=== PATIENT | female | born 1995 | race African-American/Black ===

== ENCOUNTER 2020-07-25 09:50 | Outpatient (REF) | payer OTHER, SELFPAY ==
[2020-07-25 13:45] LABS: Syphilis Screen Nonreactive (Nonreactive)
[2020-07-25 14:20] LABS: CT PCR NOT DETECTED (Not Detect.); NG PCR NOT DETECTED (Not Detect.)
[2020-07-30 08:34] LABS: HBS Num1 1.86 mIU/mL (0-7.99); HBc Num1 0.05 S/CO (0.00-0.79); HBsAGNum1 0.16 S/CO (0.00-0.99); HIV AB/AG Nonreactive (Nonreactive); HIV Num 1 0.07 S/CO (0.00-0.99); Hepatitis B Core Antibody Nonreactive (Nonreactive); Hepatitis B Surface Antigen Negative (Negative); ~Hepatitis B Surface Antibody NONREACTIVE (Nonreactive)
[2020-07-30 09:41] LABS: ~HepC Num1 0.07 S/CO (0.00-0.79); ~Hepatitis C Antibody Nonreactive (Nonreactive)
[2020-07-30 10:26] LABS: HPV mRNA E6/E7 Not Detected (Not Detected)
== END 2020-07-25 09:51 | disposition home or self-care (01) ==
LOC: HO.LAB 09:50
PROVIDERS: PCP Internal Medicine; Visit Provider Advanced Practice Midwife
DX: Z01.411 Encounter for gynecological examination (general) (routine) with abnormal findings (principal); Z11.3 Encounter for screening for infections with a predominantly sexual mode of transmission; N64.4 Mastodynia; Z87.42 Personal history of other diseases of the female genital tract
CPT/HCPCS: 86704; 86706; 86780; 86803; 87340; 87389; 87491; 87591; 87624; 87625; 88142; 99395

== ENCOUNTER 2020-07-26 08:45 | Outpatient (REF) | payer OTHER, SELFPAY | END 2020-07-26 08:46 | disposition home or self-care (01) | LOC: HO.LAB 08:45 | PROVIDERS: Visit Provider Advanced Practice Midwife | DX: R79.89 Other specified abnormal findings of blood chemistry (principal) ==

== ENCOUNTER 2020-07-30 13:33 | Outpatient (REF) | payer OTHER, SELFPAY ==
--- NOTE | 2020-07-30 | US_ITS ---
EXAMINATION: US DIAGNOSTIC ULTRASOUND BREAST, RIGHT CLINICAL INFORMATION: 24-year-old female with right breast pain 10:00 position for 3 weeks. Palpable area noted at clinical exam in area of symptoms. No discharge. Family history breast cancer in maternal aunt. No prior right breast imaging. COMPARISON: Contralateral left breast ultrasound 07/18/2019. TECHNIQUE: Ultrasound right breast is targeted to the area of concern upper outer quadrant. Grayscale imaging and color Doppler are performed without and with harmonics. FINDINGS: There is no focal suspicious finding. There is no cystic or solid mass, architectural abnormality, duct ectasia, or edema in the soft tissue planes. Results are discussed with the patient at time of visit. IMPRESSION: Unremarkable targeted right breast ultrasound. ASSESSMENT: BI-RADS 1: Negative RECOMMENDATION: 1. Patient should be managed based on the clinical impression. If clinically indicated, further evaluation may be considered with surgical consult. Decision to proceed with biopsy should be based on clinical grounds and degree of clinical concern. 2. Otherwise, routine annual screening mammography, beginning age 40, or earlier as clinical risk factors warrant. This patient's information was entered into a reminder system with a target due date for their next breast imaging.
== END 2020-07-30 13:34 | disposition home or self-care (01) ==
LOC: HO.MAMMO 13:33
PROVIDERS: Visit Provider Advanced Practice Midwife
DX: N64.4 Mastodynia (principal)
CPT/HCPCS: 76642

== ENCOUNTER 2021-06-29 21:38 | Emergency (ER) | payer OTHER, SELFPAY ==
[2021-06-29 22:34] VITALS: BP 107/61; PULSE 58; RESP 16; TEMP 36.8; O2SAT 96; BMI 32.1
--- NOTE | 2021-06-30 00:45 | ED.ABDPAIN ---
HPI - Abdominal Pain General Chief Complaint: Abdominal Pain Stated Complaint: Abdominal pain Time Seen by Provider: 06/30/21 00:45 Source: patient Mode of arrival: ambulatory History of Present Illness HPI narrative: 25-year-old female with 2 month history of epigastric/periumbilical pain that is intermittently associated with burning and nausea with some chills but otherwise denies any fever or vomiting and denies any diarrhea. Otherwise, she has not been worked up for this and denies any urinary symptoms. LMP 06/19. Related Data Home Medications Medication Instructions Recorded Confirmed cetirizine 10 mg tablet 10 mg PO DAILY PRN 07/25/20 01/15/21 Previous Rx's Medication Instructions Recorded escitalopram oxalate 10 mg tablet 10 mg PO DAILY 30 Days #30 tab 01/21/21 famotidine 40 mg tablet 40 mg PO DAILY PRN 30 Days #30 tab 01/21/21 hydroxyzine HCl 25 mg tablet 25 mg PO Q6H PRN 30 Days #120 tab 01/21/21 topiramate 25 mg tablet 25 mg PO BEDTIME 30 Days #30 tab 01/21/21 Allergies Allergy/AdvReac Type Severity Reaction Status Date / Time amoxicillin [From AUGMENTIN] Allergy Unknown HIVES Verified 01/15/21 15:46 bee pollen [Bee Stings] Allergy Unknown SWELLING Verified 01/15/21 15:46 cephalexin [CEPHALEXIN] Allergy Unknown HIVES Verified 01/15/21 15:46 clavulanic acid Allergy Unknown HIVES Verified 01/15/21 15:46 [From AUGMENTIN] Review of Systems Review of Systems Pertinent positives and negatives as stated in HPI 10 point review of systems is otherwise negative. Physical Exam Vital Signs: Vital Signs: Last Vital Signs Temp 98.3 F 06/29/21 22:34 Pulse 58 06/29/21 22:34 Resp 16 06/29/21 22:34 BP 107/61 06/29/21 22:34 Pulse Ox 96 06/29/21 22:34 Body Mass Index 32.1 VITAL SIGNS: Reviewed. GENERAL: Well developed, well nourished, in no acute distress. HEAD: Normocephalic/atraumatic EYES: PERRLA, EOMI OROPHARYNX: no oral lesions noted, posterior pharynx clear LUNGS: Normal breath sounds. SpO2<96> CARDIOVASCULAR: Regular rate and rhythm without noted murmurs ABDOMEN: Soft, tenderness in epigastrium as well as left lower quadrant without rebound, non-distended with bowel sounds. SKIN: Inspection of the skin reveals no rashes NEUROLOGIC: Alert and oriented x 4. Course Course Course Narrative: 25-year-old female with history and clinical presentation suggestive of possible gastritis/ulcer as location and history are less consistent with gallbladder or pancreas pathology. 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 Patient wishes to leave and is otherwise hemodynamically stable and despite discussing with the patient any risks she wishes to follow-up with her primary care provider on Thursday morning. Discharge Plan Discharge Clinical Impression: Abdominal discomfort Patient Disposition: Elopement Additional Instructions: Return to the ER for acute worsening of symptoms. Prescriptions: No Action famotidine 40 mg tablet 40 mg PO DAILY PRN (Reason: heartburn) 30 Days Qty: 30 RF: 5 escitalopram oxalate 10 mg tablet 10 mg PO DAILY 30 Days Qty: 30 RF: 3 hydroxyzine HCl 25 mg tablet 25 mg PO Q6H PRN (Reason: anxiety) 30 Days Qty: 120 RF: 3 topiramate 25 mg tablet 25 mg PO BEDTIME 30 Days Qty: 30 RF: 3 cetirizine 10 mg tablet 10 mg PO DAILY PRNRF: 0 Referrals: Tom Lucero MD [Primary Care Provider] - 2 days [facility] Past Medical History Source: nursing notes reviewed Medical History Anxiety GERD without esophagitis Migraine Obesity (BMI 30-39.9) Pseudotumor cerebri Skin abscess Surgical History Hx of gastric bypass Family History Family History Mother Cervical cancer Family history of stomach cancer Social History Social History Alcohol intake: never Advance Directives: No Advance Directives Information Provided: No Patient : No Gender identity: Female
--- NOTE | 2021-06-30 01:08 | PC.NURSE ---
PT LEFT ER AFTER SPEAKING WITH MD.
== END 2021-06-30 01:00 | disposition left against medical advice (07) ==
PROVIDERS: Emergency Provider Student in an Organized Health Care Education/Training Program; PCP Internal Medicine
DX: R10.9 Unspecified abdominal pain (principal)
CPT/HCPCS: 99283

== ENCOUNTER 2021-07-15 11:42 | Outpatient (REF) | payer OTHER, SELFPAY ==
[2021-07-15 13:21] LABS: Alanine Aminotransferase 9 U/L (0-31); Albumin Level 4.1 g/dL (3.5-5.0); Alkaline Phosphatase 31 U/L (39-117); Amylase 50 U/L (28-100); Anion Gap 12 (12-20); Aspartate Amino Transferase 15 U/L (5-31); Bilirubin Direct < 0.2 mg/dL (0.0-0.5); Bilirubin Total 0.3 mg/dL (0.0-1.0); Blood Urea Nitrogen 10 mg/dL (9-16); Calcium 9.4 mg/dL (8.4-10.2); Carbon Dioxide 25 mmol/L (22-29); Chloride 106 mmol/L (96-108); Cholesterol 149 mg/dL; Estimated Glomerular Filt Rate > 60; Glucose Random 84 mg/dL (60-115); HDL Cholesterol 50 mg/dL; LDL Cholesterol Calculated 92 mg/dl; Lipase 34 U/L (8-78); Potassium 4.6 mmol/L (3.3-5.1); Sodium 138 mmol/L (135-145); Total Protein 6.9 g/dL (6.5-8.0); Triglycerides 35 mg/dL
== END 2021-07-15 11:43 | disposition home or self-care (01) ==
LOC: HO.LAB 11:42
PROVIDERS: PCP Internal Medicine; Visit Provider Nurse Practitioner Family
DX: R10.13 Epigastric pain (principal); E78.00 Pure hypercholesterolemia, unspecified
CPT/HCPCS: 36415; 80048; 80061; 80076; 82150; 83690

== ENCOUNTER 2021-07-23 08:15 | Outpatient (REF) | payer OTHER, SELFPAY ==
--- NOTE | ~2021-07-23 | US_ITS ---
EXAMINATION: US ABDOMEN COMPLETE CLINICAL INFORMATION: Epigastric pain with nausea and vomiting x2 months. Right upper quadrant radiation pain with palpation. COMPARISON: None TECHNIQUE: Real-time imaging of the abdominal viscera. FINDINGS: PANCREAS: Normal. ABDOMINAL AORTA: The proximal, mid, and distal segments are normal in caliber. INFERIOR VENA CAVA: Visualized portions are normal. LIVER: Normal. The liver is normal in size. The liver contour is normal. Parenchymal echogenicity is normal. No focal hepatic lesion. There is no intrahepatic biliary duct dilatation seen. GALLBLADDER: Normal. The gallbladder is physiologically distended without evidence of stones, sludge, polyps, wall thickening or pericholecystic fluid. COMMON BILE DUCT: Normal in caliber measuring 0.2 cm in diameter. RIGHT KIDNEY: Normal. No hydronephrosis. No renal calculi or focal parenchymal lesions. The kidney measures 10.0 cm in maximum dimension. LEFT KIDNEY: There is a 4 x 5 mm echogenic lesion in the lower pole of the left kidney suggestive of an angiomyolipoma. There is a 2 mm echogenic density in the midpole with twinkle artifact suggestive of a stone. No hydronephrosis or focal parenchymal lesions. The kidney measures 10.7 cm in maximum dimension. SPLEEN: Normal. The spleen measures 11.9 cm in maximum dimension. FREE FLUID: None. US/US abdomen complete IMPRESSION: Normal-appearing liver and gallbladder. Question small left renal stone and 4 x 5 mm angiomyolipoma.
== END 2021-07-23 08:16 | disposition home or self-care (01) ==
LOC: HO.HMGCX 08:15
PROVIDERS: PCP Internal Medicine; Visit Provider Nurse Practitioner Family
DX: R10.13 Epigastric pain (principal); R10.11 Right upper quadrant pain; R11.2 Nausea with vomiting, unspecified
CPT/HCPCS: 76700

== ENCOUNTER 2021-08-08 09:18 | Outpatient (REF) | payer OTHER, SELFPAY ==
--- NOTE | ~2021-08-08 | CT_ITS ---
EXAMINATION: CT ABDOMEN WITHOUT AND WITH CONTRAST CLINICAL INFORMATION: Benign lipomatous neoplasm of the kidney COMPARISON: Previous abdominal ultrasound 07/23/2021 TECHNIQUE: Contiguous axial thin section helical images of the abdomen were performed before and after the administration of oral contrast and 85 mL of Omnipaque 350 intravenous contrast. The data set was reformatted in the coronal and sagittal planes and reviewed on an independent workstation. This CT examination was performed using dose optimization techniques as appropriate, variously including the following: *Automated exposure control *Adjustment of mA and/or kV according to patient size (this includes techniques or standardized protocols for targeted exams where dose is matched to indication/reason for exam; i.e. extremities or head) *Use of iterative reconstruction technique DLP: 599 mGy-cm FINDINGS: LUNG BASES: The lung bases are clear. LIVER, GALLBLADDER, AND BILIARY TREE: Unremarkable PANCREAS: Unremarkable SPLEEN: Unremarkable ADRENAL GLANDS AND KIDNEYS: There is a 4 mm low-attenuation lesion in the lower pole of the left kidney. This has negative Hounsfield units suggestive of a small angiomyolipoma. Kidneys are otherwise unremarkable. The adrenal glands are unremarkable. BOWEL LOOPS: There are postsurgical changes from gastric bypass. Visualized small and large bowel is unremarkable. LYMPH NODES: Normal. VASCULAR: Unremarkable. 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 Postoperative changes from gastric bypass.
[2021-08-08] MEDS: iohexoL 350 MG/ML 100 ML INFUS..BTL IV (10:44)
== END 2021-08-08 09:19 | disposition home or self-care (01) ==
LOC: HO.CT 09:18
PROVIDERS: PCP Internal Medicine; Visit Provider Nurse Practitioner Family
DX: D17.71 Benign lipomatous neoplasm of kidney (principal); R10.13 Epigastric pain
CPT/HCPCS: 74170; Q9967

== ENCOUNTER 2021-08-23 10:36 | Outpatient (AMB) | payer OTHER, SELFPAY ==
[2021-08-23 10:51] VITALS: BP 118/70; PULSE 62; TEMP 35.9; O2SAT 98; BMI 31.3
--- NOTE | 2021-08-23 10:51 | A.OFFPC_ITS ---
Vital Signs 08/23/21 10:51 Height 5 ft 3 in Weight 177 lb BMI 31.3 BP 118/70 Pulse 62 Pulse Source Pulse Oximeter Temp 96.6 F L Pulse Oximetry (%) 98 Oxygen Delivery Method Room Air Intake Visit Reasons: Annual PE, migraine, anxiety, GERD Allergies amoxicillin [From AUGMENTIN] Allergy (Unknown, Verified 06/28/23 13:31) HIVES bee pollen [Bee Stings] Allergy (Unknown, Verified 06/28/23 13:31) SWELLING cephalexin [CEPHALEXIN] Allergy (Unknown, Verified 06/28/23 13:31) HIVES clavulanic acid [From AUGMENTIN] Allergy (Unknown, Verified 06/28/23 13:31) HIVES Medication List - Last Reconciled 08/23/21 by Tom Lucero MD acetaminophen 500 mg PO Q6H PRN aripiprazole 5 mg PO DAILY omeprazole 20 mg PO BID Tobacco use date assessed: 08/23/21 HPI Annual PE, migraine, anxiety, GERD HPI Details Patient comes in today for her annual physical examination States that she has been experiencing frequent migraine headaches lately She denies any dizziness Denies any chest pains, no SOB Still has on and off nausea and vomiting, especially when she has increased headaches States that she also continues to experience recurrent epigastric pains even though she has been taking her Omeprazole BID, although her Omeprazole has helped somewhat No change in bowel habits noted Denies any acute urinary symptoms PFSH Medical History Insomnia Major depression, recurrent GERD without esophagitis Obesity (BMI 30-39.9) Pseudotumor cerebri Migraine Anxiety Skin abscess Surgical History Hx of gastric bypass (~11/30/18) Family History Mother Cervical cancer Family history of stomach cancer Substance use disorder Other Mental health disorder Social History Household Members: Spouse and Children Housing: House Alcohol intake: never Patient Tobacco Use Status: Never used Tobacco e-Cigarette/Vaping Use: Never Used Second Hand Smoke Exposure: No Substance Use Type: Marijuana service: No Current occupational status: employed 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 1. Little interest or pleasure in doing things: not at all 2. Feeling down, depressed, or hopeless: not at all 3. Trouble falling or staying asleep, or sleeping too much: not at all 4. Feeling tired or having little energy: not at all 5. Poor appetite or overeating: not at all 6. Feeling bad about yourself - or that you are a failure or have let yourself or your family down: not at all 7. Trouble concentrating on things, such as reading the newspaper or watching television: not at all 8. Moving or speaking so slowly that other people could have noticed. Or the opposite - being so fidgety or restless that you have been moving around a lot more than usual: not at all 9. Thoughts that you would be better off or of hurting yourself in some way: not at all Total score: 0 Depression Screening Interpretation: Negative 54442 - PHQ-9 Billing: Yes Source: Developed by Drs. Lester Martinez, Janis Grace, Jaspreet Harding and colleagues, with an educational jersey from [employer]. Thrive Questionnaire Date Thrive assessed: 08/23/21 I am a: Patient What is your living situation today?: I have a steady place to live Within the past 12 months, did the food you bought not last and you didn't have the money to get more?: Never true Within the past 12 months, did you worry whether your food would run out before you got money to buy more?: Never true Do you have trouble paying for medicines?: No Do you have trouble getting transportation to medical appointments?: No Do you have trouble paying your heating and electricity bill?: No Do you have trouble taking care of your child, family member or friend?: No Do you have trouble with day-to-day activities such as bathing, preparing meals, shopping, managing finances, etc.?: No Are you currently unemployed and looking for a job?: No Are you interested in more education?: No Currently or been in a relationship where the following occur: no concerns reported AUDIT C Alcohol Use Questionnaire (AUDIT-C) 1. How often do you have a drink containing alcohol?: Never 3. How often do you have six or more drinks on one occasion?: Never Total Score: 0 Score Reviewed/Action Taken: Yes JOVANNA-7 AMB Questionnaire JOVANNA-7 Date JOVANNA - 7 assessed: 08/23/21 Feeling nervous, anxious, or on edge: 0 = Not at all Not being able to stop or control worryin = Not at all Worrying too much about different things: 0 = Not at all Trouble relaxin = Not at all Being so restless that it is hard to sit still: 0 = Not at all Becoming easily annoyed or irritable: 0 = Not at all Feeling afraid as if something awful might happen: 0 = Not at all Total JOVANNA-7 score (0-4 normal; 5-9 mild; 10-14 moderate; 15-21 severe): 0 Source: Developed by Drs. Lester Martinez, Janis Grace, Jaspreet Harding and colleagues, with an educational jersey from [employer]. Review of Systems Const Denies chills, Denies fatigue, Denies fever(s), Reports headache(s) (on and off) and Denies malaise Eyes Denies blurry vision, Denies change in vision, Denies irritation and Denies itchy eyes ENT Denies dysphagia, Denies dizziness, Denies otalgia, Reports headache(s) (on and off), Denies nasal congestion, Denies neck pain, Denies odynophagia, Denies sinus pain and Denies sore throat Card Denies chest pain, Denies rapid heart rate, Denies irregular heart rhythm, Denies palpitations and Denies dyspnea Resp Denies chest congestion, Denies cough, Denies dyspnea and Denies wheezing GI Reports abdominal pain (epigastric, on and off), Denies bloating, Denies constipation, Denies dysphagia, Denies heartburn, Denies diarrhea, Reports nausea (at times, especially when headaches are increased), Denies odynophagia and Reports vomiting (occasionally) Denies hematuria, Denies urinary frequency, Denies dysuria, Denies urinary incontinence and Denies urinary urgency Musc Denies back pain, Denies arthralgias, Denies joint swelling, Denies muscle weakness and Denies neck pain Skin/Breast Denies breast pain, Denies breast mass, Denies change in pigmentation, Denies le sions, Denies rash and Denies unusual bruising Neuro Denies dizziness, Reports headache(s) (on and off) and Denies paresthesias Psych Denies anxiety and Denies depression Endo Denies fatigue and Denies palpitations [place]/Lymph Denies easy bruising Aller/Immun Denies itchy eyes and Denies wheezing Physical exam (Primary Care) Vital Signs: Last Vital Signs Temp 96.6 F L 08/23/21 10:51 Pulse 62 08/23/21 10:51 BP 118/70 08/23/21 10:51 Pulse Ox 98 08/23/21 10:51 Oxygen Delivery Method Room Air 08/23/21 10:51 BMI result Body Mass Index 31.3 Tobacco/Smoking Status: Tobacco use Status Tobacco use date assessed 08/23/21 08/23/21 10:56 Patient Tobacco Use Status Never used Tobacco 08/23/21 10:56 e-Cigarette/Vaping Use Never Used 08/23/21 10:56 PHQ-9: PHQ-9 Score PHQ-9: Total score 0 08/23/21 11:34 Depression Screening Interpretation: Negative Thrive Assessment: Date of Thrive Assessment Date Thrive assessed 08/23/21 08/23/21 10:56 Currently or been in a relationship where the following occur: no concerns reported Const General: no acute distress, alert and awake Orientation/consciousness: patient oriented x3 HENMT Head: Yes normocephalic and Yes atraumatic Ears: external ears normal, TM's normal bilaterally and EAC's normal General nose exam: No nasal discharge present Face and sinus: Yes normal facial exam and Yes sinuses nontender Teeth and gingiva: dentition normal Throat: Yes posterior oropharynx normal and Yes tonsils normal (no TP congestion) Eyes Eyelids: Yes eyelids normal Conjunctivae: conjunctivae normal Pupils: Equal, round and reactive pupils present EOM: EOMs intact bilaterally Neck Neck: Yes no lymphadenopathy and Yes supple Thyroid: Thyroid normal Resp Auscultation: clear to auscultation bilaterally, no rales and no wheezes Cardio Rate: regular rate Rhythm: regular rhythm Heart sounds: no murmurs GI Palpation (GI): Soft to palpation, Tenderness to palpation present (GI) in the epigastrum, no guarding, No hepatosplenomegaly present and No Rebound tenderness present Auscultation: normal bowel sounds General: Yes no CVA tenderness Back/Spine/Pelvis Back: no CVA tenderness Thoracic/Lumbar Spine: thoracic and lumbar spine normal to inspection Skin Lesions: no lesions Rashes: no rashes Neuro General: patient oriented x3, moves all extremities, no focal motor deficits and CN's II-XI intact bilaterally Cranial nerves: Yes Equal, round and reactive pupils present Cognition (Neuro): normal cognition Gait exam (Neuro): Normal gait present Extrem General: Yes no clubbing, cyanosis or edema Office Procedures Flu Questionnaire Does the patient have a severe egg allergy?: No Does the patient have severe life threatening allergies?: No Does the patient have a fever or illness today?: No Has the patient ever had Guillain-[place] Syndrome?: No Has the patient ever had any past reaction to a flu shot?: No Immunizations flu vacc [id number] 6mos up(PF) 60 mcg(15 mcgx4)/0.5 mL IM syringe Performing Provider: Tom Lucero MD [facility] Documented (not given) by: PUJA Mendez on 08/23/21 10:56 Reason Not Given: Patient Refused Assessment and Plan Assessment & Plan (1) Annual physical exam: Code(s): Z00.00 - Encounter for general adult medical examination without abnormal findings Plan: Check labs (2) Abdominal pain: Code(s): R10.9 - Unspecified abdominal pain Qualifiers: Abdominal location: epigastric Qualified Code(s): R10.13 - Epigastric pain Plan: Reinforced dietary restrictions Continue Omeprazole 40 mg QD; will start her additionally on Carafate 1 gm QID Follow up with GI as scheduled (3) Migraine: Code(s): G43.909 - Migraine, unspecified, not intractable, without status migrainosus Qualifiers: Intractability: not intractable Migraine type: unspecified Status migrainosus presence: without status migrainosus Qualified Code(s): G43.909 - Migraine, unspecified, not intractable, without status migrainosus Plan: Reinforced avoidance of migraine triggers Will start patient on Topiramate 25 mg Q HS for migraine headache prophylaxis (4) Insomnia: Code(s): G47.00 - Insomnia, unspecified Qualifiers: Insomnia type: unspecified Qualified Code(s): G47.00 - Insomnia, unspecified Plan: Sleep hygiene reinforced Continue Trazodone 50 mg Q HS PRN (5) Bipolar 2 disorder, major depressive episode: Code(s): F31.81 - Bipolar II disorder Plan: Continue Risperidone 0.5 mg Q HS Follow up with psychiatry as scheduled (6) Obesity (BMI 30-39.9): Code(s): E66.9 - Obesity, unspecified Plan: Reinforced diet/exercise as tolerated/lose weight Plan Follow up in 3 months Orders: Orders UA CC w/rflx Micro + Cult 08/28/21 Z00.00 - Encounter for general adult medical examination without abnormal findings, R10.9 - Unspecified abdominal pain TSH reflex Free T4 08/28/21 Z00.00 - Encounter for general adult medical exami nation without abnormal findings Influenza [id number] Immunization 08/23/21 Z23 - Encounter for immunization Complete Blood Count Auto Diff 08/28/21 Z00.00 - Encounter for general adult medical examination without abnormal findings Medications: New topiramate 25 mg PO BEDTIME 30 tabs 3RF 30 days G43.909 - Migraine, unspecified, not intractable, without status migrainosus sucralfate (Carafate) 1 g PO QIDACHS 120 tabs 3RF 30 days R10.9 - Unspecified abdominal pain Coding Level of Care Code Est Pt Prev Care 18-39y([id number]) Diagnoses Annual physical exam Z00.00 Epigastric pain R10.13 Abdominal location: epigastric Migraine without status migrainosus, not intractable, unspecified migraine type G43.909 Intractability: not intractable Migraine type: unspecified Status migrainosus presence: without status migrainosus Insomnia, unspecified type G47.00 Insomnia type: unspecified Bipolar 2 disorder, major depressive episode F31.81 Obesity (BMI 30-39.9) E66.9 Additional Codes PHQ-9 - 82837 - PHQ-9 Billing: Yes ([id number])
== END 2021-08-23 11:51 | disposition home or self-care (01) ==
LOC: HO.HMGH 10:36
PROVIDERS: PCP Internal Medicine; Visit Provider Internal Medicine
DX: Z00.00 Encounter for general adult medical examination without abnormal findings (principal); R10.13 Epigastric pain; G43.909 Migraine, unspecified, not intractable, without status migrainosus; F31.81 Bipolar II disorder; G47.00 Insomnia, unspecified; E66.9 Obesity, unspecified; Z68.31 Body mass index [BMI] 31.0-31.9, adult; Z23 Encounter for immunization; R10.9 Unspecified abdominal pain
CPT/HCPCS: 99395

== ENCOUNTER 2021-08-28 09:57 | Outpatient (REF) | payer OTHER, SELFPAY ==
[2021-08-28 11:19] LABS: MANUAL DIFF FLAG NO
[2021-08-28 11:55] LABS: Basophils Absolute Auto 0.1 X10*3/uL (0.0-0.2); Basophils Percent Auto 1.1 % (0-2); Eosinophils Absolute Auto 0.1 X10*3/uL (0.0-0.4); Eosinophils Percent Auto 2.5 % (0-4); Hematocrit 38.3 % (37.0-47.0); Hemoglobin 12.4 g/dl (12.0-16.0); Imm Gran Abs Auto 0.01 X10*3/uL (0.00-0.03); Imm Gran Pct Auto 0.2 % (0.0-0.4); Lymphocytes Absolute Auto 1.9 X10*3/uL (1.2-4.9); Lymphocytes Percent Auto 36.2 % (20-40); Mean Corpuscular HGB Conc 32.4 g/dl (31.0-35.0); Mean Corpuscular Volume 92.7 fL (80.0-98.0); Mean Platelet Volume 11.4 fL (9.4-12.3); Monocytes Absolute Auto 0.5 X10*3/uL (0.1-1.2); Monocytes Percent Auto 9.8 % (2-11); Neutrophils Absolute Auto 2.7 x10*3/uL (2.0-8.3); Neutrophils Percent Auto 50.2 % (45-73); Platelet Count 199 X10*3/uL (160-400); Red Blood Count 4.13 X10*6/uL (4.20-5.50); Red Cell Distribution Width 12.9 % (11.0-16.0); White Blood Count 5.3 X10*3/uL (4.8-10.8)
[2021-08-28 11:59] LABS: Appearance Urine CLEAR; Color Urine YELLOW; Glucose Urine UA NEG (NEG); Leukocyte Esterase Urine NEG (NEG); Nitrite Urine NEG (NEG); Specific Gravity - Urine 1.025 (1.005-1.025); Urine Blood NEG (NEG); Urine Ketones 5 MG/DL (NEG); Urine Protein NEG (NEG-TRACE)
[2021-08-28 12:39] LABS: HIV AB/AG Nonreactive (Nonreactive); HIV Num 1 0.06 S/CO (0.00-0.99)
[2021-08-28 12:47] LABS: Syphilis Screen Nonreactive (Nonreactive)
[2021-08-29 10:56] LABS: BV Int Neg Control Negative (Negative); BV Int Pos Control Positive (Positive)
== END 2021-08-28 09:58 | disposition home or self-care (01) ==
LOC: HO.LAB 09:57
PROVIDERS: Advanced Practice Midwife; PCP Internal Medicine; Referring Provider Internal Medicine; Visit Provider Advanced Practice Midwife
DX: Z00.00 Encounter for general adult medical examination without abnormal findings (principal); Z11.3 Encounter for screening for infections with a predominantly sexual mode of transmission; Z11.4 Encounter for screening for human immunodeficiency virus [HIV]; N89.8 Other specified noninflammatory disorders of vagina; R10.9 Unspecified abdominal pain
CPT/HCPCS: 36415; 81003; 84443; 85025; 86780; 87389; 87480; 87510; 87660

== ENCOUNTER 2022-08-08 11:45 | Outpatient (RCR) | payer OTHER, SELFPAY ==
[2022-08-08 12:15] VITALS: BMI 31.6
--- NOTE | 2022-08-08 13:30 | PC.ADMIT ---
Patient is a 26 year old female who was referred to [facility] by her PCP's office d/t increased sxs of depression and passive SI, no plan or intent to kill herself. Patient struggling with suicidal thoughts. Denied suicidal thoughts at present. Asked patient who she could reach out to when having these thoughts and she stated she could call crisis. Patient has a long history of self harming behavior, last cut herself last month. She also reports a, bad relationship with food and restricts her food intake at times and other times purges when she eats too much. Patient is at [facility] to learn healthier coping skills to deal with her emotions. Patient wants to learn more about herself while in the program and stated she wants to be happy. Patient is alert and oriented x4. Calm and cooperative. Medications reconciled with patient and patient's pharmacy.
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
--- NOTE | 2022-08-12 09:32 | PC.NURSE ---
Patient came in this morning and c/o a cough. Patient advised to get Covid tested at [facility] and take the day off. PHP team is aware.
--- NOTE | 2022-08-12 14:09 | PM.EVENT ---
Event Note Date of Service: 08/12/22 Event Note: Patient currently out with COVID. One month prescription sent in for Risperdal and trazodone. Patient already had a 1 month supply of Lamictal titration.
--- NOTE | 2022-08-15 08:34 | HO.PHPIOP ---
The client decided that she is too anxious to continue in PHP and requested a referral for outpatient tx. I made the referral to [facility] . She is set with an appointment for Eric Curtis [facility] 08/29, and Mayur Huddleston 09/15 and 10/05
== END 2022-08-12 23:59 | disposition home or self-care (01) ==
LOC: HO.PHPA 11:45
PROVIDERS: Visit Provider Psychiatry & Neurology Psychiatry
DX: F31.81 Bipolar II disorder (principal); Z91.51 Personal history of suicidal behavior
CPT/HCPCS: 90792; 90853

== ENCOUNTER 2022-08-12 08:59 | Outpatient (REF) | payer OTHER, SELFPAY ==
[2022-08-12 09:25] LABS: COVID-19 Test Positive (Negative)
== END 2022-08-12 09:00 | disposition home or self-care (01) ==
LOC: HO.LAB 08:59
PROVIDERS: Visit Provider Internal Medicine
DX: Z20.822 Contact with and (suspected) exposure to COVID-19 (principal)
CPT/HCPCS: 87635; C9803

== ENCOUNTER 2022-09-02 10:56 | Outpatient (REF) | payer OTHER, SELFPAY ==
[2022-09-03 13:57] LABS: BV Int Neg Control Negative (Negative); BV Int Pos Control Positive (Positive)
== END 2022-09-02 10:57 | disposition home or self-care (01) ==
LOC: HO.LNP 10:56
PROVIDERS: Visit Provider Advanced Practice Midwife
DX: Z01.419 Encounter for gynecological examination (general) (routine) without abnormal findings (principal)
CPT/HCPCS: 87480; 87510; 87660

== ENCOUNTER 2022-09-02 11:16 | Outpatient (REF) | payer OTHER, SELFPAY ==
[2022-09-02 11:32] LABS: MANUAL DIFF FLAG NO
[2022-09-02 11:59] LABS: Basophils Percent Auto 0.8 % (0-2); Eosinophils Absolute Auto 0.1 X10*3/uL (0.0-0.4); Eosinophils Percent Auto 2.1 % (0-4); Hematocrit 40.2 % (37.0-47.0); Hemoglobin 13.1 g/dl (12.0-16.0); Imm Gran Abs Auto 0.06 X10*3/uL (0.00-0.03); Imm Gran Pct Auto 1.1 % (0.0-0.4); Lymphocytes Absolute Auto 1.3 X10*3/uL (1.2-4.9); Lymphocytes Percent Auto 24.7 % (20-40); Mean Corpuscular HGB Conc 32.6 g/dl (31.0-35.0); Mean Corpuscular Hemoglobin 29.7 pg (27.0-33.0); Mean Corpuscular Volume 91.2 fL (80.0-98.0); Mean Platelet Volume 11.4 fL (9.4-12.3); Monocytes Absolute Auto 0.5 X10*3/uL (0.1-1.2); Monocytes Percent Auto 9.9 % (2-11); Neutrophils Absolute Auto 3.2 x10*3/uL (2.0-8.3); Neutrophils Percent Auto 61.4 % (45-73); Platelet Count 200 X10*3/uL (160-400); Red Blood Count 4.41 X10*6/uL (4.20-5.50); Red Cell Distribution Width 13.1 % (11.0-16.0); White Blood Count 5.2 X10*3/uL (4.8-10.8)
[2022-09-02 12:43] LABS: HBc Num1 0.05 S/CO (0.00-0.79); HIV AB/AG Nonreactive (Nonreactive); HIV Num 1 0.06 S/CO (0.00-0.99); Hepatitis B Core Antibody Nonreactive (Nonreactive); ~HepC Num1 0.08 S/CO (0.00-0.79); ~Hepatitis C Antibody Nonreactive (Nonreactive)
[2022-09-02 12:55] LABS: Alanine Aminotransferase 8 U/L (0-31); Albumin Level 4.2 g/dL (3.5-5.0); Alkaline Phosphatase 39 U/L (39-117); Anion Gap 11 (12-20); Aspartate Amino Transferase 13 U/L (5-31); Bilirubin Total 0.5 mg/dL (0.0-1.0); Blood Urea Nitrogen 15 mg/dL (9-16); Calcium 9.1 mg/dL (8.4-10.2); Carbon Dioxide 25 mmol/L (22-29); Chloride 108 mmol/L (96-108); Cholesterol 153 mg/dL; Estimated Glomerular Filt Rate > 60; Glucose Fasting 85 mg/dL (60-99); HDL Cholesterol 52 mg/dL; LDL Cholesterol Calculated 95 mg/dl; Potassium 4.9 mmol/L (3.3-5.1); Sodium 139 mmol/L (135-145); Triglycerides 32 mg/dL
[2022-09-02 13:05] LABS: Appearance Urine Clear; Color Urine Yellow; Glucose Urine UA Negative (Negative); Leukocyte Esterase Urine Negative (Negative); Nitrite Urine Negative (Negative); Urine Blood Negative (Negative); Urine Ketones Negative (Negative); Urine Protein Negative (Neg-Trace)
[2022-09-02 16:39] LABS: Vitamin D 25-OH Total 27.6 ng/mL (>30)
[2022-09-02 17:19] LABS: CT PCR NOT DETECTED (Not Detect.); NG PCR NOT DETECTED (Not Detect.)
[2022-09-03 07:09] LABS: Syphilis Screen Nonreactive (Nonreactive)
== END 2022-09-02 11:17 | disposition home or self-care (01) ==
LOC: HO.LAB 11:16
PROVIDERS: Absent Provider Internal Medicine; PCP Internal Medicine; Visit Provider Advanced Practice Midwife
DX: Z00.00 Encounter for general adult medical examination without abnormal findings (principal); Z11.3 Encounter for screening for infections with a predominantly sexual mode of transmission; Z11.4 Encounter for screening for human immunodeficiency virus [HIV]; E55.9 Vitamin D deficiency, unspecified; R30.0 Dysuria; E78.00 Pure hypercholesterolemia, unspecified; K21.9 Gastro-esophageal reflux disease without esophagitis; G43.909 Migraine, unspecified, not intractable, without status migrainosus; F33.9 Major depressive disorder, recurrent, unspecified; E66.9 Obesity, unspecified; Z20.2 Contact with and (suspected) exposure to infections with a predominantly sexual mode of transmission
CPT/HCPCS: 36415; 80053; 80061; 81003; 82306; 84443; 85025; 86704; 86780; 86803; 87389; 87491; 87591

== ENCOUNTER 2023-01-02 08:15 | Outpatient (REF) | payer OTHER, SELFPAY ==
[2023-01-03 12:52] LABS: BV Int Neg Control Negative (Negative); BV Int Pos Control Positive (Positive)
== END 2023-01-02 08:16 | disposition home or self-care (01) ==
LOC: HO.LNP 08:15
PROVIDERS: PCP Internal Medicine; Visit Provider Advanced Practice Midwife
DX: R10.2 Pelvic and perineal pain (principal); N93.0 Postcoital and contact bleeding; N76.0 Acute vaginitis
CPT/HCPCS: 87480; 87510; 87660; 99212

== ENCOUNTER 2023-05-28 13:27 | Outpatient (REF) | payer OTHER, SELFPAY ==
[2023-05-29 03:20] LABS: HBS Num1 1.38 mIU/mL (0-7.99); HBc Num1 0.18 S/CO (0.00-0.79); HBsAGNum1 0.33 S/CO (0.00-0.99); Hepatitis B Core Antibody Nonreactive (Nonreactive); Hepatitis B Surface Antigen Negative (Negative); ~Hepatitis B Surface Antibody NONREACTIVE (Nonreactive)
[2023-06-01 21:34] LABS: Rubella IgG Antibody 5.82 Index
[2023-06-02 17:23] LABS: Rubeola IgG (Measles) >300.00 AU/mL
== END 2023-05-28 13:28 | disposition home or self-care (01) ==
LOC: HO.LAB 13:27
PROVIDERS: PCP Internal Medicine; Visit Provider Internal Medicine
DX: Z01.84 Encounter for antibody response examination (principal); Z28.39 Other underimmunization status; Z11.59 Encounter for screening for other viral diseases; Z72.89 Other problems related to lifestyle
CPT/HCPCS: 36415; 86704; 86706; 86735; 86762; 86765; 86787; 87340

== ENCOUNTER 2023-06-15 14:30 | Outpatient (AMB) | payer OTHER, SELFPAY ==
--- NOTE | 2023-06-15 14:56 | AM.OFFVISNUR ---
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 Eligible 06/15/23 Private Coding Diagnoses Assessment & Plan Assessment & Plan Orders: Orders Hepatitis B Adult Immunization Today Z23 - Encounter for immunization
== END 2023-06-15 15:00 | disposition home or self-care (01) ==
PROVIDERS: PCP Internal Medicine; Visit Provider Internal Medicine
DX: Z23 Encounter for immunization (principal)
CPT/HCPCS: 90471; 90746

== ENCOUNTER 2023-06-28 13:07 | Emergency (ER) | payer OTHER, SELFPAY ==
--- NOTE | ~2023-06-28 | XR_ITS ---
EXAMINATION: XR CHEST CLINICAL INFORMATION: Chest pain COMPARISON: None available. TECHNIQUE: 2 views of the chest were obtained. FINDINGS: No significant abnormality is noted involving the heart, lungs, mediastinum, bony thorax or soft tissues. XR/XR chest 2V IMPRESSION: Unremarkable chest examination.
[2023-06-28 13:31] VITALS: BP 144/73; PULSE 64; RESP 19; TEMP 36.6; O2SAT 99; BMI 33.7
--- NOTE | 2023-06-28 13:31 | ED_ITS ---
HPI - General Adult General Chief complaint: General Medical Stated complaint: Vomiting blood Time Seen by Provider: 06/28/23 17:44 Source: patient Mode of arrival: ambulatory Limitations: no limitations History of Present Illness HPI narrative: 27 yo female with history of gastric bypass, GERD/gastritis here with complaints of upper abdominal pain since drinking two miller goose with mahesh jiménezondade with 2 episodes of bright red blood noted in vomit. no black or bloody stools. Patient has had some constipation. No fevers, chills, urinary symptoms, chest pain. Patient reports she has been able to drink some sips of water today. Related Data Previous Rx's Medication Instructions Recorded topiramate 25 mg tablet 25 mg PO BEDTIME 30 days #30 tabs 08/29/22 risperidone 0.5 mg tablet 0.5 mg PO BEDTIME #30 tabs 09/26/22 trazodone 50 mg tablet 50 mg PO BEDTIME PRN sleep #30 tabs 12/22/22 metronidazole 500 mg tablet 500 mg PO Q12H 7 days #14 tabs 01/02/23 omeprazole 40 mg capsule,delayed 40 mg PO DAILY 90 days #90 caps 03/30/23 release Allergies Allergy/AdvReac Type Severity Reaction Status Date / Time amoxicillin [From AUGMENTIN] Allergy Unknown HIVES Verified 06/28/23 13:31 bee pollen [Bee Stings] Allergy Unknown SWELLING Verified 06/28/23 13:31 cephalexin [CEPHALEXIN] Allergy Unknown HIVES Verified 06/28/23 13:31 clavulanic acid Allergy Unknown HIVES Verified 06/28/23 13:31 [From AUGMENTIN] Review of Systems 2 Review of Systems: Yes all other systems are reviewed and are negative Constitutional: Constitutional: Reports no additional constitutional complaints, Denies body ache(s), Denies chills, Denies fever(s), Denies headache(s) and Denies weakness Eyes: Eyes: Reports no additional eye complaints and Denies change in vision ENT: Reports system reviewed and no additional complaints, except as documented, Denies dizziness, Denies headache(s), Denies nasal congestion, Denies nasal discharge and Denies neck pain Cardiovascular: Cardiovascular: Reports no additional cardiovascular complaints, Denies chest pain, Denies leg edema and Denies dyspnea Respiratory: Respiratory: Reports no additional respiratory complaints, Denies cough and Denies dyspnea Gastrointestinal: Gastrointestinal: Reports no additional gastrointestinal complaints, Reports abdominal pain, Denies melena, Denies hematochezia, Denies diarrhea, Reports nausea, Reports vomiting and Reports hematemesis Genitourinary: Genitourinary: Reports no additional female genitourinary complaints and Denies urinary incontinence Musculoskeletal: Musculoskeletal: Reports no additional musculoskeletal complaints, Denies back pain, Denies arthralgias, Denies joint swelling, Denies neck pain, Denies numbness and Denies tingling Integumentary/Breasts: Skin/Breast: Reports system reviewed and no additional complaints, except as docu and Denies rash Neurologic: Reports system reviewed and no additional complaints, except as documented, Denies Abnormal speech present, Denies dizziness, Denies headache(s), Denies numbness, Denies tingling and Denies weakness PMFSH Past Medical History Attestation statement: The following information was validated with the patient. Source: old records reviewed and nursing notes reviewed Medical History Insomnia Major depression, recurrent GERD without esophagitis Obesity (BMI 30-39.9) Pseudotumor cerebri Migraine Anxiety Skin abscess Surgical History Hx of gastric bypass (~11/30/18) Family History Family History Mother Cervical cancer Family history of stomach cancer Substance use disorder Other Mental health disorder Social History Social History Household Members: Spouse and Children Housing: House Alcohol intake: never Patient Tobacco Use Status: Never used Tobacco e-Cigarette/Vaping Use: Never Used Second Hand Smoke Exposure: No Substance Use Type: Marijuana Advance Directives: No Advance Directives Information Provided: Yes service: No Current occupational status: employed 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 Gender identity: Female Physical Exam ED Vital Signs: Vital Signs - 24 hr 06/28/23 13:31 06/28/23 16:43 06/28/23 17:53 Temperature 98 F 97.8 F 98.2 F Pulse Rate 64 55 58 Respiratory Rate 19 18 16 Blood Pressure 144/73 H 113/51 L 122/58 L Pulse Oximetry 99 100 98 Oxygen Delivery Method Room Air Room Air Room Air BMI result Body Mass Index 33.7 Const General: cooperative, healthy appearing, comfortable and no acute distress Orientation/consciousness: patient oriented x3 Limitations: no limitations HENMT Head: Yes normal to inspection Ears: hearing grossly normal bilaterally General nose exam: Normal external nose present Face and sinus: Yes normal facial exam Mouth: Normal oral and palatal mucosa present Throat: Yes posterior oropharynx normal Eyes General: appearance normal, both eyes and all related structures Pupils: Equal, round and reactive pupils present Neck Neck: Yes normal visual inspection Chest Chest palpation & inspection: normal inspection of the chest Resp Effort & Inspection: normal respiratory effort Auscultation: clear to auscultation bilaterally Cardio Rate: regular rate Rhythm: regular rhythm Peripheral pulses: Peripheral pulses 2+ throughout GI Other: [employer]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 Inspection: Yes normal to inspection Palpation (GI): Soft to palpation and nontender Auscultation: normal bowel sounds Rectal Exam - Female: visual inspection normal, normal sphincter tone and heme negative stool Back/Spine/Pelvis Thoracic/Lumbar Spine: thoracic and lumbar spine normal to inspection Skin General skin exam: no rashes or lesions noted Neuro General: patient oriented x3, no focal motor deficits and normal sensation to monofilament Cranial nerves: Yes Equal, round and reactive pupils present Cognition (Neuro): normal cognition Speech: No Abnormal speech present Gait exam (Neuro): Normal gait present Motor exam (neuro): 5/5 motor strength present throughout Extrem General: Yes normal to inspection Course Course Course Narrative: This is an RME: Additional HPI, ROS, PE not included below will be deferred to primary provider. Patient is a 27-year-old female who presents to the emergency department for evaluation of hematemesis. Reports yesterday she had 2 alcoholic beverages, soon after she had vomiting x2 reports doctor and collar with presence of clots. Additionally she is experiencing have chest pain described as a chest tightness. Plan: Labs, EKG, CXR Reevaluation(s) Reevaluation #1: [id number] out to Tabitha LARKIN pending PO trial Medications Administered Discontinued Medications Generic Name Dose Route Start Last Admin Trade Name Freq PRN Reason Stop Dose Admin Al Hydroxide/Mg Hydroxide 30 ml 06/28/23 17:52 06/28/23 18:26 Magnesium Hydrox/Alum Hydrox 30 Ml Oral.Susp PO 06/28/23 17:53 30 ml ONCE ONE Administration Famotidine 20 mg 06/28/23 17:52 06/28/23 18:23 Famotidine/Pf 20 Mg/2 Ml Vial IVPUSH 06/28/23 17:53 20 mg ONCE ONE Administration Sodium Chloride 1,000 mls @ 999 mls/hr 06/28/23 17:52 06/28/23 18:23 Ns IV 06/28/23 18:52 999 mls/hr .Q1H1M STA Administration Lidocaine HCl 15 ml 06/28/23 17:52 06/28/23 18:26 Lidocaine Hcl Viscous 2 % 15 Ml Solution MUCOUS MEM 06/28/23 17:53 15 ml ONCE ONE Administration Medical Decision Making Medical Decision Making [facility] Narrative: 27 yo female with history of gastric bypass, GERD/gastritis here with complaints of upper abdominal pain since drinking two miller goose with mikes hards lemondade with 2 episodes of bright red blood noted in vomit. no black or bloody stools. Patient has had some constipation. No fevers, chills, urinary symptoms, chest pain. Patient reports she has been able to drink some sips of water today. on exam patient has no focal abdominal tenderness. Her vitals are stable. Her stool is brown. Will obtain labs, EKG, UA, urine , occult stool, CXR will place PIV and give famotidine, GI cocktail, IVF Differential Diagnosis Differential Diagnoses: The differential diagnosis associated with the presentation includes gastritis, esophagitis, GERD low concern for GI bleed, PUD, Boerhaave syndrome Admission/Observation Consideration of admission/observation: Escalation of care including admission/observation considered hemoglobin and hematocrit are stable. No additional episodes of hematemesis, stool is brown so low concern for GI bleed. Likely gastritis and patient can be discharged home with recommendations for bland diet and continuing her PPI Lab Data MDM Lab Attestation statement: I reviewed the patient's lab results. 06/28/23 14:15 06/28/23 14:15 Labs: Lab Results 06/28/23 06/28/23 06/28/23 Range/Units 14:15 17:55 18:12 WBC 6.9 (4.8-10.8) X10*3/uL RBC 4.49 (4.20-5.50) X10*6/uL Hgb 13.4 (12.0-16.0) g/dl Hct 40.1 (37.0-47.0) % MCV 89.3 (80.0-98.0) fL MCH 29.8 (27.0-33.0) pg MCHC 33.4 (31.0-35.0) g/dl RDW 12.8 (11.0-16.0) % Plt Count 221 (160-400) X10*3/uL MPV 10.7 (9.4-12.3) fL Immature Gran % (Auto) 0.1 (0.0-0.4) % Neut % (Auto) 69.1 (45-73) % Lymph % (Auto) 18.8 L (20-40) % Warren % (Auto) 8.8 (2-11) % Eos % (Auto) 2.5 (0-4) % Baso % (Auto) 0.7 (0-2) % Lymph # (Auto) 1.3 (1.2-4.9) X10*3/uL Warren # (Auto) 0.6 (0.1-1.2) X10*3/uL Eos # (Auto) 0.2 (0.0-0.4) X10*3/uL Baso # (Auto) 0.1 (0.0-0.2) X10*3/uL Abs Immat Gran (auto) 0.01 (0.00-0.03) X10*3/uL Absolute Neuts (auto) 4.8 (2.0-8.3) x10*3/uL Absolute Nucleated RBC 0.000 (0.0-0.012) X10*3/uL Nucleated RBC % (auto) 0.0 (0.0-0.2) /100WBC Sodium 141 (135-145) mmol/L Potassium 3.8 D (3.3-5.1) mmol/L Chloride 106 (96-108) mmol/L Carbon Dioxide 26 (22-29) mmol/L Anion Gap 13 (12-20) BUN 15 (9-16) mg/dL Creatinine 0.82 (0.5-1.4) mg/dL Estim Creat Clear Calc 105.3 Estimated GFR > 60 Random Glucose 80 (60-115) mg/dL Calcium 9.8 D (8.4-10.2) mg/dL Total Bilirubin 0.5 (0.0-1.0) mg/dL AST 20 (5-31) U/L ALT 17 (0-31) U/L Alkaline Phosphatase 38 L (39-117) U/L Troponin I High Sens < 2.7 (<3.5-17.0) ng/L Total Protein 7.5 (6.5-8.0) g/dL Albumin 4.4 (3.5-5.0) g/dL Lipase 22 (8-78) U/L Urine Color Dark Yellow Urine Appearance Clear Urine pH 5.5 (5.0-9.0) Ur Specific Andrews >= 1.030 H (1.005-1.025) Urine Protein Trace (Neg-Trace) mg/dL Urine Glucose (UA) Negative (Negative) mg/dL Urine Ketones 80 (Negative) mg/dL Urine Blood Negative (Negative) Urine Nitrite Negative (Negative) Ur Leukocyte Esterase Negative (Negative) Urine Test NEGATIVE (NEGATIVE) Stool Occult Blood NEGATIVE (NEGATIVE) Independent Interpretation I performed an independent interpretation of an: EKG and Plain X-Ray Interpretation: I independently reviewed the x-ray and agree with the radiology report I independently viewed the EKG which shows normal sinus rhythm with a rate of 61, normal MA, normal QRS, normal QT Radiology Impression Discussion of test interpretation with radiology: I have reviewed the radiologist's reading. Radiologist Impression: [place] [id number] XRay Report Signed Patient: Stanley Herman MR#: [id number] : 1995 Acct:[id number] Age/Sex: 27 / F ADM Date: 06/28/23 Loc: .ED Attending Dr: Ordering Physician: Tabitha Neff CNP Date of Service: 06/28/23 Procedure(s): XR chest 2V Accession Number(s): [id number] cc: Tom Lucero MD; Tabitha Neff CNP~ EXAMINATION: XR CHEST CLINICAL INFORMATION: Chest pain COMPARISON: None available. TECHNIQUE: 2 views of the chest were obtained. FINDINGS: No significant abnormality is noted involving the heart, lungs, mediastinum, bony thorax or soft tissues. XR/XR chest 2V IMPRESSION: Unremarkable chest examination. Independent Historian Clinical information obtained from an independent historian. History obtained from or confirmed by: Spouse Discharge Plan Discharge Clinical Impression: Gastritis Patient Disposition: Still a Patient Instructions: Gastritis (ED), Diet for Stomach Ulcers and Gastritis (ED) Additional Instructions: Return for worsening symptoms including abdominal pain, additional episodes of vomiting blood, black or bloody stools Prescriptions: No Action risperidone 0.5 mg tablet 0.5 mg PO BEDTIME Qty: 30 0RF trazodone 50 mg tablet 50 mg PO BEDTIME PRN (Reason: sleep) Qty: 30 2RF omeprazole 40 mg capsule,delayed release(DR/EC) 40 mg PO DAILY 90 Days Qty: 90 1RF topiramate 25 mg tablet 25 mg PO BEDTIME 30 Days Qty: 30 3RF metronidazole 500 mg tablet 500 mg PO Q12H 7 Days Qty: 14 0RF Referrals: Tom Lucero MD [Primary Care Provider] - 1 week
--- NOTE | 2023-06-28 13:33 | ECG_ITS ---
Test Reason : CP Blood Pressure : / mmHG Vent. Rate : 061 BPM Atrial Rate : 061 BPM P-R Int : 150 ms QRS Dur : 078 ms QT Int : 428 ms P-R-T Axes : 060 042 059 degrees QTc Int : 430 ms Normal sinus rhythm Normal ECG When compared with ECG of 19-MAY-2020 17:56, QT has lengthened Referred By: Tabitha Neff Electronically Signed By:TEE SUMMERS
[2023-06-28 14:20] LABS: MANUAL DIFF FLAG NO
[2023-06-28 14:21] LABS: Basophils Absolute Auto 0.1 X10*3/uL (0.0-0.2); Basophils Percent Auto 0.7 % (0-2); Eosinophils Absolute Auto 0.2 X10*3/uL (0.0-0.4); Eosinophils Percent Auto 2.5 % (0-4); Hematocrit 40.1 % (37.0-47.0); Hemoglobin 13.4 g/dl (12.0-16.0); Imm Gran Abs Auto 0.01 X10*3/uL (0.00-0.03); Imm Gran Pct Auto 0.1 % (0.0-0.4); Lymphocytes Absolute Auto 1.3 X10*3/uL (1.2-4.9); Lymphocytes Percent Auto 18.8 % (20-40); Mean Corpuscular HGB Conc 33.4 g/dl (31.0-35.0); Mean Corpuscular Hemoglobin 29.8 pg (27.0-33.0); Mean Corpuscular Volume 89.3 fL (80.0-98.0); Mean Platelet Volume 10.7 fL (9.4-12.3); Monocytes Absolute Auto 0.6 X10*3/uL (0.1-1.2); Monocytes Percent Auto 8.8 % (2-11); Neutrophils Absolute Auto 4.8 x10*3/uL (2.0-8.3); Neutrophils Percent Auto 69.1 % (45-73); Platelet Count 221 X10*3/uL (160-400); Red Blood Count 4.49 X10*6/uL (4.20-5.50); Red Cell Distribution Width 12.8 % (11.0-16.0); White Blood Count 6.9 X10*3/uL (4.8-10.8)
[2023-06-28 14:37] LABS: Alanine Aminotransferase 17 U/L (0-31); Albumin Level 4.4 g/dL (3.5-5.0); Alkaline Phosphatase 38 U/L (39-117); Anion Gap 13 (12-20); Aspartate Amino Transferase 20 U/L (5-31); Bilirubin Total 0.5 mg/dL (0.0-1.0); Blood Urea Nitrogen 15 mg/dL (9-16); Calcium 9.8 mg/dL (8.4-10.2); Carbon Dioxide 26 mmol/L (22-29); Chloride 106 mmol/L (96-108); Creatinine Clr Calc Pharmacy 105.3; Estimated Glomerular Filt Rate > 60; Glucose Random 80 mg/dL (60-115); Lipase 22 U/L (8-78); Potassium 3.8 mmol/L (3.3-5.1); Sodium 141 mmol/L (135-145); Total Protein 7.5 g/dL (6.5-8.0)
[2023-06-28 14:47] LABS: Troponin-I High Sensitivity < 2.7 ng/L (<3.5-17.0)
[2023-06-28 16:43] VITALS: BP 113/51; PULSE 55; RESP 18; TEMP 36.6; O2SAT 100
[2023-06-28 17:53] VITALS: BP 122/58; PULSE 58; RESP 16; TEMP 36.8; O2SAT 98
[2023-06-28 18:23] LABS: Appearance Urine Clear; Color Urine Dark Yellow; Glucose Urine UA Negative (Negative); Leukocyte Esterase Urine Negative (Negative); Nitrite Urine Negative (Negative); PH 5.5 (5.0-9.0); Specific Gravity - Urine >= 1.030 (1.005-1.025); Urine Blood Negative (Negative); Urine Ketones 80 mg/dL (Negative); Urine Protein Trace mg/dL (Neg-Trace)
[2023-06-28] MEDS: Famotidine/PF 20 MG/2 ML VIAL IVPUSH (18:23)
[2023-06-28] MEDS: 0.9 % Sodium Chloride 1,000 ML 999 ML IV (18:23)
[2023-06-28 18:26] LABS: OBS Int Ctl Valid YES; OBS1 NEGATIVE (NEGATIVE)
[2023-06-28] MEDS: Lidocaine HCl Viscous 2 % 15 ML SOLUTION MUCOUS MEM (18:26)
[2023-06-28] MEDS: Magnesium Hydrox/Alum Hydrox 30 ML ORAL.SUSP PO (18:26)
[2023-06-28 18:40] LABS: UPreg QC Valid YES; Urine Pregnancy NEGATIVE (NEGATIVE)
[2023-06-28 19:44] VITALS: BP 127/63; PULSE 56; RESP 16; TEMP 37.2; O2SAT 98
== END 2023-06-28 20:23 | disposition home or self-care (01) ==
PROVIDERS: Nurse Practitioner Family; Emergency Provider Emergency Medicine Emergency Medical Services; PCP Internal Medicine
DX: K29.70 Gastritis, unspecified, without bleeding (principal); R11.2 Nausea with vomiting, unspecified; R07.89 Other chest pain; Z79.899 Other long term (current) drug therapy
CPT/HCPCS: 36415; 71046; 80053; 81003; 81025; 82272; 83690; 84484; 85025; 93005; 96361; 96374; 99284

== ENCOUNTER 2023-07-16 08:14 | Outpatient (AMB) | payer OTHER, SELFPAY ==
--- NOTE | 2023-07-16 08:20 | AM.OFFVISNUR ---
Intake Intake Visit Reasons: hep b Allergies amoxicillin [From AUGMENTIN] Allergy (Unknown, Verified 06/28/23 13:31) HIVES bee pollen [Bee Stings] Allergy (Unknown, Verified 06/28/23 13:31) SWELLING cephalexin [CEPHALEXIN] Allergy (Unknown, Verified 06/28/23 13:31) HIVES clavulanic acid [From AUGMENTIN] Allergy (Unknown, Verified 06/28/23 13:31) HIVES Immunizations Recombivax HB (PF) 10 mcg/mL intramuscular suspension Performing Provider: Tom Lucero MD [facility] Administered by: Park Colmenares RN on 07/16/23 08:31 Dose Route Admin Location Dispensed Lot Number Expiration Date [facility] 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
== END 2023-07-16 08:35 | disposition home or self-care (01) ==
PROVIDERS: PCP Internal Medicine; Visit Provider Internal Medicine
DX: Z23 Encounter for immunization (principal)
CPT/HCPCS: 90471; 90746

== ENCOUNTER 2023-09-09 14:41 | Outpatient (AMB) | payer OTHER, SELFPAY ==
[2023-09-09 14:42] VITALS: BP 118/76; PULSE 77; O2SAT 99; BMI 31.8
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
== END 2023-09-09 15:26 | disposition home or self-care (01) ==
PROVIDERS: PCP Internal Medicine; Visit Provider Internal Medicine
DX: Z00.00 Encounter for general adult medical examination without abnormal findings (principal); F33.9 Major depressive disorder, recurrent, unspecified; K11.5 Sialolithiasis; K21.9 Gastro-esophageal reflux disease without esophagitis; K59.00 Constipation, unspecified; G43.909 Migraine, unspecified, not intractable, without status migrainosus; G93.2 Benign intracranial hypertension; Z68.31 Body mass index [BMI] 31.0-31.9, adult; E66.9 Obesity, unspecified; T30.0 Burn of unspecified body region, unspecified degree; G47.00 Insomnia, unspecified; F41.9 Anxiety disorder, unspecified
CPT/HCPCS: 99395

== ENCOUNTER 2023-12-07 12:44 | Outpatient (AMB) | payer OTHER, SELFPAY ==
[2023-12-07 12:48] VITALS: BP 100/78; PULSE 55; O2SAT 99; BMI 33.0
--- NOTE | 2023-12-07 12:48 | A.OFFPC_ITS ---
Vital Signs 12/07/23 12:48 Height 5 ft 3 in Weight 186 lb 4 oz BMI 33.0 BP 100/78 Blood Pressure Location Lt brachial Position Sitting Pulse 55 Pulse Source Pulse Oximeter Pulse Oximetry (%) 99 Oxygen Delivery Method Room Air Intake Visit Reasons: [facility]/ [facility] Mri Technologist Required: No Accompanied by: Self / Same As Patient Allergies amoxicillin [From AUGMENTIN] Allergy (Unknown, Verified 03/02/25 11:12) HIVES bee pollen [Bee Stings] Allergy (Unknown, Verified 03/02/25 11:12) SWELLING cephalexin [CEPHALEXIN] Allergy (Unknown, Verified 03/02/25 11:12) HIVES clavulanic acid [From AUGMENTIN] Allergy (Unknown, Verified 03/02/25 11:12) HIVES Medication List - Last Reconciled 12/07/23 by Tom Lucero MD lamotrigine 25 mg PO DAILY lurasidone 40 mg PO DAILY pantoprazole 40 mg PO DAILY 90 days polyethylene glycol 3350 (Miralax) 17 grams PO DAILY 30 days quetiapine 1/2 to 1 tablet orally 2 times a day PRN; silver sulfadiazine 1% (Silvadene) 1 appl topical TID trazodone 50 mg PO BEDTIME PRN Tobacco use date assessed: 12/07/23 Dental Screening Dental Screen Date: 12/07/23 Did you have a dental visit in the last 12 months?: No Did you have a dental problem in the last 6 months where you did not have access to dental care?: No Was dental information given to patient?: No HPI [facility]/ [facility] HPI Details Patient comes in today for her [facility] follow up visit She was admitted to in-patient psychiatry for about a week at the beginning of the month following a suicide attempt, wherein she took about 20 tablets of Aleve She was brought to the ER at [facility] following her intentional overdose, where her work ups came out okay Patient states that she felt that her life was spiraling out of control and she is just tired of dealing with everything but she feels okay now and has no further intention of self-harm at present States that she currently feels okay and denies any headaches or dizziness Denies any chest pains, no SOB No nausea/vomiting but reports that she has been experiencing on and off epigastric pains lately - states that she is taking her Omeprazole daily but does not feel like it is helping Will try switching her over to Pantoprazole to see if this will help her better No change in bowel habits noted She is also asking for STD testing again today [facility] Medical History Hematoma of left thigh Genetic testing Insomnia Major depression, recurrent GERD without esophagitis Obesity (BMI 30-39.9) Pseudotumor cerebri Migraine Anxiety Skin abscess Surgical History Hx of gastric bypass (~11/30/18) Family History Mother Cervical cancer Family history of stomach cancer Substance use disorder Other Mental health disorder Social History Household Members: Spouse and Children Housing: House Alcohol intake: current Alcohol intake frequency: holidays/special occasions only Patient Tobacco Use Status: Never used Tobacco e-Cigarette/Vaping Use: Never Used Second Hand Smoke Exposure: No Substance Use Type: Marijuana service: No Current occupational status: employed 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 1. Little interest or pleasure in doing things: several days 2. Feeling down, depressed, or hopeless: several days 3. Trouble falling or staying asleep, or sleeping too much: several days 4. Feeling tired or having little energy: several days 5. Poor appetite or overeating: several days 6. Feeling bad about yourself - or that you are a failure or have let yourself or your family down: several days 7. Trouble concentrating on things, such as reading the newspaper or watching television: several days 8. Moving or speaking so slowly that other people could have noticed. Or the opposite - being so fidgety or restless that you have been moving around a lot more than usual: several days 9. Thoughts that you would be better off or of hurting yourself in some way: not at all Total score: 8 Depression Screening Interpretation: Positive Depression Screening Follow-up: Existing condition, In treatment and Follow-up Visit Requested Depression Screening Done: Yes [id number] - PHQ-9 Billing: Yes Source: Developed by Drs. Lester Martinez, Janis Grace, Jaspreet Harding and colleagues, with an educational jersey from [employer]. Thrive Questionnaire Date Thrive assessed: 12/07/23 I am a: Patient What is your living situation today?: I have a steady place to live Within the past 12 months, did the food you bought not last and you didn't have the money to get more?: Never true Within the past 12 months, did you worry whether your food would run out before you got money to buy more?: Never true Do you have trouble paying for medicines?: No Do you have trouble getting transportation to medical appointments?: No Do you have trouble paying your heating and electricity bill?: No Do you have trouble taking care of your child, family member or friend?: No Do you have trouble with day-to-day activities such as bathing, preparing meals, shopping, managing finances, etc.?: No Are you currently unemployed and looking for a job?: No Are you interested in more education?: No Please select the resources that you would like help with: None Currently or been in a relationship where the following occur: no concerns reported THRIVE Score: 0 AUDIT C Alcohol Use Questionnaire (AUDIT-C) 1. How often do you have a drink containing alcohol?: Monthly or less 2. How many drinks containing alcohol do you have on a typical day when you are drinking?: 1 or 2 3. How often do you have six or more drinks on one occasion?: Never Total Score: 1 Score Reviewed/Action Taken: Yes JOVANNA-7 AMB Questionnaire JOVANNA-7 Date JOVANNA - 7 assessed: 12/07/23 Feeling nervous, anxious, or on edge: 3 = Nearly every day Not being able to stop or control worryin = Nearly every day Worrying too much about different things: 3 = Nearly every day Trouble relaxin = Nearly every day Being so restless that it is hard to sit still: 3 = Nearly every day Becoming easily annoyed or irritable: 3 = Nearly every day Feeling afraid as if something awful might happen: 3 = Nearly every day Total JOVANNA-7 score (0-4 normal; 5-9 mild; 10-14 moderate; 15-21 severe): 21 Source: Developed by Drs. Lester Martinez, Janis Grace, Jaspreet Harding and colleagues, with an educational jersey from [employer]. Review of Systems Const Denies chills, Reports fatigue, Denies fever(s) and Denies headache(s) ENT Denies dysphagia, Denies dizziness, Denies otalgia, Denies headache(s), Denies neck pain, Denies odynophagia and Denies sore throat Card Denies chest pain, Denies irregular heart rhythm, Denies palpitations and Denies dyspnea Resp Denies chest congestion, Denies cough and Denies dyspnea GI Reports abdominal pain (on and off, over the epigastric area), Reports constipation (alternating with diarrhea), Denies dysphagia, Denies heartburn, Reports diarrhea (alternating with constipation), Denies nausea, Denies odynophagia and Denies vomiting Denies difficulty voiding, Denies dysuria and Denies urinary urgency Musc Denies back pain and Denies neck pain Skin/Breast Denies pruritus and Denies rash Neuro Denies dizziness, Denies headache(s) and Denies paresthesias Psych Reports anxiety, Reports depression and Denies suicidal ideation Endo Reports fatigue and Denies palpitations Clifton/Lymph Denies easy bruising Physical exam (Primary Care) Vital Signs: Last Vital Signs Pulse 55 12/07/23 12:48 BP 100/78 12/07/23 12:48 Pulse Ox 99 12/07/23 12:48 Oxygen Delivery Method Room Air 12/07/23 12:48 BMI result Body Mass Index 33.0 Tobacco/Smoking Status: Tobacco use Status Tobacco use date assessed 12/07/23 12/07/23 12:50 Patient Tobacco Use Status Never used Tobacco 12/07/23 12:50 e-Cigarette/Vaping Use Never Used 12/07/23 12:50 PHQ-9: PHQ-9 Score PHQ-9: Total score 8 12/07/23 13:25 Depression Screening Interpretation: Positive Depression Screening Follow-up: Existing condition, In treatment and Follow-up Visit Requested Thrive Assessment: Date of Thrive Assessment Date Thrive assessed 12/07/23 12/07/23 12:50 Currently or been in a relationship where the following occur: no concerns reported Const General: no acute distress and alert HENMT Ears: TM's normal bilaterally and EAC's normal Throat: Yes posterior oropharynx normal and Yes tonsils normal (no TP congestion) Neck Neck: Yes supple and No lymphadenopathy Thyroid: Thyroid normal Resp Auscultation: clear to auscultation bilaterally, no crackles, no rales and no wheezes Cardio Rate: regular rate Rhythm: regular rhythm Heart sounds: no murmurs GI Palpation (GI): Soft to palpation, Tenderness to palpation present (GI) (mild) in the epigastrum, no guarding and No Rebound tenderness present Auscultation: normal bowel sounds General: Yes no CVA tenderness Back/Spine/Pelvis Back: no CVA tenderness Thoracic/Lumbar Spine: No lumbar spinal tenderness Skin Rashes: no rashes Extrem General: Yes no clubbing, cyanosis or edema Coding Level of Care Code Est Pt Level 4 (61330) Diagnoses Suicide attempt by drug overdose T50.902A Epigastric pain R10.13 Sialolithiasis K11.5 Constipation, unspecified constipation type K59.00 Constipation type: unspecified constipation type Migraine without status migrainosus, not intractable, unspecified migraine type G43.909 Migraine type: unspecified Status migrainosus presence: without status migrainosus Intractability: not intractable Pseudotumor cerebri G93.2 Insomnia, unspecified type G47.00 Insomnia type: unspecified Anxiety F41.9 Episode of recurrent major depressive disorder, unspecified depression episode severity F33.9 Active/Remission status: currently active Major depression episode severity: unspecified Obesity (BMI 30-39.9) E66.9 Possible exposure to STD Z20.2
== END 2023-12-07 13:28 | disposition home or self-care (01) ==
PROVIDERS: PCP Internal Medicine; Visit Provider Internal Medicine
DX: T50.902A Poisoning by unspecified drugs, medicaments and biological substances, intentional self-harm, initial encounter (principal); R10.13 Epigastric pain; K11.5 Sialolithiasis; K59.00 Constipation, unspecified; G43.909 Migraine, unspecified, not intractable, without status migrainosus; G93.2 Benign intracranial hypertension; G47.00 Insomnia, unspecified; F41.9 Anxiety disorder, unspecified; F33.9 Major depressive disorder, recurrent, unspecified; E66.9 Obesity, unspecified; Z20.2 Contact with and (suspected) exposure to infections with a predominantly sexual mode of transmission
CPT/HCPCS: 99499

== ENCOUNTER 2023-12-07 13:32 | Outpatient (REF) | payer OTHER, SELFPAY ==
[2023-12-07 13:44] LABS: MANUAL DIFF FLAG NO
[2023-12-07 13:52] LABS: Basophils Absolute Auto 0.1 X10*3/uL (0.0-0.2); Basophils Percent Auto 0.8 % (0-2); Eosinophils Absolute Auto 0.2 X10*3/uL (0.0-0.4); Eosinophils Percent Auto 2.4 % (0-4); Hematocrit 39.5 % (37.0-47.0); Hemoglobin 12.9 g/dl (12.0-16.0); Imm Gran Abs Auto 0.02 X10*3/uL (0.00-0.03); Imm Gran Pct Auto 0.3 % (0.0-0.4); Lymphocytes Absolute Auto 1.6 X10*3/uL (1.2-4.9); Lymphocytes Percent Auto 24.5 % (20-40); Mean Corpuscular HGB Conc 32.7 g/dl (31.0-35.0); Mean Corpuscular Hemoglobin 30.1 pg (27.0-33.0); Mean Corpuscular Volume 92.3 fL (80.0-98.0); Mean Platelet Volume 10.5 fL (9.4-12.3); Monocytes Absolute Auto 0.7 X10*3/uL (0.1-1.2); Neutrophils Absolute Auto 4.1 x10*3/uL (2.0-8.3); Platelet Count 234 X10*3/uL (160-400); Red Blood Count 4.28 X10*6/uL (4.20-5.50); Red Cell Distribution Width 13.2 % (11.0-16.0); White Blood Count 6.7 X10*3/uL (4.8-10.8)
[2023-12-07 14:09] LABS: Estimated Average Glucose 97 mg/dL
[2023-12-07 14:15] LABS: Alanine Aminotransferase 16 U/L (0-31); Albumin Level 4.3 g/dL (3.5-5.0); Alkaline Phosphatase 40 U/L (39-117); Anion Gap 10 (12-20); Aspartate Amino Transferase 20 U/L (5-31); Bilirubin Total 0.4 mg/dL (0.0-1.0); Blood Urea Nitrogen 9 mg/dL (9-16); Calcium 9.2 mg/dL (8.4-10.2); Carbon Dioxide 27 mmol/L (22-29); Chloride 105 mmol/L (96-108); Cholesterol 168 mg/dL (<200); Estimated Glomerular Filt Rate > 60; Glucose Fasting 93 mg/dL (60-99); HDL Cholesterol 70 mg/dL (>40); LDL Cholesterol Calculated 91 mg/dL (<100); Potassium 4.8 mmol/L (3.3-5.1); Sodium 137 mmol/L (135-145); Total Protein 7.7 g/dL (6.5-8.0); Triglycerides 39 mg/dL (<150)
[2023-12-07 14:31] LABS: TSH reflex Free T4 0.45 uIU/mL (0.32-4.0); Vitamin D 25-OH Total 22.9 ng/mL (>30)
[2023-12-07 14:46] LABS: Appearance Urine Clear; Color Urine Yellow; Glucose Urine UA Negative (Negative); Leukocyte Esterase Urine Small (1+) (Negative); Nitrite Urine Negative (Negative); PH 7.5 (5.0-9.0); UMIC TRIGGER UACC YES; Urine Blood Negative (Negative); Urine Ketones Negative (Negative); Urine Protein Negative (Neg-Trace)
[2023-12-07 14:56] LABS: Bacteria Urine None Seen (None Seen); Hyaline Casts Urine 0-2 /LPF (0-2); RBC Urine 0-2 /HPF (0-2); UACC Culture Trigger YES; WBC Urine 0-5 /HPF (0-5)
[2023-12-07 16:15] LABS: CT PCR NOT DETECTED (Not Detect.); NG PCR NOT DETECTED (Not Detect.)
[2023-12-08 03:02] LABS: Syphilis Screen Nonreactive (Nonreactive)
[2023-12-08 03:30] LABS: HBS Num1 276.33 mIU/mL (0-7.99); HBc Num1 0.09 S/CO (0.00-0.79); HBsAGNum1 0.39 S/CO (0.00-0.99); HIV AB/AG Nonreactive (Nonreactive); HIV Num 1 0.07 S/CO (0.00-0.99); Hepatitis B Core Antibody Nonreactive (Nonreactive); Hepatitis B Surface Antigen Negative (Negative); ~HepC Num1 0.11 S/CO (0.00-0.79); ~Hepatitis B Surface Antibody REACTIVE (Nonreactive); ~Hepatitis C Antibody Nonreactive (Nonreactive)
== END 2023-12-07 13:33 | disposition home or self-care (01) ==
LOC: HO.LAB 13:32
PROVIDERS: PCP Internal Medicine; Visit Provider Internal Medicine
DX: Z00.00 Encounter for general adult medical examination without abnormal findings (principal); D64.9 Anemia, unspecified; R73.9 Hyperglycemia, unspecified; E78.00 Pure hypercholesterolemia, unspecified; E55.9 Vitamin D deficiency, unspecified; Z20.2 Contact with and (suspected) exposure to infections with a predominantly sexual mode of transmission
CPT/HCPCS: 0353U; 80053; 80061; 81001; 82306; 83036; 84443; 85025; 86704; 86706; 86780; 86803; 87086; 87340; 87389

== ENCOUNTER 2024-01-13 08:28 | Outpatient (AMB) | payer OTHER, SELFPAY ==
--- NOTE | 2024-01-13 08:31 | AM.OFFVISNUR ---
Intake Intake Visit Reasons: Hep-B vaccine Allergies amoxicillin [From AUGMENTIN] Allergy (Unknown, Verified 12/07/23 13:26) HIVES bee pollen [Bee Stings] Allergy (Unknown, Verified 12/07/23 13:26) SWELLING cephalexin [CEPHALEXIN] Allergy (Unknown, Verified 12/07/23 13:26) HIVES clavulanic acid [From AUGMENTIN] Allergy (Unknown, Verified 12/07/23 13:26) HIVES Immunizations Engerix-B (PF) 20 mcg/mL intramuscular suspension Performing Provider: Tom Lucero MD Performing Location: [facility] Administered by: Roxane Pruitt CMA on 01/13/24 08:32 Dose Route Admin Location Dispensed Lot Number Expiration Date [facility] [address] [place] 1 mL IM Left Deltoid 1 mL [id number] 03/06/25 40798-531-42 [employer] VIS Given Date VIS Provided VIS Publication Date 01/13/24 Single Vaccine 23 Eligibility Eligibility Date Funding Source Not [facility] Eligible 01/13/24 Private Coding Assessment & Plan Assessment & Plan Orders: Orders Hepatitis B Adult Immunization Today Z23 - Encounter for immunization
== END 2024-01-13 08:39 | disposition home or self-care (01) ==
PROVIDERS: PCP Internal Medicine; Visit Provider Internal Medicine
DX: Z23 Encounter for immunization (principal)
CPT/HCPCS: 90471; 90746

== ENCOUNTER 2024-01-13 11:33 | Outpatient (REF) | payer OTHER, SELFPAY ==
[2024-01-13 14:28] LABS: Appearance Urine Clear; Color Urine Yellow; Glucose Urine UA Negative (Negative); Leukocyte Esterase Urine Negative (Negative); Nitrite Urine Negative (Negative); Urine Blood Negative (Negative); Urine Ketones Negative (Negative); Urine Protein Negative (Neg-Trace)
[2024-01-14 07:08] LABS: Syphilis Screen Nonreactive (Nonreactive)
[2024-01-14 07:17] LABS: HBS Num1 210.71 mIU/mL (0-7.99); HBc Num1 0.08 S/CO (0.00-0.79); HIV AB/AG Nonreactive (Nonreactive); HIV Num 1 0.05 S/CO (0.00-0.99); Hepatitis B Core Antibody Nonreactive (Nonreactive); Hepatitis B Surface Antigen Negative (Negative); ~HepC Num1 0.14 S/CO (0.00-0.79); ~Hepatitis B Surface Antibody REACTIVE (Nonreactive); ~Hepatitis C Antibody Nonreactive (Nonreactive)
== END 2024-01-13 11:34 | disposition home or self-care (01) ==
LOC: HO.LAB 11:33
PROVIDERS: Visit Provider Internal Medicine
DX: Z11.4 Encounter for screening for human immunodeficiency virus [HIV] (principal); R30.0 Dysuria; Z20.2 Contact with and (suspected) exposure to infections with a predominantly sexual mode of transmission
CPT/HCPCS: 36415; 81003; 86704; 86706; 86780; 86803; 87340; 87389

== ENCOUNTER 2024-01-22 08:46 | Outpatient (AMB) | payer OTHER, SELFPAY ==
--- NOTE | 2024-01-22 08:49 | MHC.OFFVIS ---
Intake Vital Signs 01/22/24 08:50 Height 5 ft 3 in Weight 190 lb BMI 33.7 BP 122/76 Intake Visit Reasons: Annual Intake Note: no concerns Md Physician Dermatologist Required: No Information Interpreted: non-clinical & clinical Recycling Director: Recycling Director Present (Licha Navarro PUJA) Accompanied by: Self / Same As Patient Allergies amoxicillin [From AUGMENTIN] Allergy (Unknown, Verified 01/22/24 08:57) HIVES bee pollen [Bee Stings] Allergy (Unknown, Verified 01/22/24 08:57) SWELLING cephalexin [CEPHALEXIN] Allergy (Unknown, Verified 01/22/24 08:57) HIVES clavulanic acid [From AUGMENTIN] Allergy (Unknown, Verified 01/22/24 08:57) HIVES Is last menstrual period known: Yes Last menstrual period: 01/15/24 HPI HPI Comments History of Present Illness Details She is a premenopausal woman presenting for annual examination. Doing well with no concerns. She tries to eat healthy and stays active with exercise. Regular monthly menses. Currently is sexually active currently female only partner.. She denies vaginal itching and irritation. STI screening offered; she accepts. Had recent testing at [facility] and was treated for mycoplasma with doxycycline. Denies family history of breast, ovarian or colon cancer. Last pap smear 2019, negative. [facility] Medical History (Updated 01/22/24 @ 09:58 by Aurora Lutz CNM) Genetic testing Insomnia Major depression, recurrent GERD without esophagitis Obesity (BMI 30-39.9) Pseudotumor cerebri Migraine Anxiety Skin abscess Surgical History Hx of gastric bypass (~11/30/18) Family History Mother Cervical cancer Family history of stomach cancer Substance use disorder Other Mental health disorder Social History (Updated 01/22/24 @ 10:05 by Aurora Lutz CNM) Household Members: Spouse and Children Housing: House Alcohol intake: never Patient Tobacco Use Status: Never used Tobacco e-Cigarette/Vaping Use: Never Used Second Hand Smoke Exposure: No Substance Use Type: Marijuana service: No Current occupational status: employed 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[employer], 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 Sexual orientation: Bisexual Gender identity: Female Cognitive needs: No Hearing needs: No Vision needs: No Female Reproductive History Menstrual Age of Menarche: 11 Duration of menses: 6-7 days Date of last menstrual period: 01/15/24 Total pregnancies: 7 Full term: 3 Number of Living Children: 3 Ab induced: 2 Ab spontaneous: 2 Date of last pap smear: 07/26/20 Review of Systems Const All systems reviewed & are unremarkable except as noted in HPI and below Reports as per HPI Eyes Reports no additional complaints ENT Reports no additional complaints Card Reports no additional complaints Resp Reports no additional complaints GI Reports as per HPI and Reports no additional complaints Reports as per HPI Musc Reports no additional complaints Skin/Breast Reports as per HPI Neuro Reports no additional complaints Psych Reports no additional complaints Endo Reports no additional complaints Clifton/Lymph Reports no additional complaints Aller/Immun Reports no additional complaints Physical Exam Vital Signs: Last Vital Signs BP 122/76 01/22/24 08:50 BMI result Body Mass Index 33.7 Const General: cooperative, healthy appearing, no acute distress, well developed and alert Orientation/consciousness: patient oriented x3 HEENT Head: Yes normal to inspection Eyes General: appearance normal, both eyes and all related structures Neck Neck: Yes normal visual inspection Thyroid: Thyroid normal Chest Chest palpation & inspection: normal inspection of the chest and other (no puckering, dimpling, peau de orange, retraction, discharge, masses) Breast/axilla inspection: normal inspection of the breasts Breast/axilla palpation: normal palpation of the breasts Resp Effort & Inspection: normal respiratory effort GI Inspection: Yes normal to inspection Palpation (GI): Soft to palpation Rectal Exam - Female: deferred General: Yes bladder normal to palpation External Female Exam: normal external appearance and normal appearance of the urethra Speculum Exam - Vagina: normal appearance of the vagina, normal palpation and normal vaginal discharge Speculum Exam - Cervix: normal appearance of the cervix and normal palpation Bimanual exam- vagina & uterus: normal bimanual exam, normal palpation, uterine size normal, bladder normal to palpation, normal palpation and non-tender Bimanual Exam- Adnexa, other: no masses Skin General skin exam: no rashes or lesions noted Rashes: no rashes Neuro General: patient oriented x3 Cognition (Neuro): normal cognition Extrem General: Yes normal to inspection Psych Attitude: cooperative Thought process: Normal thought process present Assessment & Plan Assessment & Plan (1) Well woman exam with routine gynecological exam: Code(s): Z01.419 - Encounter for gynecological examination (general) (routine) without abnormal findings Plan: Discussed: Current recommendations for pap smears per ASCCP guidelines. Breast awareness and periodic breast exams. Maintain a healthy lifestyle including a well balanced diet and routine exercise. Use condoms for STI and prevention if indicated. Patient verbalizes understanding and agrees to the plan of care. She was given opportunity to ask questions and all questions were answered to the best of my ability. 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 This note is constructed using voice recognition software. While every effort has been made to ensure accuracy, director of housing and energy services errors may have been included. Orders: Orders Pap Smear Today Z01.419 - Encounter for gynecological examination (general) (routine) without abnormal findings Coding Level of Care Code Est Pt Prev Care 18-39y(43787) Diagnoses Well woman exam with routine gynecological exam Z01.419
[2024-01-22 08:50] VITALS: BP 122/76; BMI 33.7
== END 2024-01-22 09:23 | disposition home or self-care (01) ==
PROVIDERS: PCP Internal Medicine; Visit Provider Advanced Practice Midwife
DX: Z01.419 Encounter for gynecological examination (general) (routine) without abnormal findings (principal)
CPT/HCPCS: 99395

== ENCOUNTER 2024-01-22 08:46 | Outpatient (REF) | payer OTHER, SELFPAY ==
[2024-01-28 04:34] LABS: HPV mRNA E6/E7 rflx Not Detected (Not Detected)
== END 2024-01-22 08:47 | disposition home or self-care (01) ==
LOC: HO.LNP 08:46
PROVIDERS: Obstetrics & Gynecology; PCP Internal Medicine; Visit Provider Advanced Practice Midwife
DX: Z01.419 Encounter for gynecological examination (general) (routine) without abnormal findings (principal)
CPT/HCPCS: 87624; 88142; 99395

== ENCOUNTER 2024-06-29 12:26 | Outpatient (REF) | payer OTHER, SELFPAY ==
[2024-06-29 14:26] LABS: Appearance Urine Cloudy; Color Urine Yellow; Glucose Urine UA Negative (Negative); Leukocyte Esterase Urine Negative (Negative); Nitrite Urine Negative (Negative); Urine Blood Negative (Negative); Urine Ketones Negative (Negative); Urine Protein Negative (Neg-Trace)
[2024-06-30 04:34] LABS: Syphilis Screen Nonreactive (Nonreactive)
[2024-06-30 05:03] LABS: HIV AB/AG Nonreactive (Nonreactive); HIV Num 1 0.04 S/CO (0.00-0.99)
== END 2024-06-29 12:27 | disposition home or self-care (01) ==
LOC: HO.LAB 12:26
PROVIDERS: PCP Internal Medicine; Visit Provider Internal Medicine
DX: Z20.2 Contact with and (suspected) exposure to infections with a predominantly sexual mode of transmission (principal); R31.9 Hematuria, unspecified
CPT/HCPCS: 36415; 81003; 86780; 87389

== ENCOUNTER 2024-10-13 14:13 | Outpatient (REF) | payer OTHER, SELFPAY ==
[2024-10-14 08:04] LABS: Syphilis Screen Nonreactive (Nonreactive)
[2024-10-14 08:21] LABS: HBS Num1 > 1000.00 mIU/mL (0-7.99); HBsAGNum1 0.34 S/CO (0.00-0.99); HIV AB/AG Nonreactive (Nonreactive); HIV Num 1 0.06 S/CO (0.00-0.99); Hepatitis B Core Antibody Nonreactive (Nonreactive); Hepatitis B Surface Antigen Negative (Negative); ~HepC Num1 0.08 S/CO (0.00-0.79); ~Hepatitis B Surface Antibody REACTIVE (Nonreactive); ~Hepatitis C Antibody Nonreactive (Nonreactive)
== END 2024-10-13 14:14 | disposition home or self-care (01) ==
LOC: HO.LAB 14:13
PROVIDERS: PCP Internal Medicine; Visit Provider Internal Medicine
DX: Z20.2 Contact with and (suspected) exposure to infections with a predominantly sexual mode of transmission (principal)
CPT/HCPCS: 36415; 86704; 86706; 86780; 86803; 87340; 87389

== ENCOUNTER 2024-10-30 10:47 | Emergency (ER) | payer OTHER, SELFPAY ==
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
[2024-10-30 11:26] VITALS: BP 114/61; PULSE 83; RESP 18; TEMP 36.6; O2SAT 96; BMI 33.1
[2024-10-30 12:18] LABS: Basophils Absolute Auto 0.1 X10*3/uL (0.0-0.2); Eosinophils Absolute Auto 0.1 X10*3/uL (0.0-0.4); Eosinophils Percent Auto 1.5 % (0-4); Hematocrit 37.6 % (37.0-47.0); Hemoglobin 12.5 g/dl (12.0-16.0); Imm Gran Abs Auto 0.03 X10*3/uL (0.00-0.03); Imm Gran Pct Auto 0.4 % (0.0-0.4); Lymphocytes Absolute Auto 1.9 X10*3/uL (1.2-4.9); Lymphocytes Percent Auto 24.3 % (20-40); MANUAL DIFF FLAG NO; Mean Corpuscular HGB Conc 33.2 g/dl (31.0-35.0); Mean Corpuscular Hemoglobin 28.9 pg (27.0-33.0); Mean Corpuscular Volume 86.8 fL (80.0-98.0); Mean Platelet Volume 10.7 fL (9.4-12.3); Monocytes Absolute Auto 0.8 X10*3/uL (0.1-1.2); Monocytes Percent Auto 10.5 % (2-11); Neutrophils Percent Auto 62.3 % (45-73); Platelet Count 208 X10*3/uL (160-400); Red Blood Count 4.33 X10*6/uL (4.20-5.50); Red Cell Distribution Width 14.7 % (11.0-16.0)
[2024-10-30 12:43] LABS: Alanine Aminotransferase 21 U/L (0-31); Albumin Level 4.1 g/dL (3.5-5.0); Alkaline Phosphatase 34 U/L (39-117); Anion Gap 9 (12-20); Aspartate Amino Transferase 35 U/L (5-31); Bilirubin Total 0.4 mg/dL (0.0-1.0); Blood Urea Nitrogen 6 mg/dL (9-16); Calcium 8.9 mg/dL (8.4-10.2); Carbon Dioxide 28 mmol/L (22-29); Chloride 110 mmol/L (96-108); Creatinine Clr Calc Pharmacy 107.8; Estimated Glomerular Filt Rate > 60; Glucose Random 92 mg/dL (60-115); HCG Quantitative < 2 mIU/mL; Potassium 4.5 mmol/L (3.3-5.1); Sodium 142 mmol/L (135-145)
[2024-10-30] MEDS: Cyclobenzaprine HCl 5 MG TABLET PO (15:42)
[2024-10-30] MEDS: Ketorolac Tromethamine 30 MG/ML VIAL IM (15:42)
[2024-10-30 16:00] VITALS: BP 120/77; PULSE 76; RESP 18; TEMP 36.8; O2SAT 97
[2024-10-30] MEDS: iohexoL 350 MG/ML 100 ML INFUS..BTL IV (16:35)
[2024-10-30 18:00] VITALS: BP 123/70; PULSE 81; RESP 18; O2SAT 98
[2024-10-30 18:38] VITALS: BP 123/70; PULSE 81; RESP 18; TEMP -17.7; TEMP 0; O2SAT 98
== END 2024-10-30 18:39 | disposition home or self-care (01) ==
PROVIDERS: Nurse Practitioner Family; Emergency Provider Emergency Medicine; PCP Internal Medicine
DX: S06.0X0A Concussion without loss of consciousness, initial encounter (principal); S70.12XA Contusion of left thigh, initial encounter; R51.9 Headache, unspecified; M25.552 Pain in left hip; M79.604 Pain in right leg; M79.601 Pain in right arm; M79.605 Pain in left leg; V47.5XXA Car driver injured in collision with fixed or stationary object in traffic accident, initial encounter; Y93.89 Activity, other specified; Y92.488 Other paved roadways as the place of occurrence of the external cause; Y99.8 Other external cause status; Z79.899 Other long term (current) drug therapy
CPT/HCPCS: 36415; 70450; 72125; 73060; 73090; 73502; 73701; 80053; 84702; 85025; 96372; 99284; J1885; Q9967

== ENCOUNTER → 2024-10-30 11:31 | Outpatient (BNV) | payer OTHER, SELFPAY | PROVIDERS: PCP Internal Medicine; Visit Provider Radiology Diagnostic Radiology | DX: S70.12XA Contusion of left thigh, initial encounter (principal); S09.90XA Unspecified injury of head, initial encounter; M25.552 Pain in left hip; M79.601 Pain in right arm; M25.511 Pain in right shoulder | CPT/HCPCS: 70450; 72125; 73060; 73090; 73502; 73701 ==

== ENCOUNTER 2024-11-07 13:20 | Outpatient (AMB) | payer OTHER, SELFPAY ==
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
[2024-11-07 13:33] VITALS: BP 120/80; PULSE 72; TEMP 36.2; O2SAT 98; BMI 32.5
== END 2024-11-07 14:22 | disposition home or self-care (01) ==
PROVIDERS: PCP Internal Medicine; Visit Provider Internal Medicine
DX: S40.021A Contusion of right upper arm, initial encounter (principal); S70.12XA Contusion of left thigh, initial encounter; Z04.3 Encounter for examination and observation following other accident; M79.601 Pain in right arm; V89.2XXA Person injured in unspecified motor-vehicle accident, traffic, initial encounter; M79.652 Pain in left thigh

== ENCOUNTER → 2024-11-07 13:20 | Outpatient (BNVA) | payer OTHER, SELFPAY | PROVIDERS: PCP Internal Medicine; Visit Provider Internal Medicine | DX: S40.021D Contusion of right upper arm, subsequent encounter (principal); S70.12XD Contusion of left thigh, subsequent encounter; V89.2XXD Person injured in unspecified motor-vehicle accident, traffic, subsequent encounter | CPT/HCPCS: 99212 ==

== ENCOUNTER 2024-11-11 14:48 | Outpatient (AMB) | payer OTHER, SELFPAY ==
[2024-11-11 14:55] VITALS: BP 104/72; PULSE 99; O2SAT 96; BMI 33.2
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
--- OUTSIDE RECORDS SUMMARY | 2024-11-11 16:10 | XMS_ITS | Encounter Summary ---
Author Organization [facility] Address [address] [place] [address] Care Team Providers Care Loom Setter Name Role Phone Daad Spann MD Primary Care Provider [phone] Jet Rosado MD Primary Care Provider Unav ailable Tom Lucero MD Primary Care Provider Unava ilable Encounter Details Date Type Department Care Team Description 05/13/2014 [facility] Medical Records [address] [place] [id number] Apoorva Duke MD Social History Tobacco Use Types Packs/Day Years Used Date Smoking Tobacco: Never Smokeless Tobacco: Never Alcohol Use Standard Drinks/Week Comments No 0 (1 standard drink = 0.6 oz pur e alcohol) Sex Assigned at Date Recorded Not on file Job Start Date Occupation Industry Not on file Not on file Not on file documented as of this encounter Plan of Treatment Not on file documented as of this encounter Visit Diagnoses Not on filedocumented in this encounter Care Teams Loom Setter Relationship Specialty Start Date End Date Dada Spann MD [address] [place] [id number] PCP - General Internal Medicine 06/23/12 08/19/15 Jet Rosado MD [address] [place] [id number] PCP - General Family Practice 08/20/15 11/04/21 Tom Lucero MD [address] [place] [id number] PCP - General Internal Medicine 11/05/21 documented as of this encounter
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
--- OUTSIDE RECORDS SUMMARY | 2024-11-11 16:10 | XMS_ITS | Encounter Summary ---
Author Organization [facility] Address [address] [place] [address] Care Team Providers Care Straddle Bug Name Role Phone Dada Spann MD Primary Care Provider [phone] Jet Rosado MD Primary Care Provider Unav ailable Tom Lucero MD Primary Care Provider Unava ilable Encounter Details Date Type Department Care Team Description 05/12/2014 [facility] Medical Records [address] [place] [address] Social History Tobacco Use Types Packs/Day Years [...] on filedocumented in this encounter Care Teams Straddle Bug Relationship Specialty Start Date End Date Dada Spann MD [address] [place] [phone] PCP - General Internal Medicine 06/23/12 08/19/15 Jet Rosado MD [address] [place] [phone] PCP - General Family Practice 08/20/15 11/04/21 Tom Lucero MD [address] [place] [phone] PCP - General Internal Medicine 11/05/21 documented as of this encounter
--- OUTSIDE RECORDS SUMMARY | 2024-11-11 16:11 | XMS_ITS | Clinical Summary ---
Author Organization [facility] Address [address] [place] [address] Care Team Providers Care Sliver Machine Operator Name Role Phone Tom Lucero MD Primary Care Provider Unava ilable Allergies Active Allergy Reactions Severity Noted Date Comments Bee Stings Swelling/Edema 01/05/2013 Metronidazole SOB, Wheezing,Rash/Dermatitis 06/2014 Medications No known medications Active Problems Problem Noted Date Blood type O+ NILESH neg 12/05/2014 Pseudotumor cerebri 07/04/2014 Low TSH level 01/05/2013 Overview: Low normal 01/05/2013 0.70 Amenorrhea 01/05/2013 Obesity 09/22/2012 Resolved Problems Problem Noted Date Resolved Date Supervision of other normal 05/04/2014 01/01/2015 Overview: 1. [place] site: [place] 2. Delivery site: [facility] 3. Blood type: B+ 4. Genetic screening: YES Date: 05/16/14 at 8:30 [facility] Result: 1st screen neg (DS & Tri 18 1:10,000 risk). 2nd trimester: Seq screen negative 5. GBS:Negative Date: 11/03/14 6. FOB name: Liam Minshyam 7. Plans A. Epidural or other pain management - plans on going natural B. Labor support identified - C. Tdap due at 36 weeks--Date given: 11/01/14 D. Breast or Bottle feed: breast E. Baby's name - F. Circumcision - yes 8 probable pseudotumor cerebri. On diamox 500 bid Right retinal tear. No merperidine in labor as it increases cerebral blood flow. STOPPPED DIAMOX AGAINST ADVISE OF MFM. IMO update Immunizations Name Administration Dates Next Due Influenza (>6 Months) Split Preservative Free Pixoqau-Wfudc-Ldcenxpj + 10/27/2012 Nblbd-Fquxv-Pfjdmvwb + 10/27/2012 PPD-RBMG 05/15/2015,03/01/2014 Kuakmeq-Laiwr-Hqhkotaz + 10/27/2012 Tdap 11/01/2014,10/25/2012 Varicella Titre-Positive + 10/27/2012 Family History Medical History Relation Name Comments Cervical Cancer Aunt 2 12/2012 from Cx CA per pt. Stroke Aunt 3 Cervical Cancer Mother Stage 3 per pt. Stroke Paternal Grandfather Stroke Uncle 2 Blindness Negative Hx Cataract Negative Hx Glaucoma Negative Hx Macular Degeneration Negative Hx Strabismus Negative Hx Relation Name Status Comments Aunt 1 Aunt 2 Aunt 3 Father Alive Unknown Mother Alive Cervical CA; qu estion of liver CA Paternal Grandfather Sister 1 Alive Sister 2 Alive Sister 3 Alive Sister 4 Alive Sister 5 Alive Uncle 1 Uncle 2 Social History Tobacco Use Types Packs/Day Years Used Date Smoking Tobacco: Never Smokeless Tobacco: Never Alcohol Use Standard Drinks/Week Comments No 0 (1 standard drink = 0.6 oz pur e alcohol) Sex Assigned at Date Recorded Not on file Job Start Date Occupation Industry Not on file Not on file Not on file Last Filed Vital Signs Vital Sign Reading Time Taken Comments Blood Pressure 124/80 12/19/2021 9:06 AM EST Pulse 70 11/06/2021 11:20 AM EST Temperature 36.3 ??C (97.3 ??F) 11/01/2014 8:21 AM ES T Respiratory Rate 16 05/10/2015 1:15 PM EDT Oxygen Saturation 97% 07/03/2014 1:51 PM EDT Inhaled Oxygen Concentration - - Weight 84.8 kg (187 lb) 12/19/2021 9:06 AM EST Height 162.6 cm (5' 4 ) 12/19/2021 9:06 AM EST Body Mass Index 32.1 12/19/2021 9:06 AM EST Plan of Treatment Health Maintenance Due Date Last Done Comments Covid-19 Vaccine (#1) 04/14/1994 TOBACCO CHECK/ADVISE 2011 CERVICAL CANCER SCREENING 2014 CHOLESTEROL SCREENING 02/09/2019 02/09/2014, 013 BASELINE HEALTH EXAM 18-39 05/10/202005/10, 12/19/2013, 10/25/2012 INFLUENZA (#1) 2024 09/01/2014 BMI CHECK/ADVISE 10/19/2024 05/10/2015, 12/19/2013 DEPRESSION SCREENING/FOLLOWUP 10/19/2024, 03/16/2015, 03/16/2015, Additional history exists SOCIAL NEEDS SCREENING 10/19/2024 DTAP/TDAP/TD (3 - Td or Tdap) 11/01/2024 11/01/2014, 10/25/2012 PNEUMOCOCCAL VACCINE FOR HIG H RISK PATIENTS (#1) 2058 Care Teams Sliver Machine Operator Relationship Specialty Start Date End Date Tom Lucero MD PCP - General Internal Medicine 11/05/21
--- OUTSIDE RECORDS SUMMARY | 2024-11-11 16:11 | XMS_ITS | Clinical Summary ---
Author Organization [facility] Address [address] [place] [address] Care Team Providers Care Wet Machine Operator Name Role Phone Tom Lucero MD Primary Care Provider Surgical History Surgery Date Site/Laterality Comments OTHER SURGICAL HISTORY PROCEDURE: DENIES PREVIOUS SURGERY Medical History Medical History Date Comments Obesity 09/22/2012 DX:Obesity Venereal disease, unspecified DX :Venereal disease, unspecified Family History Medical History Relation Name Comments Cervical cancer Aunt 1 12/2012 from Cx [place] per pt. Stroke Aunt 2 Cervical cancer Mother Stage 3 per pt. Stroke Paternal Grandfather Stroke Uncle 1 Blindness Neg Hx Cataracts Neg Hx Glaucoma Neg Hx Macular degeneration Neg Hx Strabismus Neg Hx Relation Name Status Comments Aunt 1 [...] = 0.6 oz pur e alcohol) Sex and Gender Information Value Date Recorded Sex Assigned at Not on file Gender Identity Not on file Sexual Orientation Not on file Obstetrics History Last Filed Vital Signs Vital Sign Reading Time Taken Comments Blood Pressure 124/80 12/19/2021 9:06 AM EST Pulse - - Temperature - - Respiratory Rate - - Oxygen Saturation - - Inhaled Oxygen Concentration - - Weight 84.8 kg (187 lb) 12/19/2021 9:06 AM EST Height 162.6 cm (5' 4 ) 12/19/2021 9:06 AM EST Body Mass Index 32.1 12/19/2021 9:06 AM EST Plan of Treatment Health Maintenance Due Date Last Done Comments Hepatitis B Vaccines (1 of 3 - 19+ 3-dose series) 2012 Cervical Cancer Screening: P ap Smear 2014 Cholesterol Screening (Lipid Panel) 09/27/2022 Depression Screening 09/27/2022 HIV Screening 09/27/2022 Hepatitis C Screening 09/27/2022 Social Influencers of Health Screening 09/27/2022 COVID-19 Vaccine (1 - 2023-2 5 season) 2024 Influenza Vaccine (#1) 2024 09/01/2014 DTaP,Tdap,and Td Vaccines (3 - Td or Tdap) 11/01/2024 11/01/2014, 10/25/2012 HIB Vaccines Aged Out No longer eligi ble based on patient's age to complete this topic HPV Vaccines Aged Out No longer eligi ble based on patient's age to complete this topic Hepatitis A Vaccines Aged Out No long er eligible based on patient's age to complete this topic IPV Vaccines Aged Out No longer eligi ble based on patient's age to complete this topic MMR Vaccines Aged Out No longer eligi ble based on patient's age to complete this topic Meningococcal ACWY Vaccine Aged Out N o longer eligible based on patient's age to complete this topic Pneumococcal Vaccine: Pediatrics (0 to 5 Years) and At-Risk Patients (6 to 64 Years) Aged Out No longer eligible b ased on patient's age to complete this topic RSV Immunization Patients Under 20 months Aged Out No longer eligible b ased on patient's age to complete this topic Varicella Vaccines Aged Out No longer eligible based on patient's age to complete this topic Care Teams Wet Machine Operator Relationship Specialty Start Date End Date Tom Lucero MD [address] [place] [address] [address] [place] PCP - General Internal Medicine 11/05/21
--- OUTSIDE RECORDS SUMMARY | 2024-11-11 16:11 | XMS_ITS | Encounter Summary ---
Author Organization [facility] Address [address] [place] [address] Care Team Providers Care Exercise Manager Name Role Phone Dada Spann MD Primary Care Provider [phone] Jet Rosado MD Primary Care Provider Unav ailable Tom Lucero MD Primary Care Provider Unava ilable Encounter Details Date Type Department Care Team Description 04/20/2015 Night Triage Doc Medical Records [address] [place] [address] Abstract, Provider Social History Tobacco Use Types Packs/Day Years [...] on filedocumented in this encounter Care Teams Exercise Manager Relationship Specialty Start Date End Date Dada Spann MD [address] [place] [phone] PCP - General Internal Medicine 06/23/12 08/19/15 Jet Rosado MD [address] [place] [phone] PCP - General Family Practice 08/20/15 11/04/21 Tom Lucero MD [address] [place] [phone] PCP - General Internal Medicine 11/05/21 documented as of this encounter
--- OUTSIDE RECORDS SUMMARY | 2024-11-11 16:11 | XMS_ITS | Encounter Summary ---
Author Organization [facility] Address [address] [place] [address] Care Team Providers Care Taper And Floater Name Role Phone Dada Spann MD Primary Care Provider [phone] Jet Rosado MD Primary Care Provider Unav ailable Tom Lucero MD Primary Care Provider Unava ilable Reason for Visit * Reason Onset Date Comments REFERRAL 05/30/2014 Encounter Details Date Type Department Care Team Description 05/30/2014 Telephone Adult Medicine - [address] [id number] Dada Spann MD [address] [place] [address] [phone] REFERRAL Social History Tobacco Use Types Packs/Day Years [...] encounter Miscellaneous Notes * Telephone Encounter - Bull Rodriguez L.P.NGricelda - 05/31/2014 1:09 PM EDT [facility] called back with appt for pt -scheduled 06/07/14 at 9 am -pt advised to enter thru [facility]-report from nuchal lucency faxed to [facility]-need to have order placed for referral-routed to Dr Alston * Telephone Encounter - Bull Rodriguez L.P.N. - 05/30/2014 3:26 PM EDT Pt called back-pt had appt 05/16/[address] Huynh's office-requesting report from Lino's office-pt has been waiting for call for appt at [facility]-unsure if records were faxed for review on 05/16/[address] Alston--chart faxed to [facility]- requested u/s copy from 05/16/14 report from Lino's office- * Telephone Encounter - Carolynn Shaw L.P.N. - 05/30/2014 2:48 PM EDT Sent to wrong pool routed to triage * Telephone Encounter - Pari Pope L.P.N. - 05/30/2014 9:11 AM EDT States she is dr alston pt High risk Awaiting ref to [facility] high risk clinic ? Missed appt 05/16? * Telephone Encounter - Socorro Mcintyre - 05/30/2014 9:01 AM EDT Caller requesting call back from provider: Is the caller the patient? YES Reason for call back: Pt is waiting to be referred to [facility] for high risk medication, please call pt Caller offered to speak with the nurse for assistance: YES Response: Patient offered to speak with nurse for assistance and patient agreed. Message forwarded to nurse. documented in this encounter Plan of Treatment Not on file documented as of this encounter Visit Diagnoses Not on filedocumented in this encounter Care Teams Taper And Floater Relationship Specialty Start Date End Date Dada Spann MD [address] [place] [address] PCP - General Internal Medicine 06/23/12 08/19/15 Jet Rosado MD [address] [place] [phone] PCP - General Family Practice 08/20/15 11/04/21 Tom Lucero MD [address] [place] [address] [phone] PCP - General Internal Medicine 11/05/21 documented as of this encounter
--- OUTSIDE RECORDS SUMMARY | 2024-11-11 16:11 | XMS_ITS | Encounter Summary ---
Author Organization [facility] Address [address] [place] [address] Care Team Providers Care Historic Preservationist Name Role Phone Dada Spann MD Primary Care Provider [phone] Jet Rosado MD Primary Care Provider Unav ailable Tom Lucero MD Primary Care Provider Unava ilable Encounter Details Date Type Department Care Team Description 03/30/2015 Satin Finisher Report Medical Records [address] [place] [id number] Giovany Chery MD Social History Tobacco Use Types Packs/Day [...] on filedocumented in this encounter Care Teams Historic Preservationist Relationship Specialty Start Date End Date Dada Spann MD [address] [place] [phone] PCP - General Internal Medicine 06/23/12 08/19/15 Jet Rosado MD [address] [place] [phone] PCP - General Family Practice 08/20/15 11/04/21 Tom Lucero MD [address] [place] [phone] PCP - General Internal Medicine 11/05/21 documented as of this encounter
--- OUTSIDE RECORDS SUMMARY | 2024-11-11 16:11 | XMS_ITS | Encounter Summary ---
Author Organization [facility] Address [address] [place] [address] Care Team Providers Care Change Manager Name Role Phone Dada Spann MD Primary Care Provider [phone] Jet Rosado MD Primary Care Provider Unav ailable Tom Lucero MD Primary Care Provider Unava ilable Encounter Details Date Type Department Care Team Description 06/07/2014 Manager Corporate Responsibility Report Medical Records [address] [place] [address] Liam Hernandes MD Social History Tobacco Use Types Packs/Day [...] on filedocumented in this encounter Care Teams Change Manager Relationship Specialty Start Date End Date Dada Spann MD [address] [place] [phone] PCP - General Internal Medicine 06/23/12 08/19/15 Jet Rosado MD [address] [place] [phone] PCP - General Family Practice 08/20/15 11/04/21 Tom Lucero MD [address] [place] [phone] PCP - General Internal Medicine 11/05/21 documented as of this encounter
--- OUTSIDE RECORDS SUMMARY | 2024-11-11 16:11 | XMS_ITS | Encounter Summary ---
Author Organization [facility] Address [address] [place] [address] Care Team Providers Care Sap Bw Bi Developer Name Role Phone Dada Spann MD Primary Care Provider [phone] Jet Rosado MD Primary Care Provider Unav ailable Tom Lucero MD Primary Care Provider Unava ilable Encounter Details Date Type Department Care Team Description 09/16/2014 Night Triage Doc Medical Records [address] [place] [id number] Abstract, Provider Social History Tobacco Use Types [...] on filedocumented in this encounter Care Teams Sap Bw Bi Developer Relationship Specialty Start Date End Date Dada Spann MD [address] [place] [phone] PCP - General Internal Medicine 06/23/12 08/19/15 Jet Rosado MD [address] [place] [phone] PCP - General Family Practice 08/20/15 11/04/21 Tom Lucero MD [address] [place] [phone] PCP - General Internal Medicine 11/05/21 documented as of this encounter
== END 2024-11-11 15:31 | disposition home or self-care (01) ==
PROVIDERS: PCP Internal Medicine
DX: M79.652 Pain in left thigh (principal); S70.12XD Contusion of left thigh, subsequent encounter; Z04.3 Encounter for examination and observation following other accident

== ENCOUNTER → 2024-11-11 14:48 | Outpatient (BNVA) | payer OTHER, SELFPAY | PROVIDERS: PCP Internal Medicine | DX: M79.652 Pain in left thigh (principal); S70.12XA Contusion of left thigh, initial encounter; S70.12XS Contusion of left thigh, sequela; V89.2XXS Person injured in unspecified motor-vehicle accident, traffic, sequela; Z76.89 Persons encountering health services in other specified circumstances | CPT/HCPCS: 96127; 99212 ==

== ENCOUNTER 2024-12-20 08:59 | Outpatient (REF) | payer OTHER, SELFPAY ==
--- NOTE | ~2024-12-20 | XR_ITS ---
CLINICAL HISTORY: J98.8 - Other specified respiratory disorders 2 view chest x-ray Comparison: None Findings: Lungs are clear without acute infiltrates. No pneumothorax. Heart size normal. No acute bony abnormalities. Impression: No acute processes This document has been electronically signed by: Mark Santiago MD on 12/20/2024 21:17:14
--- NOTE | ~2024-12-20 | XR_ITS ---
CLINICAL HISTORY: R10.9 - Unspecified abdominal pain 1 view abdomen Comparison: None Findings: No significant bowel distention demonstrated. No significant increased stool noted. No free air. No abnormal calcification. No acute bony abnormalities. Impression: No significant abnormalities. This document has been electronically signed by: Mark Santiago MD on 12/20/2024 21:15:38
[2024-12-20 10:25] LABS: MANUAL DIFF FLAG NO
[2024-12-20 11:02] LABS: Basophils Absolute Auto 0.1 X10*3/uL (0.0-0.2); Basophils Percent Auto 1.2 % (0-2); Eosinophils Absolute Auto 0.3 X10*3/uL (0.0-0.4); Eosinophils Percent Auto 4.7 % (0-4); Hematocrit 37.6 % (37.0-47.0); Hemoglobin 11.9 g/dl (12.0-16.0); Imm Gran Abs Auto 0.02 X10*3/uL (0.00-0.03); Imm Gran Pct Auto 0.4 % (0.0-0.4); Lymphocytes Percent Auto 35.1 % (20-40); Mean Corpuscular HGB Conc 31.6 g/dl (31.0-35.0); Mean Corpuscular Hemoglobin 28.4 pg (27.0-33.0); Mean Corpuscular Volume 89.7 fL (80.0-98.0); Mean Platelet Volume 11.2 fL (9.4-12.3); Monocytes Absolute Auto 0.5 X10*3/uL (0.1-1.2); Monocytes Percent Auto 9.1 % (2-11); Neutrophils Absolute Auto 2.8 x10*3/uL (2.0-8.3); Neutrophils Percent Auto 49.5 % (45-73); Platelet Count 239 X10*3/uL (160-400); Red Blood Count 4.19 X10*6/uL (4.20-5.50); Red Cell Distribution Width 14.2 % (11.0-16.0); White Blood Count 5.7 X10*3/uL (4.8-10.8)
[2024-12-20 11:04] LABS: Urine Cytology See Pathology rpt
[2024-12-20 11:12] LABS: Appearance Urine Clear; Color Urine Dark Yellow; Glucose Urine UA Negative (Negative); Leukocyte Esterase Urine Negative (Negative); Nitrite Urine Negative (Negative); Specific Gravity - Urine 1.025 (1.005-1.025); Urine Blood Negative (Negative); Urine Ketones Negative (Negative); Urine Protein Negative (Neg-Trace)
--- OUTSIDE RECORDS SUMMARY | 2024-12-20 11:29 | XMS_ITS | Encounter Summary ---
Author Organization [facility] Address [address] [place] [address] Care Team Providers Care Pm Technician Name Role Phone Dada Spann MD Primary Care Provider Jet Rosado MD Primary Care Provider Unav ailable Tom Lucero MD Primary Care Provider Unava ilable Encounter Details Date Type Department Care Team Description 05/12/2014 [facility] Medical Records [address] [place] [id number] Giovany Chery MD Social History Tobacco Use [...] on filedocumented in this encounter Care Teams Pm Technician Relationship Specialty Start Date End Date Dada Spann MD [address] [place] [id number] PCP - General Internal Medicine 06/23/12 08/19/15 Jet Rosado MD [address] [place] [id number] PCP - General Family Practice 08/20/15 11/04/21 Tom Lucero MD [address] [place] [id number] PCP - General Internal Medicine 11/05/21 documented as of this encounter
--- OUTSIDE RECORDS SUMMARY | 2024-12-20 11:29 | XMS_ITS | Encounter Summary ---
Author Organization [facility] Address [address] [place] [address] Care Team Providers Care Network Desktop Support Specialist Name Role Phone Dada Spann MD Primary Care Provider [phone] Jet Rosado MD Primary Care Provider Unav ailable Tom Lucero MD Primary Care Provider Unava ilable Encounter Details Date Type Department Care Team Description 04/20/2015 Night Triage Doc Medical Records [address] [place] [id number] Abstract, Provider Social History Tobacco Use Types [...] on filedocumented in this encounter Care Teams Network Desktop Support Specialist Relationship Specialty Start Date End Date Dada Spann MD [address] [place] [id number] PCP - General Internal Medicine 06/23/12 08/19/15 Jet Rosado MD [address] [place] [id number] PCP - General Family Practice 08/20/15 11/04/21 Tom Lucero MD [address] [place] [id number] PCP - General Internal Medicine 11/05/21 documented as of this encounter
--- OUTSIDE RECORDS SUMMARY | 2024-12-20 11:29 | XMS_ITS | Encounter Summary ---
Author Organization [facility] Address [address] [place] [address] Care Team Providers Care Dial Mounter Name Role Phone Tom Lucero MD Primary Care Provider Unasofia ilrox Encounter Details Date Type Department Care Team Description 11/13/2021 Orders Only Medical Records [address] [place] [address] Jean-Pierre Azul MD [address] [place] [address] [address] [place] [address] Social History Tobacco Use Types Packs/Day Years Used Date Smoking Tobacco: Never Smokeless Tobacco: Never Alcohol Use Standard Drinks/Week Comments No 0 (1 standard drink = 0.6 oz pur e alcohol) Sex Assigned at Date Recorded Not on file Job Start Date Occupation Industry Not on file Not on file Not on file COVID-19 Exposure Response Date Recorded In the last month, have you been in contact with someone who was confirmed or suspected to have Coronavirus / COVID-19? No / Unsure 11/06/2021 11:13 AM EST documented as of this encounter Plan of Treatment Not on file documented as of this encounter Procedures Procedure Name Priority Date/Time Associated Diagnosis Comments OUTSIDE PATHOLOGY Routine 11/11/2021 OUTSIDE LAB Routine 11/09/2021 documented in this encounter Results * OUTSIDE PATHOLOGY (11/11/2021) Jean-Pierre Azul MD OUTSIDE LAB * OUTSIDE LAB (11/09/2021) Jean-Pierre Azul MD LAB documented in this encounter Visit Diagnoses Not on filedocumented in this encounter Care Teams Dial Mounter Relationship Specialty Start Date End Date Tom Lucero MD PCP - General Internal Medicine 11/05/21 documented as of this encounter
--- OUTSIDE RECORDS SUMMARY | 2024-12-20 11:29 | XMS_ITS | Clinical Summary ---
Author Organization [facility] Address [address] [place] [address] Care Team Providers Care Civil Engineering Specialist Name Role Phone Tom Lucero MD Primary [...] age to complete this topic Care Teams Civil Engineering Specialist Relationship Specialty Start Date End Date Tom Lucero MD [address] [place] [address] [address] [place] PCP - General Internal Medicine 11/05/21
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
--- OUTSIDE RECORDS SUMMARY | 2024-12-20 11:29 | XMS_ITS | Encounter Summary ---
Author Organization [facility] Address [address] [place] [address] Care Team Providers Care Dye Expert Name Role Phone Dada Spann MD Primary Care Provider [phone] Jet Rosado MD Primary Care Provider Unav ailable Tom Lucero MD Primary Care Provider Unava ilable Encounter Details Date Type Department Care Team Description 09/16/2014 Night Triage Doc Medical Records [address] [place] [address] Abstract, Provider Social History Tobacco Use Types [...] on filedocumented in this encounter Care Teams Dye Expert Relationship Specialty Start Date End Date Dada Spann MD [address] [place] [address] PCP - General Internal Medicine 06/23/12 08/19/15 Jet Rosado MD [address] [place] [address] PCP - General Family Practice 08/20/15 11/04/21 Tom Lucero MD [address] [place] [address] PCP - General Internal Medicine 11/05/21 documented as of this encounter
--- OUTSIDE RECORDS SUMMARY | 2024-12-20 11:29 | XMS_ITS | Clinical Summary ---
Author Organization [facility] Address [address] [place] [address] Care Team Providers Care Senior Associate Name Role Phone Tom Lucero MD Primary [...] normal 05/04/2014 01/01/2015 Overview: 1. [facility] site: [place] 2. Delivery site: [facility] 3. Blood type: B+ 4. Genetic screening: YES Date: 05/16/14 at 8:30 [facility] Result: 1st screen neg (DS & [...] Due Influenza (>6 Months) Split Preservative Free Ocdvedy-Tmqzg-Fvygdesc + 10/27/2012 Ayiaa-Xhusp-Rpqewifm + 10/27/2012 PPD-RBMG 05/15/2015,03/01/2014 Ihlpnan-Wtaus-Bjcfbklt + 10/27/2012 Tdap 11/01/2014,10/25/2012 Varicella Titre-Positive + [...] H RISK PATIENTS (#1) 2058 Care Teams Senior Associate Relationship Specialty Start Date End Date Tom Lucero MD PCP - General Internal Medicine 11/05/21
--- OUTSIDE RECORDS SUMMARY | 2024-12-20 11:29 | XMS_ITS | Encounter Summary ---
Author Organization [facility] Address [address] [place] [address] Care Team Providers Care Printing Sales Representative Name Role Phone Dada Spann MD Primary Care Provider [phone] Jet Rosado MD Primary Care Provider Unav ailable Tom Lucero MD Primary Care Provider Unava ilable Encounter Details Date Type Department Care Team Description 09/16/2014 [facility] Medical Records [address] [place] [address] Janis Jane CNM Social History Tobacco Use Types Packs/Day Years [...] on filedocumented in this encounter Care Teams Printing Sales Representative Relationship Specialty Start Date End Date Dada Spann MD [address] [place] [address] PCP - General Internal Medicine 06/23/12 08/19/15 Jet Rosado MD [address] [place] [address] PCP - General Family Practice 08/20/15 11/04/21 Tom Lucero MD [address] [place] [address] PCP - General Internal Medicine 11/05/21 documented as of this encounter
--- OUTSIDE RECORDS SUMMARY | 2024-12-20 11:29 | XMS_ITS | Encounter Summary ---
Author Organization [facility] Address [address] [place] [address] Care Team Providers Care Steel Post Installer Name Role Phone Tom Lucero MD Primary Care Provider Robbin ilrox Encounter Details Date Type Department Care Team Description 11/11/2021 Hospital Medical Records [address] [place] [address] Jean-Pierre Azul MD [address] [place] [address] [address] [place] [address] Social History Tobacco Use Types Packs/Day Years [...] on filedocumented in this encounter Care Teams Steel Post Installer Relationship Specialty Start Date End Date Tom Lucero MD PCP - General Internal Medicine 11/05/21 documented as of this encounter
--- OUTSIDE RECORDS SUMMARY | 2024-12-20 11:29 | XMS_ITS | Encounter Summary ---
Author Organization [facility] Address [address] [place] [address] Care Team Providers Care Senior Technical Business Analyst Name Role Phone Dada Spann MD Primary Care Provider [phone] Jet Rosado MD Primary Care Provider Unav ailable Tom Lucero MD Primary Care Provider Unava ilable Reason for Visit * Reason Onset Date Comments REFERRAL 05/30/2014 Encounter Details Date Type Department Care Team Description 05/30/2014 Telephone Adult Medicine - [address] [id number] Dada Spann MD [address] [place] [address] [id number] REFERRAL Social History Tobacco Use Types Packs/Day [...] Rodriguez L.P.NGricelda - 05/31/2014 1:09 PM EDT [facility] called back with appt for pt -scheduled 06/07/14 at 9 am -pt advised to enter thru [place] entrance-report from nuchal lucency faxed to [facility]-need to have order placed for referral-routed to Dr Alston * Telephone Encounter - Bull Rodriguez L.P.N. - 05/30/2014 3:26 PM EDT Pt called back-pt had appt 05/16/[address] Huynh's office-requesting report from Lino's office-pt has been waiting for call for appt at [facility]-unsure if records were faxed for review on 05/16/[address] Alston--chart faxed to [facility]- requested u/s copy from 05/16/14 report from Lino's office- * Telephone Encounter - Carolynn Shaw L.P.N. - 05/30/2014 2:48 PM EDT Sent to wrong pool routed to triage * Telephone Encounter - Pari Pope L.P.N. - 05/30/2014 9:11 AM EDT States she is dr alston pt High risk Awaiting ref to [facility] high risk clinic ? Missed appt 05/16? * Telephone Encounter - Socorro Mcintyre - 05/30/2014 9:01 AM EDT Caller requesting call back from provider: Is the caller the patient? YES Reason for call back: Pt is waiting to be referred to [facility] for high risk medication, please call pt Caller offered to speak with the nurse for assistance: YES Response: Patient offered to speak with nurse for assistance and patient agreed. Message forwarded to nurse. documented in this encounter Plan of Treatment Not on file documented as of this encounter Visit Diagnoses Not on filedocumented in this encounter Care Teams Senior Technical Business Analyst Relationship Specialty Start Date End Date Dada Spann MD [address] [place] [address] PCP - General Internal Medicine 06/23/12 08/19/15 Jet Rosado MD [address] [place] [address] PCP - General Family Practice 08/20/15 11/04/21 Tom Lucero MD [address] [place] [address] PCP - General Internal Medicine 11/05/21 documented as of this encounter
--- OUTSIDE RECORDS SUMMARY | 2024-12-20 11:29 | XMS_ITS | Encounter Summary ---
Author Organization [facility] Address [address] [place] [address] Care Team Providers Care Volunteer Manager Name Role Phone Jet Rosado MD Primary Care Provider Unav ailable Tom Lucero MD Primary Care Provider Unava ilable Reason for Visit * Reason Onset Date Comments APPOINTMENT 09/06/2021 Encounter Details Date Type Department Care Team Description 09/06/2021 Telephone Gastroenterology - [address] [place] [address] Jerilyn Gagnon DScPAS APPOINTMENT Social History Tobacco Use Types Packs/Day Years [...] encounter Miscellaneous Notes * Telephone Encounter - Socorro Harris - 09/06/2021 9:10 AM EST Received referral from pts pcp at [facility] to schedule a consult DX - Epigastric pain and Abdominal pain. Called pt no answer lvm. Referral in accordion checkout. documented in this encounter Plan of Treatment Not on file documented as of this encounter Visit Diagnoses Not on filedocumented in this encounter Care Teams Volunteer Manager Relationship Specialty Start Date End Date Jet Rosado MD PCP - General Family Practice 08/20/15 11/04/21 Tom Lucero MD PCP - General Internal Medicine 11/05/21 documented as of this encounter
--- OUTSIDE RECORDS SUMMARY | 2024-12-20 11:29 | XMS_ITS | Encounter Summary ---
Author Organization [facility] Address [address] [place] [address] Care Team Providers Care Section Leader And Machine Setter Name Role Phone Dada Spann MD Primary Care Provider [phone] Jet Rosado MD Primary Care Provider Unav ailable Tom Luecro MD Primary Care Provider Unava ilable Encounter Details Date Type Department Care Team Description 05/13/2014 [facility] Medical Records [address] [place] [address] Apoorva Duke MD Social History Tobacco Use [...] on filedocumented in this encounter Care Teams Section Leader And Machine Setter Relationship Specialty Start Date End Date Dada Spann MD [address] [place] [address] PCP - General Internal Medicine 06/23/12 08/19/15 Jet Rosado MD [address] [place] [address] PCP - General Family Practice 08/20/15 11/04/21 Tom Lucero MD [address] [place] [address] PCP - General Internal Medicine 11/05/21 documented as of this encounter
[2024-12-20 11:40] LABS: Alanine Aminotransferase 16 U/L (0-31); Alkaline Phosphatase 41 U/L (39-117); Anion Gap 8 (12-20); Aspartate Amino Transferase 20 U/L (5-31); Bilirubin Total 0.2 mg/dL (0.0-1.0); Blood Urea Nitrogen 14 mg/dL (9-16); Calcium 8.7 mg/dL (8.4-10.2); Carbon Dioxide 28 mmol/L (22-29); Chloride 109 mmol/L (96-108); Cholesterol 169 mg/dL (<200); Estimated Glomerular Filt Rate > 60; Glucose Fasting 85 mg/dL (60-99); HDL Cholesterol 61 mg/dL (>40); LDL Cholesterol Calculated 102 mg/dL (<100); Potassium 4.4 mmol/L (3.3-5.1); Sodium 141 mmol/L (135-145); Total Protein 7.1 g/dL (6.5-8.0); Triglycerides 34 mg/dL (<150)
[2024-12-20 11:55] LABS: TSH reflex Free T4 0.58 uIU/mL (0.32-4.0)
== END 2024-12-20 09:00 | disposition home or self-care (01) ==
LOC: HO.XRAY 08:59
PROVIDERS: PCP Internal Medicine; Visit Provider Internal Medicine
DX: Z00.00 Encounter for general adult medical examination without abnormal findings (principal); R10.9 Unspecified abdominal pain; R10.11 Right upper quadrant pain; R30.0 Dysuria; R31.1 Benign essential microscopic hematuria; E78.00 Pure hypercholesterolemia, unspecified; E55.9 Vitamin D deficiency, unspecified; D64.9 Anemia, unspecified; J98.8 Other specified respiratory disorders; K21.9 Gastro-esophageal reflux disease without esophagitis; Z13.30 Encounter for screening examination for mental health and behavioral disorders, unspecified; R07.89 Other chest pain; K59.00 Constipation, unspecified; G43.909 Migraine, unspecified, not intractable, without status migrainosus; G93.2 Benign intracranial hypertension; G47.00 Insomnia, unspecified; F41.9 Anxiety disorder, unspecified; F31.81 Bipolar II disorder; E66.9 Obesity, unspecified; K11.5 Sialolithiasis; Z68.33 Body mass index [BMI] 33.0-33.9, adult
CPT/HCPCS: 36415; 71046; 74018; 80053; 80061; 81003; 82306; 84443; 85025; 88112; 96127

== ENCOUNTER 2024-12-20 08:59 | Outpatient (AMB) | payer OTHER, SELFPAY ==
[2024-12-20 09:13] VITALS: BP 120/78; PULSE 65; O2SAT 99; BMI 33.6
--- NOTE | 2024-12-20 09:13 | A.OFFPC_ITS ---
Vital Signs 12/20/24 09:13 Height 5 ft 3 in Weight 189 lb 8 oz BMI 33.6 BP 120/78 Blood Pressure Location Lt brachial Position Sitting Pulse 65 Pulse Source Pulse Oximeter Pulse Oximetry (%) 99 Oxygen Delivery Method Room Air Intake Visit Reasons: PE and med review Rn Procedures Required: No Accompanied by: Self / Same As Patient Allergies amoxicillin [From AUGMENTIN] Allergy (Unknown, Verified 12/20/24 09:23) HIVES bee pollen [Bee Stings] Allergy (Unknown, Verified 12/20/24 09:23) SWELLING cephalexin [CEPHALEXIN] Allergy (Unknown, Verified 12/20/24 09:23) HIVES clavulanic acid [From AUGMENTIN] Allergy (Unknown, Verified 12/20/24 09:23) HIVES Medication List - Last Reconciled 12/20/24 by Tom Lucero MD pantoprazole 40 mg PO DAILY 90 days Tobacco use date assessed: 12/20/24 Dental Screening Dental Screen Date: 12/20/24 Did you have a dental visit in the last 12 months?: No Did you have a dental problem in the last 6 months where you did not have access to dental care?: No Was dental information given to patient?: No HPI PE and med review HPI Details Patient comes in today for her annual physical examination States that she has been experiencing recurrent RUQ abdominal pain and on and off right flank pain for the past 2 weeks Also notes (+) alternating diarrhea and constipation lately but states that she has at least a bowel movement every day (+) on and off heartburns - is currently taking Pantoprazole, which she states has helped a lot She denies any headaches or dizziness Denies any chest pains but has noticed that she has been wheezing at times lately Relates that she has been feeling some chest tightness occasionally recently and has noticed that she feels very tired all the time, even after a 10 to 12 hours of sleep overnight Also reports noticing the presence of some trace blood in her urine about 2 weeks ago and that her right flank pains seem to get worse at times when she is urinating Her last pap smear and gynecology exam was in January 2024 - pap was negative; her next gynecology appt is on 01/24/2025 [facility] Medical History Hematoma of left thigh Genetic testing Insomnia Major depression, recurrent GERD without esophagitis Obesity (BMI 30-39.9) Pseudotumor cerebri Migraine Anxiety Skin abscess Surgical History Hx of gastric bypass (~11/30/18) Family History Mother Cervical cancer Family history of stomach cancer Substance use disorder Other Mental health disorder Social History Household Members: Spouse and Children Housing: House Alcohol intake: current Alcohol intake frequency: holidays/special occasions only Patient Tobacco Use Status: Never used Tobacco e-Cigarette/Vaping Use: Never Used Second Hand Smoke Exposure: No Substance Use Type: Marijuana service: No Current occupational status: employed 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 2. Feeling down, depressed, or hopeless: not at all 3. Trouble falling or staying asleep, or sleeping too much: more than half the days 4. Feeling tired or having little energy: more than half the days 5. Poor appetite or overeating: more than half the days 6. Feeling bad about yourself - or that you are a failure or have let yourself or your family down: not at all 7. Trouble concentrating on things, such as reading the newspaper or watching television: more than half the days 8. Moving or speaking so slowly that other people could have noticed. Or the opposite - being so fidgety or restless that you have been moving around a lot more than usual: not at all 9. Thoughts that you would be better off or of hurting yourself in some way: not at all Depression Screening Interpretation: Negative Depression Screening Done: Yes 12456 - PHQ-9 Billing: Yes Source: Developed by Drs. Lester Martinez, Janis Grace, Jaspreet Harding and colleagues, with an educational jersey from [employer]. Thrive Questionnaire Date Thrive assessed: 12/20/24 I am a: Patient What is your living situation today?: I have a steady place to live Within the past 12 months, did the food you bought not last and you didn't have the money to get more?: Never true Within the past 12 months, did you worry whether your food would run out before you got money to buy more?: Never true Do you have trouble paying for medicines?: No Do you have trouble getting transportation to medical appointments?: No Do you have trouble paying your heating and electricity bill?: No Do you have trouble taking care of your child, family member or friend?: No Do you have trouble with day-to-day activities such as bathing, preparing meals, shopping, managing finances, etc.?: No Are you currently unemployed and looking for a job?: No Are you interested in more education?: No Please select the resources that you would like help with: None Currently or been in a relationship where the following occur: No concerns reported THRIVE Score: 0 AUDIT C Alcohol Use Questionnaire (AUDIT-C) 1. How often do you have a drink containing alcohol?: 2-4 times a month 2. How many drinks containing alcohol do you have on a typical day when you are drinking?: 1 or 2 3. How often do you have six or more drinks on one occasion?: Never Total Score: 2 Score Reviewed/Action Taken: Yes JOVANNA-7 AMB Questionnaire JOVANNA-7 Date JOVANNA - 7 assessed: 12/20/24 Feeling nervous, anxious, or on edge: 0 = Not at all Not being able to stop or control worryin = Not at all Worrying too much about different things: 0 = Not at all Trouble relaxin = Several days Being so restless that it is hard to sit still: 0 = Not at all Becoming easily annoyed or irritable: 1 = Several days Feeling afraid as if something awful might happen: 0 = Not at all Total JOVANNA-7 score (0-4 normal; 5-9 mild; 10-14 moderate; 15-21 severe): 2 Source: Developed by Drs. Lester Martinez, Janis Grace, Jaspreet Harding and colleagues, with an educational jersey from [employer]. Review of Systems Const Denies chills, Reports fatigue, Denies fever(s), Denies headache(s) and Denies malaise Eyes Denies blurry vision, Denies change in vision, Denies irritation and Denies itchy eyes ENT Denies dysphagia, Denies dizziness, Denies otalgia, Denies headache(s), Denies nasal congestion, Denies neck pain, Denies odynophagia, Denies sinus pain and Denies sore throat Card Denies chest pain, Denies rapid heart rate, Denies irregular heart rhythm, Denies palpitations and Reports dyspnea (lately) Resp Denies chest congestion (but chest feels tight at times), Denies cough, Reports dyspnea (lately) and Reports wheezing (occasionally lately) GI Reports abdominal pain (RUQ, on and off), Denies bloating, Reports constipation (alternating with diarrhea), Denies dysphagia, Reports heartburn (Pantoprazole helping), Reports diarrhea (alternating with constipation), Denies nausea, Denies odynophagia and Denies vomiting Details: (+) right flank pain Reports hematuria (a couple of weeks ago), Denies urinary frequency, Denies dysuria, Denies urinary incontinence and Denies urinary urgency Musc Reports back pain (over the right flank), Denies arthralgias, Denies joint swelling, Denies muscle weakness and Denies neck pain Skin/Breast Denies breast pain, Denies breast mass, Denies change in pigmentation, Denies lesions, Denies rash and Denies unusual bruising Neuro Denies dizziness, Denies headache(s) and Denies paresthesias Psych Denies anxiety and Denies depression Endo Reports fatigue and Denies palpitations Clifton/Lymph Denies easy bruising Aller/Immun Denies itchy eyes and Reports wheezing (occasionally lately) Physical exam (Primary Care) Vital Signs: Last Vital Signs Pulse 65 12/20/24 09:13 BP 120/78 12/20/24 09:13 Pulse Ox 99 12/20/24 09:13 Oxygen Delivery Method Room Air 12/20/24 09:13 BMI result Body Mass Index 33.6 Tobacco/Smoking Status: Tobacco use Status Tobacco use date assessed 12/20/24 12/20/24 09:19 Patient Tobacco Use Status Never used Tobacco 12/20/24 09:19 e-Cigarette/Vaping Use Never Used 12/20/24 09:19 Depression Screening Interpretation: Negative Thrive Assessment: Date of Thrive Assessment Date Thrive assessed 12/20/24 12/20/24 09:19 Currently or been in a relationship where the following occur: No concerns reported Const General: no acute distress, alert and awake Orientation/consciousness: patient oriented x3 [facility] Head: Yes normocephalic and Yes atraumatic Ears: external ears normal, TM's normal bilaterally and EAC's normal General nose exam: No nasal discharge present Face and sinus: Yes normal facial exam and Yes sinuses nontender Teeth and gingiva: dentition normal Throat: Yes posterior oropharynx normal and Yes tonsils normal (no TP congestion) Eyes Eyelids: Yes eyelids normal Conjunctivae: conjunctivae normal Pupils: Equal, round and reactive pupils present EOM: EOMs intact bilaterally Neck Neck: Yes supple and No lymphadenopathy Thyroid: Thyroid normal Resp Auscultation: no crackles, no rales, no wheezes and diminished lung sounds (significantly) bilateral Cardio Rate: regular rate Rhythm: regular rhythm Heart sounds: no murmurs GI Palpation (GI): Soft to palpation, Tenderness to palpation present (GI) in the RUQ, no guarding, not rigid, No hepatosplenomegaly present and No Rebound tenderness present Auscultation: normal bowel sounds General: Yes CVA tenderness on the right Back/Spine/Pelvis Back: CVA tenderness Thoracic/Lumbar Spine: No lumbar spinal tenderness Skin Lesions: no lesions Rashes: no rashes Neuro General: patient oriented x3, moves all extremities, no focal motor deficits and CN's II-XI intact bilaterally Cranial nerves: Yes Equal, round and reactive pupils present Cognition (Neuro): normal cognition Gait exam (Neuro): Normal gait present Extrem General: Yes no clubbing, cyanosis or edema Coding Level of Care Code Est Pt Prev Care 18-39y(40016) Diagnoses Annual physical exam Z00.00 RUQ abdominal pain R10.11 Acute right flank pain R10.9 GERD without esophagitis K21.9 Sensation of chest tightness R07.89 Sialolithiasis K11.5 Constipation, unspecified constipation type K59.00 Constipation type: unspecified constipation type Migraine without status migrainosus, not intractable, unspecified migraine type G43.909 Migraine type: unspecified Status migrainosus presence: without status migrainosus Intractability: not intractable Pseudotumor cerebri G93.2 Insomnia, unspecified type G47.00 Insomnia type: unspecified Anxiety F41.9 Bipolar 2 disorder, major depressive episode F31.81 Obesity (BMI 30-39.9) E66.9 Additional Codes PHQ-9 - 29095 - PHQ-9 Billing: Yes ([id number]) Assessment & Plan Assessment & Plan (1) Annual physical exam: Code(s): Z00.00 - Encounter for general adult medical examination without abnormal findings Category: Medical Plan: Check labs She is up-to-date with her yearly gynecology exam and pap smear (2) RUQ abdominal pain: Code(s): R10.11 - Right upper quadrant pain Category: Medical Plan: Will send patient for some labs THERESA for further evaluation Will also send her for abdominal US for further evaluation (3) Acute right flank pain: Code(s): R10.9 - Unspecified abdominal pain Category: Medical Plan: Will check urinalysis Will also send patient for KUB for further evaluation (4) GERD without esophagitis: Code(s): K21.9 - Gastro-esophageal reflux disease without esophagitis Category: Medical Plan: Dietary restrictions reinforced Continue Pantoprazole 40 mg QD S/P EGD at [facility] in November 11, 2021 and had Bx and testing done for H. pyl nadia, which were reportedly negative Follow up with GI as scheduled (5) Sensation of chest tightness: Code(s): R07.89 - Other chest pain Category: Medical Plan: Patient denies any history of asthma and any recent cough/cold symptoms Will send her for chest x-rays for further evaluation (6) Sialolithiasis: Code(s): K11.5 - Sialolithiasis Category: Medical Plan: Reports (+) Hx of recurrent salivary gland stones, which she states she has to clear out often She was previously referred to ENT for further evaluation and management and was supposedly recommended to try using a Water Pik regularly to see if this can be controlled Follow up with ENT as scheduled (7) Constipation: Code(s): K59.00 - Constipation, unspecified Category: Medical Qualifiers: Constipation type: unspecified constipation type Qualified Code(s): K59.00 - Constipation, unspecified Plan: Patient is encouraged again to increase her oral fluids and dietary fiber Continue Miralax 17 gm QD (8) Migraine: Code(s): G43.909 - Migraine, unspecified, not intractable, without status migrainosus Category: Medical Qualifiers: Migraine type: unspecified Status migrainosus presence: without status migrainosus Intractability: not intractable Qualified Code(s): G43.909 - Migraine, unspecified, not intractable, without status migrainosus Plan: Controlled lately She was previously taking Topiramate 25 mg once a day at bedtime and Amerge 2.5 mg 1 tablet once a day as needed as instructed but she stopped taking these on her own a while ago as she does not want to take any prescription medications regularly Follow-up with Neurology at [facility] as scheduled (9) Pseudotumor cerebri: Code(s): G93.2 - Benign intracranial hypertension Category: Medical Plan: Follow up with [facility] Neurology as scheduled (10) Insomnia: Code(s): G47.00 - Insomnia, unspecified Category: Medical Qualifiers: Insomnia type: unspecified Qualified Code(s): G47.00 - Insomnia, unspecified Plan: Sleep hygiene reinforced She was taking Trazodone 50 mg Q HS PRN in the past but she also self- discontinued the medication - states that she has been doing okay so far since she stopped taking all of her previous prescriptions except for her Pantoprazole (11) Anxiety: Code(s): F41.9 - Anxiety disorder, unspecified Category: Medical Plan: Follow up with psychiatry as scheduled; also continues to follow up with her counselor / therapist regularly (12) Bipolar 2 disorder, major depressive episode: Code(s): F31.81 - Bipolar II disorder Category: Medical Plan: She used to take Lamotrigine 25 mg 2 tablets QD and Risperidone 0.5 mg Q HS but she self-discontinued these a while back and reports no increase in her depression since Follow up with psychiatry as scheduled (13) Obesity (BMI 30-39.9): Code(s): E66.9 - Obesity, unspecified Category: Medical Plan: Reinforced diet/exercise as tolerated/lose weight S/P gastric bypass surgery by Dr. Muñoz in 2019 Plan Follow up in 3 months Orders: Orders Complete Blood Count Auto Diff Today D64.9 - Anemia, unspecified, Z00.00 - Encounter for general adult medical examination without abnormal findings Lipid Panel Today E78.00 - Pure hypercholesterolemia, unspecified, Z00.00 - Encounter for general adult medical examination without abnormal findings Vitamin D 25-OH Total Today E55.9 - Vitamin D deficiency, unspecified, Z00.00 - Encounter for general adult medical examination without abnormal findings Urine Cytology Today R31.1 - Benign essential microscopic hematuria, Z00.00 - Encounter for general adult medical examination without abnormal findings XR chest 2V Today J98.8 - Other specified respiratory disorders XR KUB Today R10.9 - Unspecified abdominal pain US abdomen complete Today R10.11 - Right upper quadrant pain, R10.9 - Unspecified abdominal pain Comprehensive Delton. Panel Fast Today E78.00 - Pure hypercholesterolemia, unspecified, Z00.00 - Encounter for general adult medical examination without abnormal findings TSH reflex Free T4 Today E78.00 - Pure hypercholesterolemia, unspecified, Z00.00 - Encounter for general adult medical examination without abnormal findings UA CC w/rflx Micro + Cult Today R30.0 - Dysuria, Z00.00 - Encounter for general adult medical examination without abnormal findings
--- OUTSIDE RECORDS SUMMARY | 2024-12-20 09:46 | XMS_ITS | Clinical Summary ---
Author Organization [employer] [facility] Address [address] [place] [address] Care Team Providers Care Fish Hatchery Manager Name Role Phone Tom Lucero MD Primary [...] drink = 0.6 oz pur e alcohol) Comments Unknown Sex and Gender Information Value Date Recorded Sex Assigned at Not on file Legal Sex Female 12:07 PM EST Gender Identity Not on file Sexual Orientation [...] patient's age to complete this topic Meningococcal B Vacine Aged Out No lo nger eligible based on patient's age to complete [...] age to complete this topic Care Teams Fish Hatchery Manager Relationship Specialty Start Date End Date Tom Lucero MD [address] [place] [address] [address] [place] PCP - General Internal Medicine 11/05/21
== END 2024-12-20 09:36 | disposition home or self-care (01) ==
PROVIDERS: PCP Internal Medicine; Visit Provider Internal Medicine
DX: Z00.00 Encounter for general adult medical examination without abnormal findings (principal); R10.11 Right upper quadrant pain; R10.9 Unspecified abdominal pain; F31.81 Bipolar II disorder; K21.9 Gastro-esophageal reflux disease without esophagitis; R07.89 Other chest pain; K11.5 Sialolithiasis; K59.00 Constipation, unspecified; G43.909 Migraine, unspecified, not intractable, without status migrainosus; G93.2 Benign intracranial hypertension; G47.00 Insomnia, unspecified; F41.9 Anxiety disorder, unspecified

== ENCOUNTER → 2024-12-20 10:27 | Outpatient (BNV) | payer OTHER, SELFPAY | PROVIDERS: PCP Internal Medicine; Visit Provider Radiology Diagnostic Radiology | DX: J98.8 Other specified respiratory disorders (principal); R10.9 Unspecified abdominal pain | CPT/HCPCS: 71046; 74018 ==

== ENCOUNTER 2025-01-19 09:28 | Outpatient (REF) | payer OTHER, SELFPAY ==
--- NOTE | ~2025-01-19 | US_ITS ---
EXAMINATION: US ABDOMEN HISTORY: R10.9 - Unspecified abdominal pain TECHNIQUE: Real-time grayscale ultrasound imaging of the abdomen was performed and images were reviewed. COMPARISON: Comparison is made with the prior examination dated 08/02/2021. FINDINGS: Liver: The right lobe of the liver measures 15.7 cm in size. The left lobe of the liver measures 9.7 cm in size. The liver demonstrates mildly increased echotexture, consistent with steatosis. No focal mass or intrahepatic biliary ductal dilatation is identified. There is normal hepatopedal flow in the portal vein. Gallbladder and biliary tree: The gallbladder is unremarkable, without evidence of calculi, wall thickening, or pericholecystic fluid. There is no sonographic Sutton sign. The common bile duct is normal in caliber measuring 2 mm. Kidneys: The right kidney measures 9.6 cm in length and demonstrates multiple 2 mm nonobstructing calculi in the interpolar region. There is no hydronephrosis or mass. The left kidney measures 10.2 cm in length and again demonstrates a 5 mm echogenic lesion at the upper pole which likely represents an angiomyolipoma. Pancreas: The pancreas is largely obscured by bowel gas. Spleen: The spleen is normal in size and contour, measuring 11.8 cm in length. Abdominal aorta and inferior vena cava: The visualized portions of the abdominal aorta and inferior vena cava are normal in caliber. There is no free fluid in the abdomen. US/US abdomen complete IMPRESSION: 1. Hepatomegaly and mild hepatic steatosis. 2. Right nephrolithiasis as described. 3. 5 mm left renal angiomyolipoma. Electronically signed by: Lester Segovia MD 01/19/2025 10:38 AM EDT
--- OUTSIDE RECORDS SUMMARY | 2025-01-19 09:57 | XMS_ITS | Encounter Summary ---
Author Organization [facility] Address [address] [place] [address] Care Team Providers Care Adult Parole Officer Name Role Phone Dada Spann MD Primary Care Provider Jet Rosado MD Primary Care Provider Unav ailable Tom Lucero MD Primary Care Provider Unava ilable Reason for Visit * Reason Onset Date Comments Orders Call 02/28/2014 TB test Encounter Details Date Type Department Care Team Description 02/28/2014 Telephone Adult Medicine - [address] [address] Dada Spann MD [address] [place] [address] Orders Call (TB test) Social History Tobacco Use Types Packs/Day Years Used Date Smoking Tobacco: Never Alcohol Use Standard Drinks/Week Comments Yes 0 (1 standard drink = 0.6 oz pur e alcohol) Sex Assigned at Date Recorded Not on file Job Start Date Occupation Industry Not on file Not on file Not on file documented as of this encounter Miscellaneous Notes * Telephone Encounter - Roxane Fall M.A. - 02/28/2014 8:46 AM EDT Orders pending, please review and sign. 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 Please advise documented in this encounter Plan of Treatment Not on file documented as of this encounter Results * TB INTRADERMAL TEST (03/01/2014 11:17 AM EDT) PPD Induration (PPD) 0mm 03/01/2014 11:1 7 AM EDT Dada Spann MD LAB documented in this encounter Visit Diagnoses Diagnosis Screening examination for pulmonary tuberculosis- Primary documented in this encounter Care Teams Adult Parole Officer Relationship Specialty Start Date End Date Dada Spann MD [address] [place] [address] PCP - General Internal Medicine 06/23/12 08/19/15 Jet Rosado MD [address] [place] [address] PCP - General Family Practice 08/20/15 11/04/21 Tom Lucero MD [address] [place] [address] PCP - General Internal Medicine 11/05/21 documented as of this encounter
--- OUTSIDE RECORDS SUMMARY | 2025-01-19 09:57 | XMS_ITS | Encounter Summary ---
Author Organization [facility] Address [address] [place] [address] Care Team Providers Care Matzo Forming Machine Operator Name Role Phone Dada Spann MD Primary Care Provider [phone] Jet Rosado MD Primary Care Provider Unav ailable Tom Lucero MD Primary Care Provider Unava ilable Encounter Details Date Type Department Care Team Description 05/12/2014 [facility] Medical Records [address] [place] [address] Social History Tobacco Use Types Packs/Day Years [...] on filedocumented in this encounter Care Teams Matzo Forming Machine Operator Relationship Specialty Start Date End Date Dada Spann MD [address] [place] [address] PCP - General Internal Medicine 06/23/12 08/19/15 Jet Rosado MD [address] [place] [address] PCP - General Family Practice 08/20/15 11/04/21 Tom Lucero MD [address] [place] [address] PCP - General Internal Medicine 11/05/21 documented as of this encounter
--- OUTSIDE RECORDS SUMMARY | 2025-01-19 09:57 | XMS_ITS | Encounter Summary ---
Author Organization [facility] Address [address] [place] [address] Care Team Providers Care Car Pincher Name Role Phone Dada Spann MD Primary Care Provider [phone] Jet Rosado MD Primary Care Provider Unav ailable Tom Lucero MD Primary Care Provider Unava ilable Encounter Details Date Type Department Care Team Description 09/16/2014 [facility] Medical Records [address] [place] [address] Janis Jane CNM Social History Tobacco Use [...] on filedocumented in this encounter Care Teams Car Pincher Relationship Specialty Start Date End Date Dada Spann MD [address] [place] [address] PCP - General Internal Medicine 06/23/12 08/19/15 Jet Rosado MD [address] [place] [address] PCP - General Family Practice 08/20/15 11/04/21 Tom Lucero MD [address] [place] [address] PCP - General Internal Medicine 11/05/21 documented as of this encounter
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
--- OUTSIDE RECORDS SUMMARY | 2025-01-19 09:58 | XMS_ITS | Clinical Summary ---
Demographics Address [address] [place] [address] Home Phone Mobile Phone Email Address Email Address Preferred Language en Marital Status Single Baptist Affiliation Unknown Race Unknown Ethnic Group or Author Organization [employer] [facility] ity Address [address] [place] [address] Care Team Providers Care Intelligence Officer Basic Name Role Phone Tom Lucero MD Primary Care Provider [phone] Surgical History Surgery Date Site/Laterality Comments OTHER [...] Vaccine (1 - 2023-2 5 season) 2024 DTaP,Tdap,and Td Vaccines (3 - Td or Tdap) 11/01/2024 11/01/2014, 10/25/2012 Influenza Vaccine (Season Ended) 2025 09/01/2014 HIB Vaccines Aged Out No longer eligi [...] age to complete this topic Care Teams Intelligence Officer Basic Relationship Specialty Start Date End Date Tom Lucero MD [address] [place] [address] [address] [place] PCP - General Internal Medicine 11/05/21
--- OUTSIDE RECORDS SUMMARY | 2025-01-19 09:58 | XMS_ITS | Encounter Summary ---
Author Organization [facility] Address [address] [place] [address] Care Team Providers Care Book Jogger Name Role Phone Jet Rosado MD Primary Care Provider Unav ailable Tom Lucero MD Primary Care Provider Unava ilable Reason for Visit * Reason Onset Date Comments APPOINTMENT 09/06/2021 Encounter Details Date Type Department Care Team Description 09/06/2021 Telephone Gastroenterology - [address] [place] [address] Jerilyn Gagnon DScPAS APPOINTMENT Social [...] EST Received referral from pts pcp at [facility] to schedule a consult DX - Epigastric pain and Abdominal pain. Called pt no answer lvm. Referral in accordion checkout. documented in this encounter Plan of Treatment Not on file documented as of this encounter Visit Diagnoses Not on filedocumented in this encounter Care Teams Book Jogger Relationship Specialty Start Date End Date Jet Rosado MD PCP - General Family Practice 08/20/15 11/04/21 Tom Lucero MD PCP - General Internal Medicine 11/05/21 documented as of this encounter
--- OUTSIDE RECORDS SUMMARY | 2025-01-19 09:58 | XMS_ITS | Encounter Summary ---
Author Organization [facility] Address [address] [place] [address] Care Team Providers Care Molecular Physicist Name Role Phone Tom Lucero MD Primary Care Provider Unasofia ilrox Encounter Details Date Type Department Care Team Description 11/13/2021 Orders Only Medical Records [address] [place] [address] Jean-Pierre Azul MD [address] [place] [address] [address] [place] [address] Social History Tobacco Use Types Packs/Day Years [...] on filedocumented in this encounter Care Teams Molecular Physicist Relationship Specialty Start Date End Date Tom Lucero MD PCP - General Internal Medicine 11/05/21 documented as of this encounter
--- OUTSIDE RECORDS SUMMARY | 2025-01-19 09:58 | XMS_ITS | Encounter Summary ---
Author Organization [facility] Address [address] [place] [address] Care Team Providers Care Cover Maker Name Role Phone Dada Spann MD Primary Care Provider [phone] Jet Rosado MD Primary Care Provider Unav ailable Tom Lucero MD Primary Care Provider Unava ilable Encounter Details Date Type Department Care Team Description 03/30/2015 Footwear Factory Worker Report Medical Records [address] [place] [address] Giovany Chery MD Social History Tobacco Use [...] on filedocumented in this encounter Care Teams Cover Maker Relationship Specialty Start Date End Date Dada Spann MD [address] [place] [address] 538[address] PCP - General Internal Medicine 06/23/12 08/19/15 Jet Rosado MD [address] [place] [address] 21404 PCP - General Family Practice 08/20/15 11/04/21 Tom Lucero MD [address] [place] [address] 07393 PCP - General Internal Medicine 11/05/21 documented as of this encounter
--- OUTSIDE RECORDS SUMMARY | 2025-01-19 09:58 | XMS_ITS | Encounter Summary ---
Author Organization [facility] Address [address] [place] [address] Care Team Providers Care Licensed Psychologist Manager Name Role Phone Dada Spann MD Primary Care Provider [phone] Jet Rosado MD Primary Care Provider Unav ailable Tom Lucero MD Primary Care Provider Unava ilable Encounter Details Date Type Department Care Team Description 06/21/2014 Director Maternal Child Report Medical Records [address] [place] [id number] Giovany Chery MD Social History Tobacco Use [...] on filedocumented in this encounter Care Teams Licensed Psychologist Manager Relationship Specialty Start Date End Date Dada Spann MD [address] [place] [address] PCP - General Internal Medicine 06/23/12 08/19/15 Jet Rosado MD [address] [place] [address] 58751 PCP - General Family Practice 08/20/15 11/04/21 Tom Lucero MD [address] [place] [address] 78173 PCP - General Internal Medicine 11/05/21 documented as of this encounter
--- OUTSIDE RECORDS SUMMARY | 2025-01-19 09:58 | XMS_ITS | Encounter Summary ---
Author Organization [facility] Address [address] [place] [address] Care Team Providers Care Brick Chimney Supervisor Name Role Phone Dada Sapnn MD Primary Care Provider Jet Rosado MD Primary Care Provider Unav ailable Tom Lucero MD Primary Care Provider Unava ilable Encounter Details Date Type Department Care Team Description 05/08/2014 Transfer Records Medical Records [address] [place] [id number] Abstract, Provider Social History Tobacco Use Types [...] on filedocumented in this encounter Care Teams Brick Chimney Supervisor Relationship Specialty Start Date End Date Dada Spann MD [address] [place] [address] 33237 PCP - General Internal Medicine 06/23/12 08/19/15 Jet Rosado MD [address] [place] [address] 58853 PCP - General Family Practice 08/20/15 11/04/21 Tom Lucero MD [address] [place] [address] 11201 PCP - General Internal Medicine 11/05/21 documented as of this encounter
--- OUTSIDE RECORDS SUMMARY | 2025-01-19 09:58 | XMS_ITS | Encounter Summary ---
Author Organization [facility] Address [address] [place] [address] Care Team Providers Care Material Control Associate Name Role Phone Dada Spann MD Primary Care Provider [phone] Jet Rosado MD Primary Care Provider Unav ailable Tom Lucero MD Primary Care Provider Unava ilable Reason for Visit * Reason Onset Date Comments REFERRAL 05/30/2014 Encounter Details Date Type Department Care Team Description 05/30/2014 Telephone Adult Medicine - [address] [phone] Dada Spann MD [address] [place] [address] [phone] REFERRAL Social History Tobacco Use Types Packs/Day [...] Rodriguez L.P.NGricelda - 05/31/2014 1:09 PM EDT [facility] called back with appt for pt -scheduled 06/07/14 at 9 am -pt advised to enter thru [facility] [facility]-report from nuchal lucency faxed to [facility]-need to have order placed for referral-routed to Dr Alston * Telephone Encounter - Bull Rodriguez L.P.N. - 05/30/2014 3:26 PM EDT Pt called back-pt had appt 05/16/[address] Huynh's office-requesting report from Lino's office-pt has been waiting for call for appt at [facility]-unsure if records were faxed for review on 05/16/[address] Alston--chart faxed to [facility]- requested u/s copy from 05/16/14 report from Lino's office- * Telephone Encounter - Carolynn Shaw L.P.N. - 05/30/2014 2:48 PM EDT Sent to wrong pool routed to triage * Telephone Encounter - Pari Pope L.P.N. - 05/30/2014 9:11 AM EDT States she is dr alston pt High risk Awaiting ref to [facility] ? Missed appt 05/16? * Telephone Encounter - Socorro Mcintyre - 05/30/2014 9:01 AM EDT Caller requesting call back from provider: Is the caller the patient? YES Reason for call back: Pt is waiting to be referred to [facility] for high risk medication, please call pt Caller offered to speak with the nurse for assistance: YES Response: Patient offered to speak with nurse for assistance and patient agreed. Message forwarded to nurse. documented in this encounter Plan of Treatment Not on file documented as of this encounter Visit Diagnoses Not on filedocumented in this encounter Care Teams Material Control Associate Relationship Specialty Start Date End Date Dada Spann MD [address] [place] [address] PCP - General Internal Medicine 06/23/12 08/19/15 Jet Rosado MD [address] [place] [address] 31336 PCP - General Family Practice 08/20/15 11/04/21 Tom uLcero MD [address] [place] [address] 89427 PCP - General Internal Medicine 11/05/21 documented as of this encounter
--- OUTSIDE RECORDS SUMMARY | 2025-01-19 09:58 | XMS_ITS | Encounter Summary ---
Author Organization [facility] Address [address] [place] [address] Care Team Providers Care Camp Maintenance Supervisor Name Role Phone Dada Spann MD Primary Care Provider [phone] Jet Rosado MD Primary Care Provider Unav ailable Tom Lucero MD Primary Care Provider Unava ilable Reason for Visit * Reason Onset Date Comments Bleeding During 06/03/2014 Encounter Details Date Type Department Care Team Description 06/03/2014 Telephone Adult Medicine [address] [address] Dada Spann MD [address] [place] [address] 15475 Bleeding During Social History Tobacco Use Types Packs/Day Years [...] encounter Miscellaneous Notes * Telephone Encounter - Hilario Valencia MD - 06/05/2014 7:44 PM EDT Ordered referral fax to [facility] * Telephone Encounter - Naomi Maldonado - 06/03/2014 8:06 AM EDT 16 weeks for 2nd child ... Starting bleeding last night...with cramping. Message to Nneka Enriquez (8:40 a.m.) documented in this encounter Plan of Treatment Not on file documented as of this encounter Visit Diagnoses Not on filedocumented in this encounter Care Teams Camp Maintenance Supervisor Relationship Specialty Start Date End Date Dada Spann MD [address] [place] [address] PCP - General Internal Medicine 06/23/12 08/19/15 Jet Rosado MD [address] [place] [address] 65349 PCP - General Family Practice 08/20/15 11/04/21 Tom Lucero MD [address] [place] [address] 79348 PCP - General Internal Medicine 11/05/21 documented as of this encounter
--- OUTSIDE RECORDS SUMMARY | 2025-01-19 09:58 | XMS_ITS | Encounter Summary ---
Author Organization [facility] Address [address] [place] [address] Care Team Providers Care National Accounts Sales Name Role Phone Dada Spann MD Primary Care Provider [phone] Jet Rosado MD Primary Care Provider Unav ailable Tom Lucero MD Primary Care Provider Unava ilable Encounter Details Date Type Department Care Team Description 04/20/2015 Night Triage Doc Medical Records [address] [place] [phone] Abstract, Provider Social History Tobacco Use Types [...] on filedocumented in this encounter Care Teams National Accounts Sales Relationship Specialty Start Date End Date Dada Spann MD [address] [place] [address] PCP - General Internal Medicine 06/23/12 08/19/15 Jet Rosado MD [address] [place] [address] 61050 PCP - General Family Practice 08/20/15 11/04/21 Tom Lucero MD [address] [place] [address] 89661 PCP - General Internal Medicine 11/05/21 documented as of this encounter
--- OUTSIDE RECORDS SUMMARY | 2025-01-19 09:58 | XMS_ITS | Encounter Summary ---
Author Organization [facility] Address [address] [place] [address] Care Team Providers Care Air Hammer Operator Name Role Phone Dada Spann MD Primary Care Provider [phone] Jet Rosado MD Primary Care Provider Unav ailable Tom Lucero MD Primary Care Provider Unava ilable Encounter Details Date Type Department Care Team Description 09/16/2014 Night Triage Doc Medical Records [address] [place] [id number] Abstract, Provider Social History Tobacco Use Types [...] on filedocumented in this encounter Care Teams Air Hammer Operator Relationship Specialty Start Date End Date Dada Spann MD [address] [place] [address] PCP - General Internal Medicine 06/23/12 08/19/15 Jet Rosado MD [address] [place] [address] 14428 PCP - General Family Practice 08/20/15 11/04/21 Tom Lucero MD [address] [place] [address] 95227 PCP - General Internal Medicine 11/05/21 documented as of this encounter
--- OUTSIDE RECORDS SUMMARY | 2025-01-19 09:58 | XMS_ITS | Encounter Summary ---
Author Organization [facility] Address [address] [place] [address] Care Team Providers Care Embedded Systems Software Engineer Name Role Phone Dada Spann MD Primary Care Provider [phone] Jet Rosado MD Primary Care Provider Unav ailable Tom Lucero MD Primary Care Provider Unava ilable Reason for Visit * Reason Onset Date Comments Eye Exam 12/22/2012 Encounter Details Date Type Department Care Team Description 12/22/2012 Telephone Eye Services-[address] [address] Naomi Ocampo, CHARLES Eye Exam Social History Tobacco Use Types Packs/Day Years Used Date Smoking Tobacco: Never Alcohol Use Standard Drinks/Week Comments Yes 0 (1 standard drink = 0.6 oz pur e alcohol) Sex Assigned at Date Recorded Not on file Job Start Date Occupation Industry Not on file Not on file Not on file documented as of this encounter Miscellaneous Notes * Telephone Encounter - Lavern Shannon - 12/22/2012 11:17 AM EST [facility] LEFT TO SCHEDULE EYE EXAM AFTER 12/22/13 documented in this encounter Plan of Treatment Not on file documented as of this encounter Visit Diagnoses Not on filedocumented in this encounter Care Teams Embedded Systems Software Engineer Relationship Specialty Start Date End Date Dada Spann MD [address] [place] [address] PCP - General Internal Medicine 06/23/12 08/19/15 Jet Rosado MD [address] [place] [address] PCP - General Family Practice 08/20/15 11/04/21 Tom Lucero MD [address] [place] [address] PCP - General Internal Medicine 11/05/21 documented as of this encounter
== END 2025-01-19 09:29 | disposition home or self-care (01) ==
LOC: HO.US 09:28
PROVIDERS: PCP Internal Medicine; Visit Provider Internal Medicine
DX: R10.9 Unspecified abdominal pain (principal); R10.11 Right upper quadrant pain
CPT/HCPCS: 76700

== ENCOUNTER → 2025-01-19 09:31 | Outpatient (BNV) | payer OTHER, SELFPAY | PROVIDERS: PCP Internal Medicine; Visit Provider Radiology Diagnostic Radiology | DX: R16.0 Hepatomegaly, not elsewhere classified (principal); N20.0 Calculus of kidney; D17.71 Benign lipomatous neoplasm of kidney | CPT/HCPCS: 76700 ==

== ENCOUNTER 2025-03-02 10:15 | Outpatient (REF) | payer OTHER, SELFPAY ==
--- OUTSIDE RECORDS SUMMARY | 2025-03-02 12:39 | XMS_ITS | Encounter Summary ---
Author Organization [facility] Address [address] [place] [address] Care Team Providers Care Rip Machine Operator Name Role Phone Dada Spann MD Primary Care Provider [phone] Jet Rosado MD Primary Care Provider Unav ailable Tom Lucero MD Primary Care Provider Unava ilable Encounter Details Date Type Department Care Team Description 06/07/2014 Sign Artist Report Medical Records [address] [place] [address] Liam Hernandes MD Social History Tobacco Use [...] on filedocumented in this encounter Care Teams Rip Machine Operator Relationship Specialty Start Date End Date Dada Spann MD [address] [place] [id number] PCP - General Internal Medicine 06/23/12 08/19/15 Jet Rosado MD [address] [place] [phone] PCP - General Family Practice 08/20/15 11/04/21 Tom Lucero MD [address] [place] [id number] PCP - General Internal Medicine 11/05/21 documented as of this encounter
--- OUTSIDE RECORDS SUMMARY | 2025-03-02 12:39 | XMS_ITS | Encounter Summary ---
Author Organization [facility] Address [address] [place] [address] Care Team Providers Care Whipper Beater Name Role Phone Dada Spann MD Primary Care Provider [phone] eJt Rosado MD Primary Care Provider Unav ailable Tom Lucero MD Primary Care Provider Unava ilable Encounter Details Date Type Department Care Team Description 05/08/2014 Transfer Records Medical Records [address] [place] [id number] Abstract, Provider Social History Tobacco Use Types [...] on filedocumented in this encounter Care Teams Whipper Beater Relationship Specialty Start Date End Date Dada Spann MD [address] [place] [id number] PCP - General Internal Medicine 06/23/12 08/19/15 Jet Rosado MD [address] [place] [id number] PCP - General Family Practice 08/20/15 11/04/21 Tom Lucero MD [address] [place] [phone] PCP - General Internal Medicine 11/05/21 documented as of this encounter
--- OUTSIDE RECORDS SUMMARY | 2025-03-02 12:39 | XMS_ITS | Encounter Summary ---
Author Organization [facility] Address [address] [place] [address] Care Team Providers Care Ocean Export Account Manager Name Role Phone Dada Spann MD Primary Care Provider [phone] Jet Rosado MD Primary Care Provider Unav ailable Tom Lucero MD Primary Care Provider Unava ilable Reason for Visit * Reason Onset Date Comments TEST RESULTS 03/21/2014 Encounter Details Date Type Department Care Team Description 03/21/2014 Telephone OBGYN - [facility] [address] [place] [address] Mitul Galicia CNM TEST RESULTS Social History Tobacco Use Types Packs/Day Years Used Date Smoking Tobacco: Never Alcohol Use Standard Drinks/Week Comments Yes 0 (1 standard drink = 0.6 oz pur e alcohol) Sex Assigned at Date Recorded Not on file Job Start Date Occupation Industry Not on file Not on file Not on file documented as of this encounter Miscellaneous Notes * Telephone Encounter - Nneka Linares M.A. - 03/21/2014 12:58 PM EDT Pt aware of message below and would like to take the pills. The risks and benefits of this medication were discussed with the patient. The patient has been advised to abstain from use of alcohol or vinegar based products while taking this medication. The patient understands the potential side effects and basic interactions of this medication. The patient isasked to call our office if they begin to experience any difficulties with this medication. Please fax to her pharmacy * Telephone Encounter - Nneka Linares M.A. - 03/21/2014 12:57 PM EDT Message copied by NNEKA LINARES M.A. on ThuMar 21, 2014 12:57 PM ------ Message from: MITUL GALICIA Created: ThuMar 20, 2014 4:55 PM Please ask patient if she wants gel or pills for BV Both are OK in documented in this encounter Plan of Treatment Not on file documented as of this encounter Visit Diagnoses Not on filedocumented in this encounter Care Teams Ocean Export Account Manager Relationship Specialty Start Date End Date Dada Spann MD [address] [place] [phone] PCP - General Internal Medicine 06/23/12 08/19/15 Jet Rosado MD [address] [place] [phone] PCP - General Family Practice 08/20/15 11/04/21 Tom Lucero MD [address] [place] [id number] PCP - General Internal Medicine 11/05/21 documented as of this encounter
--- OUTSIDE RECORDS SUMMARY | 2025-03-02 12:39 | XMS_ITS | Encounter Summary ---
Author Organization [facility] Address [address] [place] [address] Care Team Providers Care Mechanic Name Role Phone Dada Spann MD Primary Care Provider [phone] Jet Rosado MD Primary Care Provider Unav ailable Tom Lucero MD Primary Care Provider Unava ilable Encounter Details Date Type Department Care Team Description 05/13/2014 [facility] Medical Records [address] [place] [address] Apoorva Duke MD Social History Tobacco Use [...] on filedocumented in this encounter Care Teams Mechanic Relationship Specialty Start Date End Date Dada Spann MD [address] [place] [phone] PCP - General Internal Medicine 06/23/12 08/19/15 Jet Rosado MD [address] [place] [id number] PCP - General Family Practice 08/20/15 11/04/21 Tom Lucero MD [address] [place] [phone] PCP - General Internal Medicine 11/05/21 documented as of this encounter
--- OUTSIDE RECORDS SUMMARY | 2025-03-02 12:39 | XMS_ITS | Encounter Summary ---
Author Organization [facility] Address [address] [place] [address] Care Team Providers Care Analytical Chemistry Teacher Name Role Phone Dada Spann MD Primary Care Provider Jet Rosado MD Primary Care Provider Unav ailable Tom Lucero MD Primary Care Provider Unava ilable Reason for Visit * Reason Onset Date Comments Bleeding During 06/03/2014 Encounter Details Date Type Department Care Team Description 06/03/2014 Telephone Adult Medicine [address] [address] Dada Spann MD [address] [place] [id number] Bleeding During Social History Tobacco Use Types [...] on filedocumented in this encounter Care Teams Analytical Chemistry Teacher Relationship Specialty Start Date End Date Dada Spann MD [address] [place] [phone] PCP - General Internal Medicine 06/23/12 08/19/15 Jet Rosado MD [address] [place] [phone] PCP - General Family Practice 08/20/15 11/04/21 Tom Lucero MD [address] [place] [id number] PCP - General Internal Medicine 11/05/21 documented as of this encounter
--- OUTSIDE RECORDS SUMMARY | 2025-03-02 12:39 | XMS_ITS | Encounter Summary ---
Author Organization [facility] Address [address] [place] [address] Care Team Providers Care Sales And Marketing Specialist Name Role Phone Dada Spann MD Primary Care Provider [phone] Jet Rosado MD Primary Care Provider Unav ailable Tom Lucero MD Primary Care Provider Unava ilable Encounter Details Date Type Department Care Team Description 09/16/2014 [facility] Medical Records [address] [place] [address] Janis Jane CNM Social History Tobacco Use [...] on filedocumented in this encounter Care Teams Sales And Marketing Specialist Relationship Specialty Start Date End Date Dada Spann MD [address] [place] [address] PCP - General Internal Medicine 06/23/12 08/19/15 Jet Rosado MD [address] [place] [address] PCP - General Family Practice 08/20/15 11/04/21 Tom Lucero MD [address] [place] [address] PCP - General Internal Medicine 11/05/21 documented as of this encounter
--- OUTSIDE RECORDS SUMMARY | 2025-03-02 12:39 | XMS_ITS | Encounter Summary ---
Author Organization [facility] Address [address] [place] [address] Care Team Providers Care Studio Manager Name Role Phone Dada Spann MD Primary Care Provider [phone] Jet Rosado MD Primary Care Provider Unav ailable Tom Lucero MD Primary Care Provider Unava ilable Encounter Details Date Type Department Care Team Description 05/12/2014 [facility] Medical Records [address] [place] [address] Social History Tobacco Use Types Packs/Day Years [...] on filedocumented in this encounter Care Teams Studio Manager Relationship Specialty Start Date End Date Dada Spann MD [address] [place] [address] PCP - General Internal Medicine 06/23/12 08/19/15 Jet Rosado MD [address] [place] [address] PCP - General Family Practice 08/20/15 11/04/21 Tom Lucero MD [address] [place] [address] PCP - General Internal Medicine 11/05/21 documented as of this encounter
--- OUTSIDE RECORDS SUMMARY | 2025-03-02 12:39 | XMS_ITS | Encounter Summary ---
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 Please advise documented in this encounter Plan of Treatment Not on file documented as of this encounter Results * TB INTRADERMAL TEST (03/01/2014 11:17 AM EDT) PPD Induration (PPD) 0mm 03/01/2014 11:1 7 AM EDT Dada Spann MD LAB documented in this encounter Visit Diagnoses Diagnosis Screening examination for pulmonary tuberculosis- Primary documented in this encounter Care Teams Dope Dry House Operator Relationship Specialty Start Date End Date Dada Spann MD [address] [place] [address] PCP - General Internal Medicine 06/23/12 08/19/15 Jet Rosado MD [address] [place] [address] PCP - General Family Practice 08/20/15 11/04/21 Tom Lucero MD [address] [place] [address] PCP - General Internal Medicine 11/05/21 documented as of this encounter
--- OUTSIDE RECORDS SUMMARY | 2025-03-02 12:40 | XMS_ITS | Encounter Summary ---
Author Organization [facility] Address [address] [place] [address] Care Team Providers Care Transition Lead Name Role Phone Tom Lucero MD Primary Care Provider Robbin ilrox Encounter Details Date Type Department Care Team Description 11/11/2021 Hospital Medical Records [address] [place] [address] Jean-Pierre Azul MD [address] [place] [address] [address] [place] [address] Social History Tobacco Use Types Packs/Day Years [...] on filedocumented in this encounter Care Teams Transition Lead Relationship Specialty Start Date End Date Tom Lucero MD PCP - General Internal Medicine 11/05/21 documented as of this encounter
--- OUTSIDE RECORDS SUMMARY | 2025-03-02 12:40 | XMS_ITS | Encounter Summary ---
Author Organization [facility] Address [address] [place] [address] Care Team Providers Care Modeling Director Name Role Phone Dada Spann MD Primary Care Provider [phone] Jet Rosado MD Primary Care Provider Unav ailable Tom Lucero MD Primary Care Provider Unava ilable Encounter Details Date Type Department Care Team Description 04/20/2015 Night Triage Doc Medical Records [address] [place] [address] Abstract, Provider Social History Tobacco Use Types [...] on filedocumented in this encounter Care Teams Modeling Director Relationship Specialty Start Date End Date Dada Spann MD [address] [place] [address] PCP - General Internal Medicine 06/23/12 08/19/15 Jet Rosado MD [address] [place] [address] PCP - General Family Practice 08/20/15 11/04/21 Tom Lucero MD [address] [place] [address] PCP - General Internal Medicine 11/05/21 documented as of this encounter
--- OUTSIDE RECORDS SUMMARY | 2025-03-02 12:40 | XMS_ITS | Encounter Summary ---
Author Organization [facility] Address [address] [place] [address] Care Team Providers Care Bias Binding Cutter Name Role Phone Jet Rosado MD Primary Care Provider Tom Thomas MD Primary Care Provider Robbin jaeger Encounter Details Date Type Department Care Team Description 08/16/2021 [facility] Report Medical Records [address] [place] [address] Niki Mckoy, RESIDENCY COORDINATOR Social History Tobacco Use Types Packs/Day Years [...] on filedocumented in this encounter Care Teams Bias Binding Cutter Relationship Specialty Start Date End Date Jet Rosado MD PCP - General Family Practice 08/20/15 11/04/21 Tom Lucero MD PCP - General Internal Medicine 11/05/21 documented as of this encounter
--- OUTSIDE RECORDS SUMMARY | 2025-03-02 12:40 | XMS_ITS | Encounter Summary ---
Author Organization [facility] Address [address] [place] [address] Care Team Providers Care Bone Density Technician Name Role Phone Dada Rosales MD Primary Care Provider [phone] Jet Rosado MD Primary Care Provider Unav ailable Tom Lucero MD Primary Care Provider Unava ilable Reason for Visit * Reason Onset Date Comments TEST RESULTS 09/27/2012 Encounter Details Date Type Department Care Team Description 09/27/2012 Telephone Adult Medicine - [address] [address] Dada Rosales MD [address] [place] [address] TEST RESULTS Social History Tobacco Use Types Packs/Day Years Used Date Smoking Tobacco: Never Alcohol Use Standard Drinks/Week Comments Not Asked 0 (1 standard drink = 0.6 oz pur e alcohol) Sex Assigned at Date Recorded Not on file Job Start Date Occupation Industry Not on file Not on file Not on file documented as of this encounter Miscellaneous Notes * Telephone Encounter - Fe Joyner L.P.N. - 09/27/2012 4:39 PM EST Pt read letter of 09/27 * Telephone Encounter - Dada Rosales MD - 09/27/2012 2:56 PM EST Seen by DR Manning * Telephone Encounter - Panfilo Wen - 09/27/2012 12:13 PM EST Inform patient: ANY URGENT OR ABNORMAL RESULTS WIILL RESULT IN A CALL BACK TO THE PATIENT THERESA. Type of test: :XRAYS Date test was performed: 09/22/12 Where was the test performed: [facility] Who ordered this test?: DR. ROSALES Is the doctor here today?: YES Can the message wait until the doctor returns?: NO IF PATIENT'S PCP IS NOT IN INSTRUCT PATIENT THAT THEY WILL RECEIVE A CALL BACK WHEN THE PCP IS IN THE OFFICE NEXT. documented in this encounter Plan of Treatment Not on file documented as of this encounter Visit Diagnoses Not on filedocumented in this encounter Care Teams Bone Density Technician Relationship Specialty Start Date End Date Dada Rosales MD [address] [place] [address] PCP - General Internal Medicine 06/23/12 08/19/15 Jet Rosado MD [address] [place] [address] PCP - General Family Practice 08/20/15 11/04/21 Tom Lucero MD [address] [place] [address] PCP - General Internal Medicine 11/05/21 documented as of this encounter
--- OUTSIDE RECORDS SUMMARY | 2025-03-02 12:40 | XMS_ITS | Encounter Summary ---
Author Organization [facility] Address [address] [place] [address] Care Team Providers Care Ripening Room Operator Name Role Phone Tom Lucero MD Primary Care Provider Robbin jaeger Encounter Details Date Type Department Care Team Description 12/19/2021 Telephone Gastroenterology - [address] [place] [address] Jerilyn Gagnon DScPAS Social History Tobacco Use Types Packs/Day Years [...] have Coronavirus / COVID-19? No / Unsure 12/19/2021 8:43 AM EST documented as of this encounter Plan of Treatment Not on file documented as of this encounter Visit Diagnoses Not on filedocumented in this encounter Care Teams Ripening Room Operator Relationship Specialty Start Date End Date Tom Lucero MD PCP - General Internal Medicine 11/05/21 documented as of this encounter
--- OUTSIDE RECORDS SUMMARY | 2025-03-02 12:40 | XMS_ITS | Encounter Summary ---
Author Organization [facility] Address [address] [place] [address] Care Team Providers Care Shoe Worker Name Role Phone Dada Spann MD Primary Care Provider [phone] Jet Rosado MD Primary Care Provider Unav ailable Tom Lucero MD Primary Care Provider Unava ilable Encounter Details Date Type Department Care Team Description 03/30/2015 Transition Mgr Report Medical Records [address] [place] [address] Giovany Chery MD Social History Tobacco Use [...] on filedocumented in this encounter Care Teams Shoe Worker Relationship Specialty Start Date End Date Dada Spann MD [address] [place] [address] PCP - General Internal Medicine 06/23/12 08/19/15 Jet Rosado MD [address] [place] [address] PCP - General Family Practice 08/20/15 11/04/21 Tom Lucero MD [address] [place] [address] PCP - General Internal Medicine 11/05/21 documented as of this encounter
--- OUTSIDE RECORDS SUMMARY | 2025-03-02 12:40 | XMS_ITS | Encounter Summary ---
Author Organization [facility] Address [address] [place] [address] Care Team Providers Care Liner Man Name Role Phone Dada Spann MD Primary Care Provider [phone] Jet Rosado MD Primary Care Provider Unav ailable Tom Lucero MD Primary Care Provider Unava ilable Encounter Details Date Type Department Care Team Description 11/23/2014 [facility] Medical Records [address] [place] [address] Social History Tobacco Use Types Packs/Day Years [...] on filedocumented in this encounter Care Teams Liner Man Relationship Specialty Start Date End Date Dada Spann MD [address] [place] [address] PCP - General Internal Medicine 06/23/12 08/19/15 Jet Rosado MD [address] [place] [address] PCP - General Family Practice 08/20/15 11/04/21 Tom Lucero MD [address] [place] [address] PCP - General Internal Medicine 11/05/21 documented as of this encounter
--- OUTSIDE RECORDS SUMMARY | 2025-03-02 12:40 | XMS_ITS | Clinical Summary ---
Demographics Address [address] [place] [address] Home Phone Mobile Phone Email Address Email Address Preferred Language en Marital Status Single Cheondoism Affiliation Unknown Race Unknown Ethnic Group or Author Organization [facility] Address [address] [place] [address] Care Team Providers Care Bi Solutions Architect Name Role Phone Tom Lucero MD Primary Care Provider [phone] Surgical History Surgery Date Site/Laterality Comments OTHER [...] age to complete this topic Care Teams Bi Solutions Architect Relationship Specialty Start Date End Date Tom Lucero MD [address] [place] [address] [address] [place] PCP - General Internal Medicine 11/05/21
[2025-03-02 12:54] LABS: TSH reflex Free T4 0.46 uIU/mL (0.32-4.0); Vitamin D 25-OH Total 25.5 ng/mL (>30)
[2025-03-02 12:58] LABS: Syphilis Screen Nonreactive (Nonreactive)
[2025-03-02 12:59] LABS: HBS Num1 731.53 mIU/mL (0-7.99); HBc Num1 0.06 S/CO (0.00-0.79); HBsAGNum1 0.38 S/CO (0.00-0.99); HIV AB/AG Nonreactive (Nonreactive); HIV Num 1 0.43 S/CO (0.00-0.99); Hepatitis B Core Antibody Nonreactive (Nonreactive); ~HepC Num1 0.08 S/CO (0.00-0.79); ~Hepatitis B Surface Antibody REACTIVE (Nonreactive); ~Hepatitis C Antibody Nonreactive (Nonreactive)
[2025-03-02 13:00] LABS: Hepatitis B Surface Antigen Negative (Negative)
[2025-03-02 13:30] LABS: CT PCR NOT DETECTED (Not Detect.); NG PCR NOT DETECTED (Not Detect.)
== END 2025-03-02 10:16 | disposition home or self-care (01) ==
LOC: HO.LAB 10:15
PROVIDERS: PCP Internal Medicine; Visit Provider Internal Medicine
DX: G43.909 Migraine, unspecified, not intractable, without status migrainosus (principal); G93.2 Benign intracranial hypertension; K21.9 Gastro-esophageal reflux disease without esophagitis; R10.30 Lower abdominal pain, unspecified; K11.5 Sialolithiasis; K59.00 Constipation, unspecified; L29.89 Other pruritus; G47.00 Insomnia, unspecified; F41.9 Anxiety disorder, unspecified; F31.81 Bipolar II disorder; E66.9 Obesity, unspecified; Z79.899 Other long term (current) drug therapy; Z20.2 Contact with and (suspected) exposure to infections with a predominantly sexual mode of transmission; Z91.09 Other allergy status, other than to drugs and biological substances; Z00.00 Encounter for general adult medical examination without abnormal findings; E78.00 Pure hypercholesterolemia, unspecified; E55.9 Vitamin D deficiency, unspecified
CPT/HCPCS: 82306; 84443; 86704; 86706; 86780; 86803; 87340; 87389; 87491; 87591; 96127

== ENCOUNTER 2025-03-02 10:15 | Outpatient (AMB) | payer OTHER, SELFPAY ==
--- NOTE | 2025-03-02 10:31 | A.OFFPC_ITS ---
Vital Signs 03/02/25 10:32 Height 5 ft 3 in Weight 179 lb BMI 31.7 BP 102/80 Blood Pressure Location Lt brachial Position Sitting Pulse 99 Pulse Source Pulse Oximeter Pulse Oximetry (%) 98 Oxygen Delivery Method Room Air Intake Visit Reasons: 3 month f/u Intake Note: Patient stated her hands and feet get severely itchy with burning sensation only way to stop it is by taking Benadryl, patient also states when she cough she feel a pain on her lower abdomen and tailbone. Human Resources Operations Specialist Required: No Accompanied by: Self / Same As Patient Allergies amoxicillin [From AUGMENTIN] Allergy (Unknown, Verified 03/02/25 11:12) HIVES bee pollen [Bee Stings] Allergy (Unknown, Verified 03/02/25 11:12) SWELLING cephalexin [CEPHALEXIN] Allergy (Unknown, Verified 03/02/25 11:12) HIVES clavulanic acid [From AUGMENTIN] Allergy (Unknown, Verified 03/02/25 11:12) HIVES Medication List - Last Reconciled 03/02/25 by Tom Lucero MD pantoprazole 40 mg PO DAILY 90 days Tobacco use date assessed: 03/02/25 Dental Screening Dental Screen Date: 03/02/25 Did you have a dental visit in the last 12 months?: No Did you have a dental problem in the last 6 months where you did not have access to dental care?: No Was dental information given to patient?: No HPI 3 month f/u HPI Details Patient comes in today for her follow up visit States that she's had recurrent itching/burning and rash on her hands and feet, which she states occur most often at night - relates that these symptoms started about 2 months ago States that the only way she can get her symptoms to calm down is to take some OTC Benadryl but the symptoms just come back the next day Adds that she still has on and off lower abdominal pain at times - feels that this is sometimes triggered when she coughs Also notes (+) pain over her tailbone area at the same time and is wondering if these are related She had an abdominal US done last month and would like to know how her results came out She denies any fever, headaches or dizziness Denies any chest pains, no SOB No nausea/vomiting and no change in bowel habits noted She would also like to know how her labs done a couple of months ago came out and is also asking to have STD testing done again today She adds that with her recent labs and if there are no issues that would preclude her from doing so, she would like to try going on one of the GLPs to help her lose some weight PFSH Medical History Hematoma of left thigh Genetic testing Insomnia Major depression, recurrent GERD without esophagitis Obesity (BMI 30-39.9) Pseudotumor cerebri Migraine Anxiety Skin abscess Surgical History Hx of gastric bypass (~11/30/18) Family History Mother Cervical cancer Family history of stomach cancer Substance use disorder Other Mental health disorder Social History Household Members: Spouse and Children Housing: House Alcohol intake: current Alcohol intake frequency: holidays/special occasions only Patient Tobacco Use Status: Never used Tobacco e-Cigarette/Vaping Use: Never Used Second Hand Smoke Exposure: No Substance Use Type: Marijuana service: No Current occupational status: employed 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 1. Little interest or pleasure in doing things: not at all 2. Feeling down, depressed, or hopeless: not at all 3. Trouble falling or staying asleep, or sleeping too much: not at all 4. Feeling tired or having little energy: not at all 5. Poor appetite or overeating: not at all 6. Feeling bad about yourself - or that you are a failure or have let yourself or your family down: not at all 7. Trouble concentrating on things, such as reading the newspaper or watching television: not at all 8. Moving or speaking so slowly that other people could have noticed. Or the opposite - being so fidgety or restless that you have been moving around a lot more than usual: not at all 9. Thoughts that you would be better off or of hurting yourself in some way: not at all Total score: 0 Depression Screening Interpretation: Negative Depression Screening Done: Yes 50465 - PHQ-9 Billing: Yes Source: Developed by Drs. Lester Martinez, Janis Grace, Jaspreet Harding and colleagues, with an educational jersey from [email or web address]. Thrive Questionnaire Date Thrive assessed: 03/02/25 I am a: Patient What is your living situation today?: I have a steady place to live Within the past 12 months, did the food you bought not last and you didn't have the money to get more?: Never true Within the past 12 months, did you worry whether your food would run out before you got money to buy more?: Never true Do you have trouble paying for medicines?: No Do you have trouble getting transportation to medical appointments?: No Do you have trouble paying your heating and electricity bill?: No Do you have trouble taking care of your child, family member or friend?: No Do you have trouble with day-to-day activities such as bathing, preparing meals, shopping, managing finances, etc.?: No Are you currently unemployed and looking for a job?: No Are you interested in more education?: No Please select the resources that you would like help with: None Currently or been in a relationship where the following occur: No concerns reported THRIVE Score: 0 AUDIT C Alcohol Use Questionnaire (AUDIT-C) 1. How often do you have a drink containing alcohol?: 2-4 times a month 2. How many drinks containing alcohol do you have on a typical day when you are drinking?: 1 or 2 3. How often do you have six or more drinks on one occasion?: Never Total Score: 2 Score Reviewed/Action Taken: Yes JOVANNA-7 AMB Questionnaire JOVANNA-7 Date JOVANNA - 7 assessed: 03/02/25 Feeling nervous, anxious, or on edge: 0 = Not at all Not being able to stop or control worryin = Not at all Worrying too much about different things: 0 = Not at all Trouble relaxin = Several days Being so restless that it is hard to sit still: 0 = Not at all Becoming easily annoyed or irritable: 1 = Several days Feeling afraid as if something awful might happen: 0 = Not at all Total JOVANNA-7 score (0-4 normal; 5-9 mild; 10-14 moderate; 15-21 severe): 2 Source: Developed by Drs. Lester Martinez, Janis Grace, Jaspreet Harding and colleagues, with an educational jersey from [email or web address]. Review of Systems Const Denies chills, Reports fatigue, Denies fever(s) and Denies headache(s) ENT Denies dysphagia, Denies dizziness, Denies otalgia, Denies headache(s), Denies neck pain, Denies odynophagia and Denies sore throat Card Denies chest pain, Denies irregular heart rhythm, Denies palpitations and Denies dyspnea Resp Denies chest congestion, Denies cough, Denies dyspnea and Denies wheezing GI Reports abdominal pain (on and off, over the lower abdomen), Reports constipation (alternating with diarrhea), Denies dysphagia, Denies heartburn, Reports diarrhea (alternating with constipation), Denies nausea, Denies odynophagia and Denies vomiting Denies difficulty voiding, Denies dysuria and Denies urinary urgency Musc Denies back pain, Denies arthralgias and Denies neck pain Skin/Breast Details: recurrent itching and rash over her hands and feet, most often at night, for the past couple of months - see HPI Neuro Denies dizziness, Denies headache(s) and Denies paresthesias Psych Denies anxiety and Denies depression Endo Reports fatigue and Denies palpitations Clifton/Lymph Denies easy bruising Aller/Immun Denies wheezing Physical exam (Primary Care) Vital Signs: Last Vital Signs Pulse 99 03/02/25 10:32 BP 102/80 03/02/25 10:32 Pulse Ox 98 03/02/25 10:32 Oxygen Delivery Method Room Air 03/02/25 10:32 BMI result Body Mass Index 31.7 Tobacco/Smoking Status: Tobacco use Status Tobacco use date assessed 03/02/25 03/02/25 10:35 Patient Tobacco Use Status Never used Tobacco 03/02/25 10:35 e-Cigarette/Vaping Use Never Used 03/02/25 10:35 PHQ-9: PHQ-9 Score PHQ-9: Total score 0 03/02/25 11:17 Depression Screening Interpretation: Negative Thrive Assessment: Date of Thrive Assessment Date Thrive assessed 03/02/25 03/02/25 10:35 Currently or been in a relationship where the following occur: No concerns reported Const General: no acute distress and alert HENMT Ears: TM's normal bilaterally and EAC's normal Throat: Yes posterior oropharynx normal and Yes tonsils normal (no TP c ongestion) Neck Neck: Yes supple and No lymphadenopathy Thyroid: Thyroid normal Resp Auscultation: clear to auscultation bilaterally, no crackles, no rales and no wheezes Cardio Rate: regular rate Rhythm: regular rhythm Heart sounds: no murmurs GI Palpation (GI): Soft to palpation and nontender Auscultation: normal bowel sounds General: Yes no CVA tenderness Back/Spine/Pelvis Back: no CVA tenderness Thoracic/Lumbar Spine: No lumbar spinal tenderness Skin Rashes: no rashes (no rashes noted on her hands and feet at present) Extrem General: Yes no clubbing, cyanosis or edema Results Reviewed Results Reviewed: Laboratory Tests 10/30/24 12/20/24 12/20/24 12:13 10:20 10:24 WBC 8.0 5.7 Hgb 12.5 11.9 L Hct 37.6 37.6 Plt Count 208 239 Sodium 142 141 Potassium 4.5 4.4 Creatinine 0.78 0.82 Estimated GFR > 60 > 60 Random Glucose 92 Fasting Glucose 85 Calcium 8.9 8.7 AST 35 H 20 ALT 21 16 Triglycerides 34 Cholesterol 169 LDL Cholesterol, Calc 102 H HDL Cholesterol 61 25-OH Vitamin D Total 21.0 L TSH 0.58 Urine pH 6.0 Ur Specific Lacrosse 1.025 Urine Protein Negative Urine Glucose (UA) Negative Urine Blood Negative Urine Nitrite Negative Ur Leukocyte Esterase Negative Coding Level of Care Code Est Pt Level 4 (97028) Diagnoses Migraine without status migrainosus, not intractable, unspecified migraine type G43.909 Migraine type: unspecified Status migrainosus presence: without status migrainosus Intractability: not intractable Pseudotumor cerebri G93.2 GERD without esophagitis K21.9 Lower abdominal pain R10.30 Sialolithiasis K11.5 Constipation, unspecified constipation type K59.00 Constipation type: unspecified constipation type Pruritic erythematous rash L29.89 Insomnia, unspecified type G47.00 Insomnia type: unspecified Anxiety F41.9 Bipolar 2 disorder, major depressive episode F31.81 Obesity (BMI 30-39.9) E66.9 Possible exposure to STD Z20.2 Additional Codes PHQ-9 - 53738 - PHQ-9 Billing: Yes ([id number]) Assessment & Plan Assessment & Plan (1) Migraine: Code(s): G43.909 - Migraine, unspecified, not intractable, without status migrainosus Category: Medical Qualifiers: Migraine type: unspecified Status migrainosus presence: without status migrainosus Intractability: not intractable Qualified Code(s): G43.909 - Migraine, unspecified, not intractable, without status migrainosus Plan: Controlled lately She was previously taking Topiramate 25 mg once a day at bedtime and Amerge 2.5 mg 1 tablet once a day as needed as instructed but she stopped taking these on her own a while ago as she does not want to take any prescription medications regularly Follow-up with Neurology at [facility] as scheduled (2) Pseudotumor cerebri: Code(s): G93.2 - Benign intracranial hypertension Category: Medical Plan: Follow up with [facility] Neurology as scheduled (3) GERD without esophagitis: Code(s): K21.9 - Gastro-esophageal reflux disease without esophagitis Category: Medical Plan: Dietary restrictions reinforced Continue Pantoprazole 40 mg QD S/P EGD at [place] in November 11, 2021 and had Bx and testing done for H. pylori, which were reportedly negative Follow up with GI as scheduled (4) Lower abdominal pain: Code(s): R10.30 - Lower abdominal pain, unspecified Category: Medical Plan: She currently reports (+) on and off lower abdominal pain and would like to know how her abdominal US done last month came out Have reminded patient that she was experiencing on and off RUQ abdominal pain when we ordered her US a few months ago, which is different from her recent complaint of on and off lower abdominal pain Have advised her that her abdominal US came back showing only findings of hepatic steatosis, right non-obstructing nephrolithiasis and a 5 mm left renal angiomyolipoma and none of these help explain her previous RUQ and current lower abdominal pain Discussed that her recent abdominal symptoms may likely be either musculoskeletal or due to bowel gas (?) Results of her labs done a couple of months ago reviewed and discussed with patient - advised that these also do not help explain her recent symptoms (5) Sialolithiasis: Code(s): K11.5 - Sialolithiasis Category: Medical Plan: Reports (+) Hx of recurrent salivary gland stones, which she states she has to clear out often She was previously referred to ENT for further evaluation and management and was supposedly recommended to try using a Water Pik regularly to see if this can be controlled better Follow up with ENT as scheduled (6) Constipation: Code(s): K59.00 - Constipation, unspecified Category: Medical Qualifiers: Constipation type: unspecified constipation type Qualified Code(s): K59.00 - Constipation, unspecified Plan: Patient is encouraged again to increase her oral fluids and dietary fiber Continue Miralax 17 gm QD (7) Pruritic erythematous rash: Code(s): L29.89 - Other pruritus Category: Medical Plan: Have advised patient that her recurrent hand and feet symptoms (rash and itching) that appear to be occurring mostly at night could be due to some allergic reactions (although this would be more generalized and not just limited to her hands and feet) but unless we are able to visualize her rash (which she does not have at present), it would be difficult for us to find out what is causing her symptoms Have advised her to continue taking OTC Benadryl PRN for now Will refer her to [facility] for allergy testing and further evaluation (8) Insomnia: Code(s): G47.00 - Insomnia, unspecified Category: Medical Qualifiers: Insomnia type: unspecified Qualified Code(s): G47.00 - Insomnia, unspecified Plan: Sleep hygiene reinforced She was taking Trazodone 50 mg Q HS PRN in the past but she also self- discontinued the medication - states that she has been doing okay so far since she stopped taking all of her previous prescriptions except for her Pantoprazole (9) Anxiety: Code(s): F41.9 - Anxiety disorder, unspecified Category: Medical Plan: Follow up with psychiatry as scheduled; also continues to follow up with her counselor / therapist regularly (10) Bipolar 2 disorder, major depressive episode: Code(s): F31.81 - Bipolar II disorder Category: Medical Plan: She used to take Lamotrigine 25 mg 2 tablets QD and Risperidone 0.5 mg Q HS but she self-discontinued these a while back and reports no increase in her depression since States that she prefers not to take any medications as much as possible Follow up with psychiatry as scheduled (11) Obesity (BMI 30-39.9): Code(s): E66.9 - Obesity, unspecified Category: Medical Plan: Reinforced diet/exercise as tolerated/lose weight S/P gastric bypass surgery by Dr. Muñoz in 2019 Per request, will try starting her on Zepbound 2.5 mg SQ once a week to help her with weight loss (12) Possible exposure to STD: Code(s): Z20.2 - Contact with and (suspected) exposure to infections with a predominantly sexual mode of transmission Category: Medical Plan: Per request, will also send her again for STD testing Plan Follow up in 3 months Orders: Orders HIV Ab/Ag 03/02/25 Z20.2 - Contact with and (suspected) exposure to infections with a predominantly sexual mode of transmission CT NG by PCR 03/02/25 Z20.2 - Contact with and (suspected) exposure to infections with a predominantly sexual mode of transmission Hepatitis B,C Profile 03/02/25 Z20.2 - Contact with and (suspected) exposure to infections with a predominantly sexual mode of transmission Syphilis Screen 03/02/25 Z20.2 - Contact with and (suspected) exposure to infections with a predominantly sexual mode of transmission Referrals Allergy & Immunology Referral L29.89 - Other pruritus, Z91.09 - Other allergy status, other than to drugs and biological substances Medications: New tirzepatide (weight loss) (Zepbound) for 4 weeks 2.5 mg (0.5 mL) subcut QWEEK 4 weeks 2 mL 0RF E66.9 - Obesity, unspecified
[2025-03-02 10:32] VITALS: BP 102/80; PULSE 99; O2SAT 98; BMI 31.7
--- OUTSIDE RECORDS SUMMARY | 2025-03-02 11:15 | XMS_ITS | Clinical Summary ---
Demographics Address [address] [place] [address] Home Phone Mobile Phone Email Address Email Address Preferred Language en Marital Status Single Latter-Day Affiliation Unknown Race Unknown Ethnic Group or Author Organization [facility] Address [address] [place] [address] Care Team Providers Care Skin Care Technician Name Role Phone Tom Lucero MD Primary Care Provider [phone] Surgical History Surgery Date Site/Laterality Comments OTHER [...] age to complete this topic Meningococcal B Vaccine Aged Out No l onger eligible based on patient's age to complete [...] age to complete this topic Care Teams Skin Care Technician Relationship Specialty Start Date End Date Tom Lucero MD [address] [place] [address] [address] KAE [place] PCP - General Internal Medicine 11/05/21
== END 2025-03-02 11:25 | disposition home or self-care (01) ==
LOC: HO.HMCH 10:16
PROVIDERS: PCP Internal Medicine; Visit Provider Internal Medicine
DX: K21.9 Gastro-esophageal reflux disease without esophagitis (principal); G43.909 Migraine, unspecified, not intractable, without status migrainosus; G93.2 Benign intracranial hypertension; F31.81 Bipolar II disorder; R10.30 Lower abdominal pain, unspecified; K11.5 Sialolithiasis; K59.00 Constipation, unspecified; L29.89 Other pruritus; G47.00 Insomnia, unspecified; F41.9 Anxiety disorder, unspecified; E66.9 Obesity, unspecified; Z20.2 Contact with and (suspected) exposure to infections with a predominantly sexual mode of transmission

== ENCOUNTER 2025-03-15 08:20 | Outpatient (REF) | payer OTHER, SELFPAY ==
--- OUTSIDE RECORDS SUMMARY | 2025-03-15 08:36 | XMS_ITS | Encounter Summary ---
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 Please advise documented in this encounter Plan of Treatment Not on file documented as of this encounter Results * TB INTRADERMAL TEST (03/01/2014 11:17 AM EDT) PPD Induration (PPD) 0mm 03/01/2014 11:1 7 AM EDT Dada Spann MD LAB documented in this encounter Visit Diagnoses Diagnosis Screening examination for pulmonary tuberculosis- Primary documented in this encounter Care Teams Transmission Builder Relationship Specialty Start Date End Date Dada Spann MD [address] [place] [address] PCP - General Internal Medicine 06/23/12 08/19/15 Jet Rosado MD [address] [place] [address] PCP - General Family Practice 08/20/15 11/04/21 Tom Lucero MD [address] [place] [address] PCP - General Internal Medicine 11/05/21 documented as of this encounter
[2025-03-15 09:47] LABS: Appearance Urine Clear; Color Urine Yellow; Glucose Urine UA Negative (Negative); Leukocyte Esterase Urine Negative (Negative); Nitrite Urine Negative (Negative); PH 6.5 (5.0-9.0); Specific Gravity - Urine 1.025 (1.005-1.025); Urine Blood Negative (Negative); Urine Ketones Negative (Negative); Urine Protein Negative (Neg-Trace)
[2025-03-15 10:22] LABS: Alanine Aminotransferase 16 U/L (0-31); Albumin Level 4.3 g/dL (3.5-5.0); Alkaline Phosphatase 33 U/L (39-117); Anion Gap 10 (12-20); Aspartate Amino Transferase 20 U/L (5-31); Bilirubin Total 0.4 mg/dL (0.0-1.0); Blood Urea Nitrogen 16 mg/dL (9-16); C Reactive Protein < 0.10 mg/dL (< or = 0.50); Calcium 9.1 mg/dL (8.4-10.2); Carbon Dioxide 26 mmol/L (22-29); Chloride 108 mmol/L (96-108); Cholesterol 160 mg/dL (<200); Estimated Glomerular Filt Rate > 60; Glucose Fasting 86 mg/dL (60-99); HDL Cholesterol 54 mg/dL (>40); LDL Cholesterol Calculated 98 mg/dL (<100); Potassium 4.6 mmol/L (3.3-5.1); Sodium 139 mmol/L (135-145); Total Protein 7.1 g/dL (6.5-8.0); Triglycerides 40 mg/dL (<150)
[2025-03-15 10:32] LABS: Erythrocyte Sedimentation Rate 15 MM/HR (0-20)
[2025-03-15 17:27] LABS: Rheumatoid Factor < 13.0 IU/mL (<15.0)
[2025-03-16 03:58] LABS: Lyme Abs Screen <0.90 index
[2025-03-20 12:59] LABS: Anti Nuclear Antibody Screen NEGATIVE (NEGATIVE)
== END 2025-03-15 08:21 | disposition home or self-care (01) ==
LOC: HO.LAB 08:20
PROVIDERS: PCP Internal Medicine; Visit Provider Internal Medicine
DX: M25.50 Pain in unspecified joint (principal); E78.00 Pure hypercholesterolemia, unspecified; Z00.00 Encounter for general adult medical examination without abnormal findings; R30.0 Dysuria; M79.10 Myalgia, unspecified site; R53.83 Other fatigue
CPT/HCPCS: 36415; 80053; 80061; 81003; 85652; 86038; 86140; 86431; 86617; 86618

== ENCOUNTER 2025-07-19 08:35 | Outpatient (AMB) | payer OTHER, SELFPAY ==
--- NOTE | 2025-07-19 08:48 | A.OFFVIS_ITS ---
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 Consulting Utility Forester Required: No Information Interpreted: non-clinical & clinical Automobile Club Information Clerk: Automobile Club Information Clerk Present (Licha Navarro PUJA) Accompanied by: Self / Same As Patient Allergies amoxicillin (From AUGMENTIN) Allergy (Unknown, Verified 07/19/25 08:52) HIVES bee pollen (Bee Stings) Allergy (Unknown, Verified 07/19/25 08:52) SWELLING cephalexin (CEPHALEXIN) Allergy (Unknown, Verified 07/19/25 08:52) HIVES clavulanic acid (From AUGMENTIN) Allergy (Unknown, Verified 07/19/25 08:52) HIVES Is last menstrual period known: Yes Last menstrual period: 06/29/25 HPI Comments Details: Presenting for annual exam. No complaints. The patient is attempting getting p regnant, LH surge turned positive few days ago Last Pap/HPV was negative in 02/09 [facility] Medical History Hematoma of left thigh Genetic testing Insomnia Major depression, recurrent GERD without esophagitis Obesity (BMI 30-39.9) Pseudotumor cerebri Migraine Anxiety Skin abscess Surgical History Hx of gastric bypass (~11/30/18) Family History Mother Cervical cancer Family history of stomach cancer Substance use disorder Other Mental health disorder Social History Household Members: Spouse and Children Housing: House Alcohol intake: current Alcohol intake frequency: holidays/special occasions only Patient Tobacco Use Status: Never used Tobacco e-Cigarette/Vaping Use: Never Used Second Hand Smoke Exposure: No Substance Use Type: Marijuana service: No Current occupational status: employed 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[employer], 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 Sexual orientation: Bisexual Gender identity: Female Cognitive needs: No Hearing needs: No Vision needs: No Female Reproductive History Menstrual Age of Menarche: 11 Duration of menses: 6-7 days Date of last menstrual period: 06/29/25 Review of Systems Const All systems reviewed & are unremarkable except as noted in HPI and below Card Reports as per HPI Resp Reports as per HPI GI Reports as per HPI and Reports no additional complaints Reports as per HPI Physical Exam Vital Signs: Last Vital Signs BP 118/74 07/19/25 08:49 BMI result Body Mass Index 31.9 Const General: cooperative, healthy appearing and comfortable Chest Chest palpation & inspection: normal inspection of the chest and normal palpation of entire chest wall Breast/axilla inspection: normal inspection of the breasts and normal inspection of the axillae Breast/axilla palpation: normal palpation of the breasts, normal palpation of the axillae and no axillary lymphadenopathy Resp Effort & Inspection: normal respiratory effort Auscultation: clear to auscultation bilaterally Percussion: percussion normal Cardio Palpation: normal PMI Rate: regular rate Rhythm: regular rhythm Heart sounds: no murmurs and no rubs Peripheral pulses: Peripheral pulses 2+ throughout GI Inspection: Yes normal to inspection Palpation (GI): Soft to palpation, nontender, no guarding, not rigid and No hepatosplenomegaly present Percussion: Yes normal to percussion Auscultation: normal bowel sounds Rectal Exam - Female: deferred General: Yes bladder normal to palpation External Female Exam: No lesion Speculum Exam - Vagina: normal appearance of the vagina, normal palpation, normal vaginal discharge and not erythematous Speculum Exam - Cervix: normal appearance of the cervix and normal palpation Bimanual exam- vagina & uterus: normal bimanual exam, normal palpation, uterine size normal, bladder normal to palpation, consistency normal and normal palpation Bimanual Exam- Adnexa, other: normal adnexae, no masses and no tenderness Results AMB Test Urine AMB Test Urine Negative Last Edit by Licha Navarro CMA on 09:06 Assessment & Plan Assessment & Plan (1) Well woman exam with routine gynecological exam: Code(s): Z01.419 - Encounter for gynecological examination (general) (routine) without abnormal findings Category: Medical Plan: UPT done in the office was negative. vitamin 1 tablet p.o. q.d. recommended since the patient is attempting conception Cotesting not indicated this year. Counseled the patient about the recommended dietary allowance of 1000 mg of Ca lcium & 600 IU of vitamin D. The patient was instructed to perform monthly self-breast exams and to schedule an annual exam in a year; All questions answered and the patient verbalized understanding. Instructed the patient to schedule annual exam in a year Orders: Orders AMB HCG Urine Test Today Z32.02 - Encounter for test, result negative Coding Level of Care Code Est Pt Prev Care 18-39y([id number]) Diagnoses Well woman exam with routine gynecological exam Z01.419
[2025-07-19 08:49] VITALS: BP 118/74; BMI 31.9
--- OUTSIDE RECORDS SUMMARY | 2025-07-19 09:05 | XMS_ITS | Clinical Summary ---
Demographics Address [address] [place] [address] Home Phone Mobile Phone Email Address Email Address Preferred Language en Marital Status Single Pentecostalism Affiliation Unknown Race Unknown Ethnic Group or Author Organization [facility] ity Address [address] [place] [address] Care Team Providers Care Manager Review Name Role Phone Tom Lucero MD Primary Care Provider [phone] Surgical History Surgery Date Site/Laterality Comments OTHER [...] Cervical Cancer Screening: P ap Smear 2014 HPV Vaccines (1 - 3-dose SCD M series) 2020 Cholesterol Screening (Lipid Panel) 09/27/2022 HIV Screening 09/27/2022 Hepatitis C Screening 09/27/2022 Social Influencers of Health Screening 09/27/2022 Depression Screening 10/19/2024 DTaP,Tdap,and Td Vaccines (3 - Td or Tdap) 11/01/2024 11/01/2014, 10/25/2012 COVID-19 Vaccine (1 - 2023-2 5 season) 2025 Influenza Vaccine (#1) 2025 09/01/2014 RSV Immunization Adult Patients (1 - 1-dose 75+ series) 2068 HIB Vaccines Aged Out No longer eligi [...] 5 Years) and At-Risk Patients (6 to 49 Years) Aged Out No longer eligible b ased on patient's age to complete this topic RSV Immunization Patients Under 20 months Aged Out No longer eligible b ased on patient's age to complete this topic Varicella Vaccines Aged Out No longer eligible based on patient's age to complete this topic Care Teams Manager Review Relationship Specialty Start Date End Date Tom Lucero MD [address] [place] [address] [address] KAE [place] PCP - General Internal Medicine 11/05/21
== END 2025-07-19 09:11 | disposition home or self-care (01) ==
LOC: HO.HWS 08:35
PROVIDERS: PCP Internal Medicine; Visit Provider Obstetrics & Gynecology
DX: Z01.419 Encounter for gynecological examination (general) (routine) without abnormal findings (principal); Z32.02 Encounter for pregnancy test, result negative
CPT/HCPCS: 99395; 99459

== ENCOUNTER → 2025-07-19 08:35 | Outpatient (BNVA) | payer OTHER, SELFPAY | PROVIDERS: PCP Internal Medicine; Visit Provider Obstetrics & Gynecology | DX: Z01.419 Encounter for gynecological examination (general) (routine) without abnormal findings (principal); Z32.02 Encounter for pregnancy test, result negative | CPT/HCPCS: 81025; 96127 ==

== ENCOUNTER 2025-07-19 15:33 | Outpatient (AMB) | payer OTHER, SELFPAY ==
[2025-07-19 15:40] VITALS: BP 124/86; PULSE 61; TEMP 36.2; O2SAT 100; BMI 32.7
--- NOTE | 2025-07-19 15:40 | A.OFFPC_ITS ---
Vital Signs 07/19/25 15:40 Height 5 ft 3 in Weight 184 lb 6 oz BMI 32.7 BP 124/86 Blood Pressure Location Lt brachial Position Sitting Pulse 61 Pulse Source Pulse Oximeter Temp 97.1 F Temp Source Temporal Artery Scan Pulse Oximetry (%) 100 Oxygen Delivery Method Room Air Intake Visit Reasons: Go over Disability form Allergies amoxicillin (From AUGMENTIN) Allergy (Unknown, Verified 07/19/25 15:58) HIVES bee pollen (Bee Stings) Allergy (Unknown, Verified 07/19/25 15:58) SWELLING cephalexin (CEPHALEXIN) Allergy (Unknown, Verified 07/19/25 15:58) HIVES clavulanic acid (From AUGMENTIN) Allergy (Unknown, Verified 07/19/25 15:58) HIVES Medication List - Last Reconciled 07/19/25 by Tom Lucero MD pantoprazole 40 mg PO DAILY 90 days Tobacco use date assessed: 07/19/25 Dental Screening Dental Screen Date: 07/19/25 Did you have a dental visit in the last 12 months?: No Did you have a dental problem in the last 6 months where you did not have access to dental care?: No Was dental information given to patient?: No HPI Go over Disability form HPI Details Patient comes in today mainly to go over the questions to complete her FMLA application States that she just started a new job in has already taken off 19 days from work this past month States that she has significant issues with anxiety and bipolar depression needs to take time off from work whenever her condition flares up She used to see a psychiatrist but has not done so in the past couple of years and is also currently not on any medication for her psychiatric issues She denies any headaches or dizziness Denies any chest pains, no shortness of breath No nausea/vomiting, no abdominal pain No change in bowel habits noted She is also requesting to have a test done here in the office today an d needs her Pantoprazole Rx refilled as well PFSH Medical History Hematoma of left thigh Genetic testing Insomnia Major depression, recurrent GERD without esophagitis Obesity (BMI 30-39.9) Pseudotumor cerebri Migraine Anxiety Skin abscess Surgical History Hx of gastric bypass (~11/30/18) Family History Mother Cervical cancer Family history of stomach cancer Substance use disorder Other Mental health disorder Social History Household Members: Spouse and Children Housing: House Alcohol intake: current Alcohol intake frequency: holidays/special occasions only Patient Tobacco Use Status: Never used Tobacco e-Cigarette/Vaping Use: Never Used Second Hand Smoke Exposure: No Substance Use Type: Marijuana service: No Current occupational status: employed 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 1. Little interest or pleasure in doing things: not at all 2. Feeling down, depressed, or hopeless: not at all 3. Trouble falling or staying asleep, or sleeping too much: not at all 4. Feeling tired or having little energy: not at all 5. Poor appetite or overeating: not at all 6. Feeling bad about yourself - or that you are a failure or have let yourself or your family down: not at all 7. Trouble concentrating on things, such as reading the newspaper or watching television: not at all 8. Moving or speaking so slowly that other people could have noticed. Or the opposite - being so fidgety or restless that you have been moving around a lot more than usual: not at all 9. Thoughts that you would be better off or of hurting yourself in some way: not at all Total score: 0 Depression Screening Interpretation: Negative Depression Screening Done: Yes 95785 - PHQ-9 Billing: Yes Source: Developed by Drs. Lester Martinez, Janis Grace, Jaspreet Harding and colleagues, with an educational jersey from [employer]. Thrive Questionnaire Date Thrive assessed: 03/02/25 I am a: Patient What is your living situation today?: I have a steady place to live Within the past 12 months, did the food you bought not last and you didn't have the money to get more?: Never true Within the past 12 months, did you worry whether your food would run out before you got money to buy more?: Never true Do you have trouble paying for medicines?: No Do you have trouble getting transportation to medical appointments?: No Do you have trouble paying your heating and electricity bill?: No Do you have trouble taking care of your child, family member or friend?: No Do you have trouble with day-to-day activities such as bathing, preparing meals, shopping, managing finances, etc.?: No Are you currently unemployed and looking for a job?: No Are you interested in more education?: No Please select the resources that you would like help with: None Currently or been in a relationship where the following occur: No concerns reported THRIVE Score: 0 AUDIT C Alcohol Use Questionnaire (AUDIT-C) 1. How often do you have a drink containing alcohol?: 2-4 times a month 2. How many drinks containing alcohol do you have on a typical day when you are drinking?: 1 or 2 3. How often do you have six or more drinks on one occasion?: Never Total Score: 2 Score Reviewed/Action Taken: Yes JOVANNA-7 AMB Questionnaire JOVANNA-7 Date JOVANNA - 7 assessed: 03/02/25 Feeling nervous, anxious, or on edge: 0 = Not at all Not being able to stop or control worryin = Not at all Worrying too much about different things: 0 = Not at all Trouble relaxin = Several days Being so restless that it is hard to sit still: 0 = Not at all Becoming easily annoyed or irritable: 1 = Several days Feeling afraid as if something awful might happen: 0 = Not at all Total JOVANNA-7 score (0-4 normal; 5-9 mild; 10-14 moderate; 15-21 severe): 2 Source: Developed by Drs. Lester Martinez, Janis Grace, Jaspreet Harding and colleagues, with an educational jersey from [employer]. Review of Systems Const Denies chills, Reports fatigue, Denies fever(s) and Denies headache(s) ENT Denies dysphagia, Denies dizziness, Denies otalgia, Denies headache(s), Denies neck pain, Denies odynophagia and Denies sore throat Card Denies chest pain, Denies irregular heart rhythm, Denies palpitations and Denies dyspnea Resp Denies chest congestion, Denies cough, Denies dyspnea and Denies wheezing GI Reports abdominal pain (on and off, over the lower abdomen), Reports constipation (alternating with diarrhea), Denies dysphagia, Denies heartburn, Reports diarrhea (alternating with constipation), Denies nausea, Denies odynophagia and Denies vomiting Denies difficulty voiding, Denies dysuria and Denies urinary urgency Musc Denies back pain, Denies arthralgias and Denies neck pain Skin/Breast Denies rash Neuro Denies dizziness, Denies headache(s) and Denies paresthesias Psych Reports anxiety and Reports depression Endo Reports fatigue and Denies palpitations Clifton/Lymph Denies easy bruising Aller/Immun Denies wheezing Physical exam (Primary Care) Vital Signs: Last Vital Signs Temp 97.1 F 07/19/25 15:40 Pulse 61 07/19/25 15:40 BP 124/86 07/19/25 15:40 Pulse Ox 100 07/19/25 15:40 Oxygen Delivery Method Room Air 07/19/25 15:40 BMI result Body Mass Index 32.7 Tobacco/Smoking Status: Tobacco use Status Tobacco use date assessed 07/19/25 07/19/25 15:44 Patient Tobacco Use Status Never used Tobacco 07/19/25 15:44 e-Cigarette/Vaping Use Never Used 07/19/25 15:44 PHQ-9: PHQ-9 Score PHQ-9: Total score 0 07/19/25 16:01 Depression Screening Interpretation: Negative Thrive Assessment: Date of Thrive Assessment Date Thrive assessed 03/02/25 07/19/25 15:44 Currently or been in a relationship where the following occur: No concerns reported Const General: no acute distress and alert HENMT Throat: Yes posterior oropharynx normal and Yes tonsils normal (no TP congestion) Neck Neck: Yes supple and No lymphadenopathy Thyroid: Thyroid normal Resp Auscultation: clear to auscultation bilaterally, no crackles, no rales and no wheezes Cardio Rate: regular rate Rhythm: regular rhythm Heart sounds: no murmurs GI Palpation (GI): Soft to palpation and nontender Auscultation: normal bowel sounds General: Yes no CVA tenderness Back/Spine/Pelvis Back: no CVA tenderness Thoracic/Lumbar Spine: No lumbar spinal tenderness Skin Rashes: no rashes (no rashes noted on her hands and feet at present) Extrem General: Yes no clubbing, cyanosis or edema Results AMB Test Urine AMB Test Urine Negative Last Edit by Licha Navarro CMA on 09:06 Coding Level of Care Code Est Pt Level 4 (74861) Diagnoses Anxiety F41.9 Bipolar 2 disorder, major depressive episode F31.81 Migraine without status migrainosus, not intractable, unspecified migraine type G43.909 Migraine type: unspecified Status migrainosus presence: without status migrainosus Intractability: not intractable Pseudotumor cerebri G93.2 GERD without esophagitis K21.9 Sialolithiasis K11.5 Constipation, unspecified constipation type K59.00 Constipation type: unspecified constipation type Insomnia, unspecified type G47.00 Insomnia type: unspecified Obesity (BMI 30-39.9) E66.9 Additional Codes PHQ-9 - 72651 - PHQ-9 Billing: Yes ([id number]) Assessment & Plan Assessment & Plan (1) Anxiety: Code(s): F41.9 - Anxiety disorder, unspecified Category: Medical Plan: Patient's FMLA form discussed and completed with patient Will refer her to psychiatry THERESA Will start her in the meantime on Sertraline 50 mg QD (2) Bipolar 2 disorder, major depressive episode: Code(s): F31.81 - Bipolar II disorder Category: Medical Plan: She used to take Lamotrigine 25 mg 2 tablets QD and Risperidone 0.5 mg Q HS but she self-discontinued these a while back States that she prefers not to take any medications as much as possible but now admits that she needs help Will start her oN Sertraline 50 mg QD and Quetiapine ER 50 mg Q PM Will refer her again to psychiatry for further management (3) Migraine: Code(s): G43.909 - Migraine, unspecified, not intractable, without status migrainosus Category: Medical Qualifiers: Migraine type: unspecified Status migrainosus presence: without status migrainosus Intractability: not intractable Qualified Code(s): G43.909 - Migraine, unspecified, not intractable, without status migrainosus Plan: Controlled She was previously taking Topiramate 25 mg once a day at bedtime and Amerge 2.5 mg 1 tablet once a day as needed as instructed but she stopped taking these on her own a while ago as she does not want to take any prescription medications regularly Follow-up with Neurology at [facility] as scheduled (4) Pseudotumor cerebri: Code(s): G93.2 - Benign intracranial hypertension Category: Medical Plan: Follow up with [facility] Neurology as scheduled (5) GERD without esophagitis: Code(s): K21.9 - Gastro-esophageal reflux disease without esophagitis Category: Medical Plan: Dietary restrictions reinforced Continue Pantoprazole 40 mg QD - Rx refilled S/P EGD at [facility] in November 11, 2021 and had Bx and testing done for H. pylori, which were reportedly negative Follow up with GI as scheduled (6) Sialolithiasis: Code(s): K11.5 - Sialolithiasis Category: Medical Plan: Reports (+) Hx of recurrent salivary gland stones, which she states she has to clear out often She was previously referred to ENT for further evaluation and management and was supposedly recommended to try using a Water Pik regularly to see if this can be controlled better Follow up with ENT as scheduled or as needed (7) Constipation: Code(s): K59.00 - Constipation, unspecified Category: Medical Qualifiers: Constipation type: unspecified constipation type Qualified Code(s): K59.00 - Constipation, unspecified Plan: Patient is encouraged again to increase her oral fluids and dietary fiber intake Continue Miralax 17 gm QD (8) Insomnia: Code(s): G47.00 - Insomnia, unspecified Category: Medical Qualifiers: Insomnia type: unspecified Qualified Code(s): G47.00 - Insomnia, unspecified Plan: Sleep hygiene reinforced She was taking Trazodone 50 mg Q HS PRN in the past but she also self- discontinued the medication - states that she has been doing okay so far since she stopped taking all of her previous prescriptions except for her Pantoprazole (9) Obesity (BMI 30-39.9): Code(s): E66.9 - Obesity, unspecified Category: Medical Plan: Reinforced diet/exercise as tolerated/lose weight S/P gastric bypass surgery by Dr. Muñoz in 2019 Per request, we tried starting her on Zepbound 2.5 mg SQ once a week to help her with weight loss but Rx was denied by her insurance Plan Abner cortez up in 3 months Orders: Referrals Psychiatry Referral F31.81 - Bipolar II disorder, F41.0 - Panic disorder [episodic paroxysmal anxiety], F41.9 - Anxiety disorder, unspecified Medications: New sertraline 50 mg PO DAILY 30 tabs 2RF 30 days quetiapine ER 50 mg PO BEDTIME 30 tabs 2RF 30 days Changed From pantoprazole 40 mg PO DAILY 90 days 90 tabs 1RF To pantoprazole 40 mg PO DAILY 30 tabs 5RF 30 days
--- OUTSIDE RECORDS SUMMARY | 2025-07-19 16:21 | XMS_ITS | Encounter Summary ---
Author Organization [facility] Address [address] [place] [address] Care Team Providers Care Steamer Operator Name Role Phone Dada Spann MD Primary Care Provider [phone] Jet Rosado MD Primary Care Provider Unav ailable Tom Lucero MD Primary Care Provider Unava ilable Encounter Details Date Type Department Care Team Description 09/16/2014 [facility] Medical Records [address] [place] [id number] Janis Jane CNM Social History Tobacco Use [...] on filedocumented in this encounter Care Teams Steamer Operator Relationship Specialty Start Date End Date Dada Spann MD [address] [place] [id number] PCP - General Internal Medicine 06/23/12 08/19/15 Jet Rosado MD [address] [place] [address] [id number] PCP - General Family Practice 08/20/15 11/04/21 Tom Lucero MD [address] [place] [address] 07[address] PCP - General Internal Medicine 11/05/21 documented as of this encounter
--- OUTSIDE RECORDS SUMMARY | 2025-07-19 16:21 | XMS_ITS | Encounter Summary ---
Author Organization [facility] Address [address] [place] [address] Care Team Providers Care Auto Parker Name Role Phone Dada Spann MD Primary Care Provider [phone] Jet Rosado MD Primary Care Provider Unav ailable Tom Lucero MD Primary Care Provider Unava ilable Encounter Details Date Type Department Care Team Description 05/12/2014 [facility] Medical Records [address] [place] [address] Giovany Chery MD Social History Tobacco Use [...] on filedocumented in this encounter Care Teams Auto Parker Relationship Specialty Start Date End Date Dada Spann MD [address] [place] [id number] PCP - General Internal Medicine 06/23/12 08/19/15 Jet Rosado MD [address] [place] [phone] PCP - General Family Practice 08/20/15 11/04/21 Tom Lucero MD [address] [place] [id number] PCP - General Internal Medicine 11/05/21 documented as of this encounter
--- OUTSIDE RECORDS SUMMARY | 2025-07-19 16:21 | XMS_ITS | Encounter Summary ---
Author Organization [facility] Address [address] [place] [address] Care Team Providers Care Discovery Guide Name Role Phone Jet Rosado MD Primary Care Provider Unav ailable Tom Lucero MD Primary Care Provider Unava ilable Reason for Visit * Reason Onset Date Comments APPOINTMENT 09/06/2021 Encounter Details Date Type Department Care Team Description 09/06/2021 Telephone Gastroenterology - [address] [place] [address] Jerilyn Gagnon DScPAS APPOINTMENT Social [...] EST Received referral from pts pcp at [facility] to schedule a consult DX - Epigastric pain and Abdominal pain. Called pt no answer lvm. Referral in accordion checkout. documented in this encounter Plan of Treatment Not on file documented as of this encounter Visit Diagnoses Not on filedocumented in this encounter Care Teams Discovery Guide Relationship Specialty Start Date End Date Jet Rosado MD PCP - General Family Practice 08/20/15 11/04/21 Tom Lucero MD PCP - General Internal Medicine 11/05/21 documented as of this encounter
--- OUTSIDE RECORDS SUMMARY | 2025-07-19 16:21 | XMS_ITS | Encounter Summary ---
Author Organization [facility] Address [address] [place] [address] Care Team Providers Care Leno Sewer Name Role Phone Dada Spann MD Primary Care Provider [phone] Jet Rosado MD Primary Care Provider Unav ailable Tom Lucero MD Primary Care Provider Unava ilable Reason for Visit * Reason Onset Date Comments TEST RESULTS 03/21/2014 Encounter Details Date Type Department Care Team Description 03/21/2014 Telephone OBGYN - [facility] [address] [place] [address] Mitul Galicia CNM TEST RESULTS Social History [...] on filedocumented in this encounter Care Teams Leno Sewer Relationship Specialty Start Date End Date Dada Spann MD [address] [place] [id number] PCP - General Internal Medicine 06/23/12 08/19/15 Jet Rosado MD [address] [place] [id number] PCP - General Family Practice 08/20/15 11/04/21 Tom Lucero MD [address] [place] [address] [id number] PCP - General Internal Medicine 11/05/21 documented as of this encounter
--- OUTSIDE RECORDS SUMMARY | 2025-07-19 16:21 | XMS_ITS | Encounter Summary ---
Author Organization [facility] Address [address] [place] [address] Care Team Providers Care Group Sales Coordinator Name Role Phone Dada Spann MD Primary Care Provider [phone] Jet Rosado MD Primary Care Provider Unav ailable Tom Lucero MD Primary Care Provider Unava ilable Encounter Details Date Type Department Care Team Description 11/23/2014 [facility] Medical Records [address] [place] [address] Social History Tobacco Use Types Packs/Day Years [...] on filedocumented in this encounter Care Teams Group Sales Coordinator Relationship Specialty Start Date End Date Dada Spann MD [address] [place] [phone] PCP - General Internal Medicine 06/23/12 08/19/15 Jet Rosado MD [address] [place] [phone] PCP - General Family Practice 08/20/15 11/04/21 Tom Lucero MD [address] [place] [phone] PCP - General Internal Medicine 11/05/21 documented as of this encounter
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
--- OUTSIDE RECORDS SUMMARY | 2025-07-19 16:21 | XMS_ITS | Encounter Summary ---
Author Organization [facility] Address [address] [place] [address] Care Team Providers Care Relish Blender Name Role Phone Dada Spann MD Primary Care Provider [phone] Jet Rosado MD Primary Care Provider Unav ailable Tom Lucero MD Primary Care Provider Unava ilable Reason for Visit * Reason Onset Date Comments Bleeding During 06/03/2014 Encounter Details Date Type Department Care Team Description 06/03/2014 Telephone Adult Medicine [address] [address] Dada Spann MD [address] [place] [address] Bleeding During Social History Tobacco Use Types [...] on filedocumented in this encounter Care Teams Relish Blender Relationship Specialty Start Date End Date Dada Spann MD [address] [place] [phone] PCP - General Internal Medicine 06/23/12 08/19/15 Jet Rosado MD [address] [place] [address] [phone] PCP - General Family Practice 08/20/15 11/04/21 Tom Lucero MD [address] [place] [phone] PCP - General Internal Medicine 11/05/21 documented as of this encounter
--- OUTSIDE RECORDS SUMMARY | 2025-07-19 16:21 | XMS_ITS | Clinical Summary ---
Author Organization [facility] Address [address] [place] [address] Care Team Providers Care Fire Prevention Forester Name Role Phone Tom Lucero MD Primary [...] normal 05/04/2014 01/01/2015 Overview: 1. [facility] site: [place] 2. Delivery site: [facility] 3. Blood type: B+ 4. Genetic screening: YES Date: 05/16/14 at 8:30 [facility] Result: 1st screen neg (DS & Tri [...] Due Influenza (>6 Months) Split Preservative Free Leoripj-Uaryk-Ztcwknec + 10/27/2012 Ggmps-Pbjud-Qutehhch + 10/27/2012 PPD-RBMG 05/15/2015,03/01/2014 Pzhnheo-Ekdvm-Zjxklkzi + 10/27/2012 Tdap 11/01/2014,10/25/2012 Varicella Titre-Positive + [...] 70 11/06/2021 11:20 AM EST Temperature 36.3 C (97.3 F) 11/01/2014 8:21 AM EST Respiratory Rate 16 05/10/2015 1:15 PM EDT [...] BASELINE HEALTH EXAM 18-39 05/10/202005/10, 12/19/2013, 10/25/2012 BMI CHECK/ADVISE 10/19/2024 05/10/2015, 12/19/2013 DEPRESSION SCREENING/FOLLOWUP 10/19/2024, 03/16/2015, 03/16/2015, Additional history exists SOCIAL NEEDS SCREENING 10/19/2024 DTAP/TDAP/TD (3 - Td or Tdap) 11/01/2024 11/01/2014, 10/25/2012 INFLUENZA (#1) 2025 09/01/2014 PNEUMOCOCCAL VACCINE FOR HIG H RISK PATIENTS (#1) 2058 Care Teams Fire Prevention Forester Relationship Specialty Start Date End Date Tom Lucero MD PCP - General Internal Medicine 11/05/21
--- OUTSIDE RECORDS SUMMARY | 2025-07-19 16:21 | XMS_ITS | Encounter Summary ---
Author Organization [facility] Address [address] [place] [address] Care Team Providers Care Web Development Instructor Name Role Phone Dada Spann MD Primary Care Provider [phone] Jet Rosado MD Primary Care Provider Unav ailable Tom Lucero MD Primary Care Provider Unava ilable Encounter Details Date Type Department Care Team Description 05/12/2014 [facility] Medical Records [address] [place] [address] Social History Tobacco Use Types Packs/Day Years [...] on filedocumented in this encounter Care Teams Web Development Instructor Relationship Specialty Start Date End Date Dada Spann MD [address] [place] [id number] PCP - General Internal Medicine 06/23/12 08/19/15 Jet Rosado MD [address] [place] [address] [phone] PCP - General Family Practice 08/20/15 11/04/21 Tom Lucero MD [address] [place] [phone] PCP - General Internal Medicine 11/05/21 documented as of this encounter
--- OUTSIDE RECORDS SUMMARY | 2025-07-19 16:21 | XMS_ITS | Encounter Summary ---
Author Organization [facility] Address [address] [place] [address] Care Team Providers Care Insole And Outsole Splitter Name Role Phone Dada Spann MD Primary Care Provider [phone] Jet Rosado MD Primary Care Provider Unav ailable Tom Lucero MD Primary Care Provider Unava ilable Encounter Details Date Type Department Care Team Description 06/21/2014 Leather Grainer Report Medical Records [address] [place] [id number] Giovany Chery MD Social History Tobacco Use [...] on filedocumented in this encounter Care Teams Insole And Outsole Splitter Relationship Specialty Start Date End Date Dada Spann MD [address] [place] [id number] PCP - General Internal Medicine 06/23/12 08/19/15 Jet Rosado MD [address] [place] [phone] PCP - General Family Practice 08/20/15 11/04/21 Tom Lucero MD [address] [place] [id number] PCP - General Internal Medicine 11/05/21 documented as of this encounter
--- OUTSIDE RECORDS SUMMARY | 2025-07-19 16:21 | XMS_ITS | Encounter Summary ---
Author Organization [facility] Address [address] [place] [address] Care Team Providers Care Control Room Technician Name Role Phone Tom Lucero MD Primary Care Provider Robbin jaeger Encounter Details Date Type Department Care Team Description 12/19/2021 Telephone Gastroenterology - [address] [place] [address] Jerilyn Gagnon DScPAS Social History [...] on filedocumented in this encounter Care Teams Control Room Technician Relationship Specialty Start Date End Date Tom Lucero MD PCP - General Internal Medicine 11/05/21 documented as of this encounter
--- OUTSIDE RECORDS SUMMARY | 2025-07-19 16:21 | XMS_ITS | Encounter Summary ---
Author Organization [facility] Address [address] [place] [address] Care Team Providers Care Chair Inspector And Leveler Name Role Phone Jet Rosado MD Primary Care Provider Tom Thomas MD Primary Care Provider Robbin jaeger Encounter Details Date Type Department Care Team Description 08/16/2021 Team Physician Report Medical Records [address] [place] [address] Niki Mckoy, DEBURRING AND TOOLING MACHINE OPERATOR Social History Tobacco Use Types Packs/Day Years [...] on filedocumented in this encounter Care Teams Chair Inspector And Leveler Relationship Specialty Start Date End Date Jet Rosado MD PCP - General Family Practice 08/20/15 11/04/21 Tom Lucero MD PCP - General Internal Medicine 11/05/21 documented as of this encounter
--- OUTSIDE RECORDS SUMMARY | 2025-07-19 16:21 | XMS_ITS | Encounter Summary ---
Author Organization [facility] Address [address] [place] [address] Care Team Providers Care Board Liner Operator Name Role Phone Dada Spann MD Primary Care Provider [phone] Jet Rosado MD Primary Care Provider Unav ailable Tom Lucero MD Primary Care Provider Unava ilable Encounter Details Date Type Department Care Team Description 05/13/2014 [facility] Medical Records [address] [place] [address] Social History Tobacco Use Types Packs/Day Years [...] on filedocumented in this encounter Care Teams Board Liner Operator Relationship Specialty Start Date End Date Dada Spann MD [address] [place] [id number] PCP - General Internal Medicine 06/23/12 08/19/15 Jet Rosado MD [address] [place] [id number] PCP - General Family Practice 08/20/15 11/04/21 Tom Lucero MD [address] [place] [address] PCP - General Internal Medicine 11/05/21 documented as of this encounter
--- OUTSIDE RECORDS SUMMARY | 2025-07-19 16:21 | XMS_ITS | Encounter Summary ---
Author Organization [facility] Address [address] [place] [address] Care Team Providers Care Software Validation Technician Name Role Phone Dada Spann MD Primary Care Provider Jet Rosado MD Primary Care Provider Unav ailable Tom Lucero MD Primary Care Provider Unava ilable Encounter Details Date Type Department Care Team Description 04/20/2015 Night Triage Doc Medical Records [address] [place] [id number] Abstract, Provider Social History Tobacco Use Types [...] on filedocumented in this encounter Care Teams Software Validation Technician Relationship Specialty Start Date End Date Dada Spann MD [address] [place] [phone] PCP - General Internal Medicine 06/23/12 08/19/15 Jet Rosado MD [address] [place] [address] PCP - General Family Practice 08/20/15 11/04/21 Tom Lucero MD [address] [place] [phone] PCP - General Internal Medicine 11/05/21 documented as of this encounter
--- OUTSIDE RECORDS SUMMARY | 2025-07-19 16:21 | XMS_ITS | Encounter Summary ---
Author Organization [facility] Address [address] [place] [address] Care Team Providers Care Injector Assembler Name Role Phone Dada Spann MD Primary Care Provider Jet Rosado MD Primary Care Provider Unav ailable Tom Lucero MD Primary Care Provider Unava ilable Reason for Visit * Reason Onset Date Comments Eye Exam 12/22/2012 Encounter Details Date Type Department Care Team Description 12/22/2012 Telephone Eye Services-[address] [address] Naomi Ocampo, CHARLES Eye Exam Social History [...] on filedocumented in this encounter Care Teams Injector Assembler Relationship Specialty Start Date End Date Dada Spann MD [address] [place] [id number] PCP - General Internal Medicine 06/23/12 08/19/15 Jet Rosado MD [address] [place] [address] PCP - General Family Practice 08/20/15 11/04/21 Tom Lucero MD [address] [place] [address] PCP - General Internal Medicine 11/05/21 documented as of this encounter
== END 2025-07-19 16:16 | disposition home or self-care (01) ==
LOC: HO.HMCH 15:34
PROVIDERS: PCP Internal Medicine; Visit Provider Internal Medicine
DX: G43.909 Migraine, unspecified, not intractable, without status migrainosus (principal); F31.81 Bipolar II disorder; E66.9 Obesity, unspecified; Z68.32 Body mass index [BMI] 32.0-32.9, adult; F41.9 Anxiety disorder, unspecified; G93.2 Benign intracranial hypertension; K21.9 Gastro-esophageal reflux disease without esophagitis; K11.5 Sialolithiasis; K59.00 Constipation, unspecified; G47.00 Insomnia, unspecified

== ENCOUNTER 2025-09-17 17:05 | Emergency (ER) | payer OTHER, SELFPAY ==
--- NOTE | ~2025-09-17 | US_ITS ---
CLINICAL HISTORY: vaginal spotting US OB 1st trimester transabdominal (limited exam; cervical /placenta only). Comparison: None provided Findings: Single intrauterine . CRL: N/A cm. EGA: . JATINDER: N/A. Previously established gestational age: N/A. Normal yolk sac. Cardiac activity: 169 bpm. No subchorionic bleed. Placenta is anterior. Cervix is closed. Right ovary 2 x 3.4 x 2.5 cm. Left ovary 2.5 x 3.2 x 2.9 cm. Moreover, heterogeneous hypoechoic focus, 2.3 x 1.6 x 1.9 cm; most likely corpus luteum. IMPRESSION: Single viable intrauterine identified. This document has been electronically signed by: Hardeep Kenny MD on 09/17/2025 19:42:51
[2025-09-17 17:14] VITALS: BP 130/57; PULSE 71; RESP 16; TEMP 36.7; O2SAT 98; BMI 33.2
--- NOTE | 2025-09-17 17:16 | ED_ITS ---
HPI - General Adult General Chief complaint: OB Stated complaint: Issues Time Seen by Provider: 09/17/25 21:42 Related Data Previous Rx's ?Medication ?Instructions ?Recorded pantoprazole 40 mg tablet,delayed 40 mg PO DAILY 30 da ys #30 tabs 07/19/25 release quetiapine 50 mg tablet,extended 50 mg PO BEDTIME 30 d ays #30 tabs 07/19/25 release 24 hr sertraline 50 mg tablet 50 mg PO DAILY 30 days #30 t abs 07/19/25 Allergies Allergy/AdvReac Type Severity Reaction Status Date / Time amoxicillin (From AUGMENTIN) Allergy Unknown HIVES Verified 09/17/25 17:16 bee pollen (Bee Stings) Allergy Unknown SWELLING Verified 09/17/25 17:16 cephalexin (CEPHALEXIN) Allergy Unknown HIVES Verified 09/17/25 17:16 clavulanic acid (From Allergy Unknown HIVES Verified 09/17/25 17:16 AUGMENTIN) PMFSH Past Medical History Medical History Hematoma of left thigh Genetic testing Insomnia Major depression, recurrent GERD without esophagitis Obesity (BMI 30-39.9) Pseudotumor cerebri Migraine Anxiety Skin abscess Surgical History Hx of gastric bypass (~11/30/18) Family History Family History Mother Cervical cancer Family history of stomach cancer Substance use disorder Other Mental health disorder Social History Social History Household Members: Spouse and Children Housing: House Alcohol intake: current Alcohol intake frequency: holidays/special occasions only Patient Tobacco Use Status: Never used Tobacco e-Cigarette/Vaping Use: Never Used Second Hand Smoke Exposure: No Substance Use Type: Marijuana Advance Directives: No Advance Directives Information Provided: No Do you have a plan to hurt others: No Plan service: No Current occupational status: employed 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 Please refer to detailed history, exam, evaluation, and management by primary provider. today began with pink spotting with mucus only when wiping. Lower abdominal cramping. No clots. Currently being treated for UTI. Labs and US ordered. Medical Decision Making Lab Data 09/17/25 17:33 09/17/25 17:33 Labs: Lab Results 09/17/25 09/17/25 Range/Units 17:33 20:33 WBC 6.9 (4.8-10.8) X10*3/uL RBC 3.83 L (4.20-5.50) X10*6/uL Hgb 11.1 L (12.0-16.0) g/dl Hct 34.1 L (37.0-47.0) % MCV 89.0 (80.0-98.0) fL MCH 29.0 (27.0-33.0) pg MCHC 32.6 (31.0-35.0) g/dl RDW 13.4 (11.0-16.0) % Plt Count 204 (160-400) X10*3/uL MPV 11.2 (9.4-12.3) fL Immature Gran % (Auto) 0.3 (0.0-0.4) % Neut % (Auto) 65.5 (45-73) % Lymph % (Auto) 21.1 (20-40) % [place] % (Auto) 9.3 (2-11) % Eos % (Auto) 2.9 (0-4) % Baso % (Auto) 0.9 (0-2) % Lymph # (Auto) 1.5 (1.2-4.9) X10*3/uL [place] # (Auto) 0.6 (0.1-1.2) X10*3/uL Eos # (Auto) 0.2 (0.0-0.4) X10*3/uL Baso # (Auto) 0.1 (0.0-0.2) X10*3/uL Abs Immat Gran (auto) 0.02 (0.00-0.03) X10*3/uL Absolute Neuts (auto) 4.5 (2.0-8.3) x10*3/uL Absolute Nucleated RBC 0.000 (0.0-0.012) X10*3/uL Nucleated RBC % (auto) 0.0 (0.0-0.2) /100WBC Sodium 139 (135-145) mmol/L Potassium 4.1 (3.3-5.1) mmol/L Chloride 108 (96-108) mmol/L Carbon Dioxide 23 (22-29) mmol/L Anion Gap 12 (12-20) BUN 14 (9-16) mg/dL Creatinine 0.69 (0.5-1.4) mg/dL Estim Creat Clear Calc 121.9 Estimated GFR > 60 Random Glucose 98 (60-115) mg/dL Calcium 9.0 (8.4-10.2) mg/dL Beta HCG, Quant 58760 mIU/mL Urine Color Yellow Urine Appearance Clear Urine pH 7.0 (5.0-9.0) Ur Specific [place] 1.025 (1.005-1.025) Urine Protein Negative (Neg-Trace) mg/dL Urine Glucose (UA) Negative (Negative) mg/dL Urine Ketones 15 (Negative) mg/dL Urine Blood Negative (Negative) Urine Nitrite Negative (Negative) Ur Leukocyte Esterase Small (1+) H (Negative) Urine RBC 0-2 (0-2) /HPF Urine WBC 6-10 H (0-5) /HPF Ur Squamous Epith Cells 6-10 (0-2) /HPF Urine Bacteria None Seen (None Seen) Hyaline Casts 0-2 (0-2) /LPF Blood Type B Positive Discharge Plan Discharge Clinical Impression: Threatened Patient Disposition: Home, Self-Care Instructions: Threatened Miscarriage (ED) Prescriptions: No Action sertraline 50 mg tablet 50 mg PO DAILY 30 Days Qty: 30 2RF quetiapine 50 mg tablet extended release 24 hr 50 mg PO BEDTIME 30 Days Qty: 30 2RF pantoprazole 40 mg tablet,delayed release (DR/EC) 40 mg PO DAILY 30 Days Qty: 30 5RF Print Language: Danish
[2025-09-17 17:50] LABS: MANUAL DIFF FLAG NO
[2025-09-17 17:54] LABS: Hematocrit 34.1 % (37.0-47.0); Hemoglobin 11.1 g/dl (12.0-16.0); Imm Gran Abs Auto 0.02 X10*3/uL (0.00-0.03); Imm Gran Pct Auto 0.3 % (0.0-0.4); Lymphocytes Absolute Auto 1.5 X10*3/uL (1.2-4.9); Mean Corpuscular HGB Conc 32.6 g/dl (31.0-35.0); Mean Corpuscular Hemoglobin 29.0 pg (27.0-33.0); Mean Corpuscular Volume 89.0 fL (80.0-98.0); NRBC Abs Auto 0.000 X10*3/uL (0.0-0.012); NRBC Pct Auto 0.0 /100WBC (0.0-0.2); Platelet Count 204 X10*3/uL (160-400); Red Blood Count 3.83 X10*6/uL (4.20-5.50); White Blood Count 6.9 X10*3/uL (4.8-10.8)
[2025-09-17 18:13] LABS: Anion Gap 12 (12-20); Blood Urea Nitrogen 14 mg/dL (9-16); Calcium 9.0 mg/dL (8.4-10.2); Carbon Dioxide 23 mmol/L (22-29); Chloride 108 mmol/L (96-108); Creatinine Clr Calc Pharmacy 121.9; Estimated Glomerular Filt Rate > 60; Potassium 4.1 mmol/L (3.3-5.1); Sodium 139 mmol/L (135-145)
[2025-09-17 20:45] LABS: Appearance Urine Clear; Glucose Urine UA Negative (Negative); PH 7.0 (5.0-9.0); Specific Gravity - Urine 1.025 (1.005-1.025); UMIC TRIGGER UA YES
--- OUTSIDE RECORDS SUMMARY | 2025-09-17 21:45 | XMS_ITS | Clinical Summary ---
Demographics Address [address] [place] [address] Home Phone Mobile Phone Email Address Email Address Preferred Language en Marital Status Single Episcopal Affiliation Unknown Race Unknown Ethnic Group or Author Organization [email or web address] Address [address] [place] [address] Care Team Providers Care Certified Personal Chef Name Role Phone Tom Lucero MD Primary Care Provider [phone] Surgical History Surgery Date Site/Laterality Comments OTHER [...] 11/01/2024 11/01/2014, 10/25/2012 COVID-19 Vaccine (1 - 2024-2 6 season) 2025 Influenza Vaccine (#1) 2025 09/01/2014 [...] age to complete this topic Care Teams Certified Personal Chef Relationship Specialty Start Date End Date Tom Lucero MD [address] [place] [address] [address] [place] PCP - General Internal Medicine 11/05/21
--- NOTE | 2025-09-17 22:19 | ED.GENADULT ---
HPI - General Adult General Chief complaint: OB Stated complaint: Issues Time Seen by Provider: 09/17/25 21:42 History of Present Illness HPI narrative: Patient is 29 years old presented today with having vaginal spotting. Ongoing for 1 day. Positive nausea. Previous history of UTI currently on antibiotics already. . Already seen by Ob earlier. Patient presented to the ED because of the spotting. There is no abdominal pain. There is history of hyperemesis. Patient from home. This is a naturally conceived baby. Related Data Previous Rx's ?Medication ?Instructions ?Recorded pantoprazole 40 mg tablet,delayed 40 mg PO DAILY 30 days #30 tabs 07/19/25 release quetiapine 50 mg tablet,extended 50 mg PO BEDTIME 30 days #30 tabs 07/19/25 release 24 hr sertraline 50 mg tablet 50 mg PO DAILY 30 days #30 tabs 07/19/25 Allergies Allergy/AdvReac Type Severity Reaction Status Date / Time amoxicillin (From AUGMENTIN) Allergy Unknown HIVES Verified 09/17/25 17:16 bee pollen (Bee Stings) Allergy Unknown SWELLING Verified 09/17/25 17:16 cephalexin (CEPHALEXIN) Allergy Unknown HIVES Verified 09/17/25 17:16 clavulanic acid (From Allergy Unknown HIVES Verified 09/17/25 17:16 AUGMENTIN) Review of Systems Review of Systems: Positive PMFSH Past Medical History Attestation statement: The following information was validated with the patient. Medical History Hematoma of left thigh Genetic testing Insomnia Major depression, recurrent GERD without esophagitis Obesity (BMI 30-39.9) Pseudotumor cerebri Migraine Anxiety Skin abscess Surgical History Hx of gastric bypass (~11/30/18) Family History Family History Mother Cervical cancer Family history of stomach cancer Substance use disorder Other Mental health disorder Social History Social History Household Members: Spouse and Children Housing: House Alcohol intake: current Alcohol intake frequency: holidays/special occasions only Patient Tobacco Use Status: Never used Tobacco e-Cigarette/Vaping Use: Never Used Second Hand Smoke Exposure: No Substance Use Type: Marijuana Advance Directives: No Advance Directives Information Provided: No Do you have a plan to hurt others: No Plan service: No Current occupational status: employed 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 Oriented X3. No acute distress. Eyes: Pupils equal, round and reactive to light. ENT: Pharynx normal. Neck: Normal inspection. Neck supple. No lymph nodes noted. No crepitus CVS: Normal heart rate and rhythm. Pulses normal. Normal S1 and S2 Respiratory: No respiratory distress. Breath sounds normal. No Wheezing. No rales Abdomen: Soft nontender. Skin: Skin warm and dry. Normal skin color. Normal skin turgor. Extremities: No lower extremity edema. Neurovascular intact to all extremities. No Lacerations. No Rash Neuro: Oriented X 3. No motor deficit. No sensory deficit. Moving all extermities. No slurred speech Vital Signs: Vital Signs - 24 hr 09/17/25 17:14 Temperature 98.0 F Pulse Rate 71 Respiratory Rate 16 Blood Pressure 130/57 L Pulse Oximetry 98 Oxygen Delivery Method Room Air BMI result Body Mass Index 33.2 Medical Decision Making Medical Decision Making [facility] Narrative: Patient well-appearing. Ultrasound positive for having an IUP. Heart rate was 169. Patient no acute distress. Urine showed contamination already on UTI medication. White count is normal electrolytes normal blood type is B-positive no signs of ABO incompatibility quant is 90,000. Currently in stable condition will discharge home. No evidence for ectopic. Differential Diagnosis Differential Diagnoses: The differential diagnosis associated with the presentation includes Ectopic versus versus miscarriage versus threatened ab Admission/Observation Consideration of admission/observation: Escalation of care including admission/observation considered Lab Data [facility] Lab Attestation statement: I reviewed the patient's lab results. 09/17/25 17:33 09/17/25 17:33 Labs: Lab Results 09/17/25 09/17/25 Range/Units 17:33 20:33 WBC 6.9 (4.8-10.8) X10*3/uL RBC 3.83 L (4.20-5.50) X10*6/uL Hgb 11.1 L (12.0-16.0) g/dl Hct 34.1 L (37.0-47.0) % MCV 89.0 (80.0-98.0) fL MCH 29.0 (27.0-33.0) pg MCHC 32.6 (31.0-35.0) g/dl RDW 13.4 (11.0-16.0) % Plt Count 204 (160-400) X10*3/uL MPV 11.2 (9.4-12.3) fL Immature Gran % (Auto) 0.3 (0.0-0.4) % Neut % (Auto) 65.5 (45-73) % Lymph % (Auto) 21.1 (20-40) % [place] % (Auto) 9.3 (2-11) % Eos % (Auto) 2.9 (0-4) % Baso % (Auto) 0.9 (0-2) % Lymph # (Auto) 1.5 (1.2-4.9) X10*3/uL [place] # (Auto) 0.6 (0.1-1.2) X10*3/uL Eos # (Auto) 0.2 (0.0-0.4) X10*3/uL Baso # (Auto) 0.1 (0.0-0.2) X10*3/uL Abs Immat Gran (auto) 0.02 (0.00-0.03) X10*3/uL Absolute Neuts (auto) 4.5 (2.0-8.3) x10*3/uL Absolute Nucleated RBC 0.000 (0.0-0.012) X10*3/uL Nucleated RBC % (auto) 0.0 (0.0-0.2) /100WBC Sodium 139 (135-145) mmol/L Potassium 4.1 (3.3-5.1) mmol/L Chloride 108 (96-108) mmol/L Carbon Dioxide 23 (22-29) mmol/L Anion Gap 12 (12-20) BUN 14 (9-16) mg/dL Creatinine 0.69 (0.5-1.4) mg/dL Estim Creat Clear Calc 121.9 Estimated GFR > 60 Random Glucose 98 (60-115) mg/dL Calcium 9.0 (8.4-10.2) mg/dL Beta HCG, Quant 26805 mIU/mL Urine Color Yellow Urine Appearance Clear Urine pH 7.0 (5.0-9.0) Ur Specific [place] 1.025 (1.005-1.025) Urine Protein Negative (Neg-Trace) mg/dL Urine Glucose (UA) Negative (Negative) mg/dL Urine Ketones 15 (Negative) mg/dL Urine Blood Negative (Negative) Urine Nitrite Negative (Negative) Ur Leukocyte Esterase Small (1+) H (Negative) Urine RBC 0-2 (0-2) /HPF Urine WBC 6-10 H (0-5) /HPF Ur Squamous Epith Cells 6-10 (0-2) /HPF Urine Bacteria None Seen (None Seen) Hyaline Casts 0-2 (0-2) /LPF Blood Type B Positive Independent Interpretation I performed an independent interpretation of an: Ultrasound (Positive IUP) Radiology Impression Discussion of test interpretation with radiology: I have reviewed the radiologist's reading. Independent Historian Clinical information obtained from an independent historian. History obtained from or confirmed by: Spouse Chronic Conditions Social Determinants Patient?s care significantly limited by Social Determinants of Health including: Problems related to primary support group Discharge Plan Discharge Clinical Impression: Threatened Patient Disposition: Home, Self-Care Instructions: Threatened Miscarriage (ED) Prescriptions: No Action sertraline 50 mg tablet 50 mg PO DAILY 30 Days Qty: 30 2RF quetiapine 50 mg tablet extended release 24 hr 50 mg PO BEDTIME 30 Days Qty: 30 2RF pantoprazole 40 mg tablet,delayed release (DR/EC) 40 mg PO DAILY 30 Days Qty: 30 5RF Print Language: Turkish
[2025-09-17 23:31] VITALS: BP 00/00; PULSE 0; RESP 0; TEMP -17.7; TEMP 0
== END 2025-09-17 23:32 | disposition home or self-care (01) ==
PROVIDERS: Physician Assistant; Emergency Provider Emergency Medicine Emergency Medical Services; PCP Internal Medicine
DX: O20.0 Threatened abortion (principal)
CPT/HCPCS: 36415; 76801; 80048; 81001; 84702; 85025; 86900; 86901; 99284

== ENCOUNTER → 2025-09-17 17:18 | Outpatient (BNV) | payer OTHER, SELFPAY | PROVIDERS: PCP Internal Medicine; Visit Provider Radiology Diagnostic Radiology | DX: O26.851 Spotting complicating pregnancy, first trimester (principal); Z3A.01 Less than 8 weeks gestation of pregnancy | CPT/HCPCS: 76801 ==